=== PATIENT | female | born 1955 | race Caucasian/White ===

== ENCOUNTER 2020-02-09 09:20 | Outpatient (CLI) | payer OTHER, SELFPAY ==
--- NOTE | 2020-02-09 09:26 | MM_ITS ---
WS: [id number] DIAGNOSTIC BILATERAL DIGITAL MAMMOGRAM WITH CAD HISTORY: HX OF LT BREAST CA COMPARISON: 11/27/2014, 10/15/2014, 03/22/2013 and 03/18/2011 TECHNIQUE: Bilateral craniocaudad, mediolateral oblique, and mediolateral views are submitted. Comput er aided detection utilized. Breast composition: There are scattered areas of fibroglandular density. Ovoid nodule measuring 13 mm maximum diameter along the 3:00 axis of the LEFT breast, posterior. This nodule has been present on prior studies but has slightly increased in size by 3 to 4 mm in diameter. No associated distortion. There are a few additional benign calcifications within each breast. LEFT breast: Spot compression views (CC and MLO). True ML. Ultrasound to follow if abnormality sky erickson. MM/[place] [id number] IMPRESSION: BI-RADS: 0-Incomplete: Need additional imaging evaluation FOLLOW UP: Need Additional Imaging
== END 2020-02-09 09:21 | disposition home or self-care (01) ==
LOC: RADSHAW 09:20
PROVIDERS: PCP Family Medicine; Visit Provider Family Medicine
DX: Z85.3 Personal history of malignant neoplasm of breast (principal); N63.25 Unspecified lump in the left breast, overlapping quadrants
CPT/HCPCS: 77066; 77067

== ENCOUNTER 2020-03-15 08:21 | Outpatient (CLI) | payer OTHER, SELFPAY ==
--- NOTE | 2020-03-15 08:30 | US_ITS ---
WS: [id number] ADDITIONAL VIEWS LEFT MAMMOGRAM LEFT BREAST ULTRASOUND HISTORY: ABNORMAL MAMMOGRAM COMPARISON: 02/09/2020, 11/27/2014, 10/15/2014 and 03/22/2013 LEFT MAMMOGRAM: Spot compression views and true ML. Mass persists in the LEFT breast at 3:00 at a mid to posterior depth measuring 10.7 mm. Hyperdense fo cus along the periphery is probably a calcification. This mass has slowly increased in size from 2015 . Prior mammograms to 2015 are reviewed and this nodule is not present. LEFT BREAST ULTRASOUND 2-D and color Doppler imaging submitted. Ultrasound directed to the lateral LEFT breast from 2-4 o'clock. There is a hypoechoic nodule with a peripheral calcification or hyperechoic focus measuring 1.1 x 0.9 x 0.9 cm. Corresponds in size and l ocation and configuration to the mammographic abnormality. This mass is 3 cm from the nipple at 3:00. US/US breast LT limited* [id number] IMPRESSION: BI-RADS: 4-Suspicious Finding-Biopsy Should Be Considered FOLLOW UP: Biopsy Recommended Ultrasound-guided biopsy recommended of the LEFT breast mass at 3:00. Nodule is new since 2014 and slowly increased in size.
== END 2020-03-15 08:22 | disposition home or self-care (01) ==
LOC: RADSHAW 08:23
PROVIDERS: PCP Family Medicine; Visit Provider Family Medicine
DX: R92.8 Other abnormal and inconclusive findings on diagnostic imaging of breast (principal); N63.25 Unspecified lump in the left breast, overlapping quadrants
CPT/HCPCS: 76642; 77065

== ENCOUNTER → 2020-04-25 15:50 | Outpatient (BNVA) | payer OTHER, SELFPAY | PROVIDERS: PCP Family Medicine; Visit Provider Internal Medicine Cardiovascular Disease | DX: I47.1 Supraventricular tachycardia (principal); R00.2 Palpitations; R06.02 Shortness of breath | CPT/HCPCS: 80048; 83735 ==

== ENCOUNTER → 2020-05-15 09:12 | Outpatient (BNVA) | payer OTHER, SELFPAY | PROVIDERS: PCP Family Medicine; Referring Provider Family Medicine; Visit Provider Specialist | DX: M25.512 Pain in left shoulder (principal) | CPT/HCPCS: 73030 ==

== ENCOUNTER 2020-05-22 15:16 | Outpatient (CLI) | payer OTHER, SELFPAY ==
--- NOTE | 2020-05-22 15:15 | MR_ITS ---
WS: [id number] MRI LEFT SHOULDER NONCONTRAST TECHNIQUE: Sagittal T2, coronal T1, T2 and proton density imaging. Axial gradient PDE imaging. CLINICAL INFORMATION: M25.519 Pain in unspecified shoulder COMPARISON: None. FINDINGS: Mild degenerative arthritis at the AC joint with synovial thickening and mild edema. Mild downsloping of the acromion with subacromial spurring. Moderate narrowing subacromial space with impingement on the distal supraspinatus tendon. Tendinopathy in the distal supraspinatus. Tiny undersurface tear at the distal insertion. Normal infraspinatus. Normal teres minor and subscapularis. Normal biceps tendon in the bicipital avril ove. Normal biceps labral anchor. Glenoid labrum appears grossly normal. Normal intraarticular biceps tendon. MR/MR shoulder LT wo con* [id number] IMPRESSION: 1. Mild degenerative arthritis at the AC joint with moderate narrowing of the subacromial space. 2. Tendinopathy in the distal supraspinatus with a tiny undersurface tear at t he insertion. 3. Rotator cuff is otherwise intact. 4. Normal biceps tendon in the bicipital groove. Normal biceps labral anchor. 5. Glenoid labrum appears grossly normal.
== END 2020-05-22 15:17 | disposition home or self-care (01) ==
LOC: RADSHAW 15:21
PROVIDERS: PCP Family Medicine; Visit Provider Specialist
DX: M19.012 Primary osteoarthritis, left shoulder (principal)
CPT/HCPCS: 73221

== ENCOUNTER → 2020-06-27 15:46 | Outpatient (BNVA) | payer OTHER, SELFPAY | PROVIDERS: PCP Family Medicine; Visit Provider Internal Medicine Cardiovascular Disease | DX: Z20.828 Contact with and (suspected) exposure to other viral communicable diseases (principal); I47.1 Supraventricular tachycardia; R00.2 Palpitations; R55 Syncope and collapse; Z79.01 Long term (current) use of anticoagulants; R06.02 Shortness of breath | CPT/HCPCS: 85025; 87635 ==

== ENCOUNTER 2020-07-01 11:04 | Day surgery (SDC) | payer OTHER, SELFPAY ==
[2020-07-01 11:52] VITALS: BP 121/72; PULSE 66; RESP 16; TEMP 36.4; O2SAT 97; BMI 47.0
[2020-07-01] MEDS: cephALEXin 500 mg Capsule 2000 MG PO (12:30)
--- NOTE | 2020-07-01 12:47 | W.PM.OPSUD ---
Surgery/Procedure H&P Update DATE OF PROCEDURE: July 01, 2020 DATE H&P PERFORMED: 06/26/20 H&P UPDATE INFORMATION: I have reviewed H&P completed within last 30 days, I have examined patient prior to procedure and No changes to prior documentation PREOP DIAGNOSIS: Near syncope PLANNED PROCEDURE: Operation Date: 07/01/20 12:00 Proposed Procedures p Loop Recorder Insertion [id number] R55(Not Applicable) - Kisha Thompson MD PATIENT REASSESSED PRIOR TO SEDATION, WITH NO CHANGE NOTED: Yes PHYSICAL EXAM: alert, clear to auscultation bilaterally, regular rate & rhythm and operative site marked AIRWAY EVAL/ANESTHESIA PLAN: normal airway, ASA II, Local Anesthesia, Risks, benefits & alternatives of sedation and/or procedure discussed and Patient agrees to continue as planned
--- NOTE | 2020-07-01 13:02 | W.PM.OPSUD ---
Surgery/Procedure H&P Update DATE OF PROCEDURE: July 01, 2020 DATE H&P PERFORMED: 06/27/20 H&P UPDATE INFORMATION: I have reviewed H&P completed within last 30 days, I have examined patient prior to procedure and No changes to prior documentation PREOP DIAGNOSIS: Near syncope PLANNED PROCEDURE: Operation Date: 07/01/20 12:00 Proposed Procedures p Loop Recorder Insertion [id number] R55(Not Applicable) - Kisha Thompson MD PATIENT REASSESSED PRIOR TO SEDATION, WITH NO CHANGE NOTED: Yes PHYSICAL EXAM: alert, oriented x 3, clear to auscultation bilaterally, regular rate & rhythm and operative site marked AIRWAY EVAL/ANESTHESIA PLAN: normal airway, ASA II and Local Anesthesia
--- NOTE | 2020-07-01 13:03 | PM.OP ---
Operative Report Date of procedure: July 01, 2020 Pre-op Diagnosis: Near syncope Procedure: LOCATION: Cardiac Catheterization Laboratory REFERRING PROVIDER: Dr. LUBA Thompson PREOPERATIVE DIAGNOSIS: Recurrent near syncope POSTOPERATIVE DIAGNOSIS: Same ESTIMATED BLOOD LOSS: None COMPLICATIONS: None. [] BRIEF HISTORY: 65-year-old white female presented with complaints of recurrent episodes of palpitations/near syncope. She had an event monitor which was unremarkable with no arrhythmias. Her symptoms are very infrequent. For further evaluation of her symptoms, an implantable monitoring analyst was recommended. PROCEDURE: The procedure was explained to the patient in detail with the risks and benefits. The patient understood this well and consented to proceed. The patient was brought to the CPR you. The left side of the neck and the precordial region were cleaned and draped in a sterile fashion. 1% Xylocaine was used as local anesthetic agent. The patient was given a total of [] milligrams of Versed and [] milligrams of Fentanyl for IV sedation and analgesia. A [] inch long incision was made at the premarked area. By sharp and blunt dissection, the implantable monitoring analyst (ICM) pocket was made. Complete hemostasis was achieved. The pocket was copiously irrigated with Vancomycin solution. The implantable monitoring analyst was inserted in the pocket adn was attached to the pectoralis fascia by suturing with 0-Surgilon. Sponge counts were confirmed. The pocket was closed in layers. The skin was approximated using 4-0 Vicryl. IMPLANTED DEVICE: [] Model number: [] Serial number: [] Make: [] Parameters: Fast VT rate: 200 beats per minute (300 ms) for 30/40 beats. Ventricular tachycardia rate: 150 beats per minute for 16 beats. Asystole: 3 seconds. Bradycardic rate: 40 beats per minute for 4 beats. Symptom recording for three 7.5 minute episodes. Atrial fibrillation detection was turned on. Pressure dressing was applied over the insertion site. The patient was transferred to the medical floor in stable condition.
--- NOTE | 2020-07-01 13:10 | P.OP_ITS ---
Operative Report Date of procedure: July 01, 2020 Pre-op Diagnosis: Near syncope Procedure: Date of Procedure: 07/01/2020 Name of the procedure: IMPLANTABLE WEIGHT YARDAGE CHECKER INSERTION LOCATION: [facility] REFERRING PROVIDER: LUBA Thompson MD PREOPERATIVE DIAGNOSIS: Recurrent palpitations/near syncope POSTOPERATIVE DIAGNOSIS: Same. ESTIMATED BLOOD LOSS: None COMPLICATIONS: None. BRIEF HISTORY: Patient presented with recurrent episodes of palpitations/near syncope. He had an event monitor which didn't reveal any significant arrhythmias to explain the symptoms. For further evaluation, an implantable wax engraver was recommended PROCEDURE: The procedure was explained to the patient in detail with the risks and benefits. The risk of bleeding, hematoma, vascular injury, infection and other concomitant complications were explained in detail. The patient understood this well and consented to proceed. The patient was brought to the CPR you. The left side of the chest was cleaned and draped in a sterile fashion. 1% Xylocaine was used as local anesthetic agent. An incision was made in the left fourth intercostal space. Making use of the application device, the implantable wax engraver was inserted, subcutaneously. 5 minutes of manual pressure was applied, at the puncture site. The patient tolerated the procedure very well and there were no complications. No bleeding or hematoma. Steri-Strips were applied over the insertion site followed by a sterile dressing. Patient was sent back to the medical floor in stable condition IMPLANTED DEVICE Reveal LINQ Model number: [id number] Serial number: [id number] Make: [employer] Parameters: Standard settings were applied( (tachycardia rate of 152 beats per minute , bradycardia rate of 40 beats per minute and a pause of 3 seconds ; symptom recording -4 episodes of 7.5 minutes. Atrial fibrillation detection was turned on- recording threshold of ->6 minutes. Sensitivity was kept at 0.035 mV) The R wave sensing was 0.46 mV
[2020-07-01 13:42] VITALS: BP 135/62; PULSE 58; RESP 16; O2SAT 98
== END 2020-07-01 14:02 | disposition home or self-care (01) ==
PROVIDERS: PCP Family Medicine; Visit Provider Internal Medicine Cardiovascular Disease
PROC: (CPT 33285; principal; 2020-07-01 12:00)
DX: R55 Syncope and collapse (principal); J45.909 Unspecified asthma, uncomplicated; E78.5 Hyperlipidemia, unspecified; I10 Essential (primary) hypertension; E66.9 Obesity, unspecified; Z68.42 Body mass index [BMI] 45.0-49.9, adult; M19.90 Unspecified osteoarthritis, unspecified site; Z85.43 Personal history of malignant neoplasm of ovary
CPT/HCPCS: 12345; 33285; C1764

== ENCOUNTER → 2020-07-22 14:51 | Outpatient (BNVA) | payer OTHER, SELFPAY | PROVIDERS: PCP Family Medicine; Visit Provider Specialist | DX: M79.645 Pain in left finger(s) (principal) | CPT/HCPCS: 73140 ==

== ENCOUNTER 2020-07-22 15:37 | Outpatient (CLI) | payer OTHER, SELFPAY | END 2020-07-22 15:38 | disposition home or self-care (01) | LOC: SPT 07-23 08:41 | PROVIDERS: PCP Family Medicine; Visit Provider Specialist | DX: Z46.89 Encounter for fitting and adjustment of other specified devices (principal); M18.12 Unilateral primary osteoarthritis of first carpometacarpal joint, left hand; M18.11 Unilateral primary osteoarthritis of first carpometacarpal joint, right hand | CPT/HCPCS: 97760; L3924 ==

== ENCOUNTER 2020-07-30 06:00 | Outpatient (RCR) | payer OTHER, SELFPAY | END 2020-08-11 23:59 | disposition home or self-care (01) | LOC: SOT 06:00 | PROVIDERS: PCP Family Medicine; Referring Provider Specialist; Visit Provider Specialist | DX: M18.0 Bilateral primary osteoarthritis of first carpometacarpal joints (principal) | CPT/HCPCS: 97018; 97110; 97167; 97535 ==

== ENCOUNTER 2020-08-12 06:00 | Outpatient (RCR) | payer OTHER, SELFPAY | END 2020-09-08 23:59 | disposition home or self-care (01) | LOC: SOT 06:00 | PROVIDERS: PCP Family Medicine; Referring Provider Specialist; Visit Provider Specialist | DX: M18.0 Bilateral primary osteoarthritis of first carpometacarpal joints (principal) | CPT/HCPCS: 97018; 97035; 97110; 97530; 97535 ==

== ENCOUNTER → 2020-09-02 11:07 | Outpatient (BNVA) | payer OTHER, SELFPAY | PROVIDERS: PCP Family Medicine; Visit Provider Internal Medicine | DX: M19.041 Primary osteoarthritis, right hand (principal); M19.042 Primary osteoarthritis, left hand; M32.9 Systemic lupus erythematosus, unspecified; M25.50 Pain in unspecified joint; Z11.59 Encounter for screening for other viral diseases; R21 Rash and other nonspecific skin eruption; G62.9 Polyneuropathy, unspecified; Z87.891 Personal history of nicotine dependence | CPT/HCPCS: 99204 ==

== ENCOUNTER 2020-09-09 06:00 | Outpatient (RCR) | payer OTHER, SELFPAY | END 2020-10-09 23:00 | disposition home or self-care (01) | LOC: SOT 06:00 | PROVIDERS: PCP Family Medicine; Referring Provider Specialist; Visit Provider Specialist | DX: Z46.4 Encounter for fitting and adjustment of orthodontic device (principal); M18.0 Bilateral primary osteoarthritis of first carpometacarpal joints | CPT/HCPCS: 97110 ==

== ENCOUNTER → 2020-10-29 13:49 | Outpatient (BNVA) | payer OTHER, SELFPAY | PROVIDERS: PCP Family Medicine; Visit Provider Internal Medicine | DX: M25.50 Pain in unspecified joint (principal); R21 Rash and other nonspecific skin eruption; Z87.891 Personal history of nicotine dependence | CPT/HCPCS: 99214 ==

== ENCOUNTER 2020-12-10 11:40 | Outpatient (CLI) | payer OTHER, SELFPAY | END 2020-12-10 11:41 | disposition home or self-care (01) | LOC: LAB 03-05 10:27 | PROVIDERS: PCP Family Medicine; Visit Provider Internal Medicine Pulmonary Disease | DX: J45.909 Unspecified asthma, uncomplicated (principal) | CPT/HCPCS: 82785; 86003 ==

== ENCOUNTER → 2020-12-16 10:53 | Outpatient (BNVA) | payer OTHER, SELFPAY | PROVIDERS: PCP Family Medicine; Referring Provider Family Medicine; Visit Provider Podiatrist Foot & Ankle Surgery | DX: M79.672 Pain in left foot (principal) | CPT/HCPCS: 73630 ==

== ENCOUNTER 2020-12-30 13:32 | Outpatient (CLI) | payer OTHER, SELFPAY ==
--- NOTE | 2020-12-30 13:39 | MR_ITS ---
WS: [id number] MRI LEFT FOOT without CONTRAST. COMPARISON: LEFT foot radiographs 12/16/2020 Multiplanar, multisequence imaging is performed without contrast. Nondisplaced fracture has healed involving the proximal fifth toe. There is no marrow edema although there is decreased signal on the T1 sequences. There is mild displacement of the medial and lateral c ollateral ligaments with some increased T2 signal surrounding the fifth metatarsophalangeal joint. Fa vor there was probably some ligament injury and rupture. There is only minimal increased signal in th e soft tissues now present. The lateral collateral ligament cannot be seen in its entirety. No additional soft tissue or bone abnormalities. MR/MR foot LT wo con* [id number] IMPRESSION: 1. Highly suspicious for torn lateral collateral ligament and sprain of the me dial collateral ligament involving the fifth metatarsophalangeal joint. 2. Healing nondisplaced fracture proximal fifth toe.
== END 2020-12-30 13:33 | disposition home or self-care (01) ==
LOC: RADSHAW 13:35
PROVIDERS: PCP Family Medicine; Visit Provider Podiatrist Foot & Ankle Surgery
DX: M79.672 Pain in left foot (principal); S92.912A Unspecified fracture of left toe(s), initial encounter for closed fracture; X58.XXXA Exposure to other specified factors, initial encounter
CPT/HCPCS: 73718

== ENCOUNTER → 2021-01-15 10:12 | Outpatient (BNVA) | payer OTHER, SELFPAY | PROVIDERS: PCP Family Medicine; Visit Provider Internal Medicine Pulmonary Disease | DX: Z01.812 Encounter for preprocedural laboratory examination (principal); Z20.822 Contact with and (suspected) exposure to COVID-19 | CPT/HCPCS: 87635 ==

== ENCOUNTER 2021-01-21 15:00 | Outpatient (CLI) | payer OTHER, SELFPAY ==
--- NOTE | 2021-01-21 15:47 | PFTS_ITS ---
Date of Study:01/21/21 Date of Dictation: MECHANICS: Forced vital capacity (FVC) is reduced. Forced expiratory volume in one second (FEV1) is reduced. FEV1/FVC is normal. FLOW VOLUME LOOP: Narrow. LUNG VOLUMES: Total lung capacity (TLC) is reduced. Residual volume (RV) is normal. DIFFUSING CAPACITY FOR CARBON MONOXIDE: Normal. INTERPRETATION: The pulmonary function tests are consistent with moderate restriction. There is a significant postbronchodilator response. Lung volumes are consistent with restrictive lung disease. Gas exchange (DLCO) is normal. MTDD
== END 2021-01-21 15:01 | disposition home or self-care (01) ==
LOC: RT 15:04
PROVIDERS: PCP Family Medicine; Visit Provider Internal Medicine Pulmonary Disease
DX: J45.909 Unspecified asthma, uncomplicated (principal)
CPT/HCPCS: 82785; 86003; 94060; 94726; 94729; J7611

== ENCOUNTER → 2021-04-01 09:58 | Outpatient (BNVA) | payer OTHER, SELFPAY | PROVIDERS: PCP Family Medicine; Visit Provider Internal Medicine | DX: E66.9 Obesity, unspecified (principal); J98.4 Other disorders of lung | CPT/HCPCS: 36415; 80053; 85025; 86140; 86160 ==

== ENCOUNTER 2021-05-07 13:25 | Outpatient (CLI) | payer OTHER, SELFPAY ==
--- NOTE | 2021-05-07 13:30 | CT_ITS ---
WS: [id number] CT CHEST CT-HIGH RESOLUTION, NONCONTRAST. HISTORY: Interstitial lung disease. Technique: High-resolution chest CT is performed in inspiration, expiration, supine and prone positio laith. All CT scans at [facility] use at least one of these dose optimization techniques: automated exposure control; mA and/or kV adjustment per patient size (includes targeted exams where dose is mat ched to clinical indication); or iterative reconstruction. DLP: 2443.69 mGy.cm COMPARISON: 12/09/2016. Findings: Initial imaging through the lungs is significantly degraded by motion artifact. Lungs are m ildly hyperexpanded but there is no honeycombing or significant bronchiectasis identified. No persist ent groundglass attenuation or atelectasis. No lobar collapse. No pleural effusions or pneumothorax. No air trapping. No groundglass attenuation. Heart does appear moderately enlarged. No pericardial or pleural effusion. Prior cholecystectomy. No adrenal mass. CT/CT chest wo con [id number] Impression: 1. Quality of examination is limited by significant breathing motion artifact on the initial imaging through the chest. 2. No honeycombing or bronchiectasis or air trapping. No evidence for intersti tial lung disease.
--- NOTE | 2021-05-07 14:15 | USCV_ITS ---
Lea Lau Age: 66 Gender: F : 1955 Exam Date: 05/07/2021 14:08 Ordering Phys: Cole Red MD Technologist: Sandra Ruano [place]am [place] [facility] [place]: exertional sob BP: / HR: 62 Rhythm: Sinus Technical Quality: Adequate MEASUREMENTS (Male / Female) Normal Values 2D ECHO LV Diastolic Diameter PLAX 4.4 cm 4.2 - 5.9 / 3.9 - 5.3 cm LV Systolic Diameter PLAX 2.1 cm IVS Diastolic Thickness 1.3 cm 0.6 - 1.0 / 0.6 - 0.9 cm IVS Systolic Thickness 2.0 cm LVPW Diastolic Thickness 1.1 cm 0.6 - 1.0 / 0.6 - 0.9 cm LVPW Systolic Thickness 2.0 cm LVOT Diameter 2.0 cm LV Ejection Fraction 2D Teich 84.3 % LV Ejection Fraction MOD 2C 79.1 % LV Ejection Fraction 2C AL 80.6 % LA Diameter 3.2 cm LA Width 3.0 cm LA Height 5.9 cm RA Width 1.8 cm RA Height 5.5 cm Aorta at Sinotubular Diameter 2.6 cm DOPPLER AV Peak Velocity 151.0 cm/s LVOT Peak Velocity 158.0 cm/s AV Area Cont Eq vti 3.4 cm squared AV Area Cont Eq pk 3.4 cm squared MV Peak Velocity 104.0 cm/s MV Area PHT 3.1 cm squared Mitral E to A Ratio 0.8 MV E' Velocity 46.0 cm/s Mitral E to MV E' Ratio 12.3 Mitral E to LV E' Lateral Ratio 11.0 Mitral E to LV E' Septal Ratio 13.9 TR Peak Velocity 69.0 cm/s TR Peak Gradient 1.9 mmHg Right Atrial Pressure 3.0 mmHg Pulmonary Artery Systolic Pressu 4.9 mmHg PV Peak Velocity 84.0 cm/s RV Acceleration Time 0.1 s RV Ejection Time 0.3 s RV AcT/ET 0.4 FINDINGS Left Ventricle Normal left ventricular size and systolic function, EF 74 %. Mild left ventricular hypertrophy. No regional wall motion abnormalities. Grade I/IV diastolic dysfunction (abnormal relaxation filling pattern), normal to mildly elevated filling pressures. Right Ventricle The right ventricle is normal in size and function. Right Atrium The right atrium is normal in size. Left Atrium The left atrium is normal in size. Mitral Valve Trace mitral valve regurgitation. Aortic Valve Thickened aortic valve. Tricuspid Valve No gross abnormalities noted. Pulmonic Valve No gross abnormalities noted Pericardium Normal pericardium without effusion. Aorta Normal ascending aorta dimension. CONCLUSIONS Normal left ventricular size and systolic function, EF 74 %. Mild left ventricular hypertrophy. No regional wall motion abnormalities. Grade I/IV diastolic dysfunction (abnormal relaxation filling pattern), normal to mildly elevated filling pressures. Trace mitral valve regurgitation. There is no pericardial effusion. There are no intracardiac masses. Normal pulmonary artery peak systolic pressure No previous study is available for comparison. Dr Kisha Thompson MD FACC (Electronically Signed) Final Date: 07 May 2021 23:39 S
== END 2021-05-07 13:26 | disposition home or self-care (01) ==
LOC: RAD 13:27
PROVIDERS: PCP Family Medicine; Visit Provider Internal Medicine Pulmonary Disease
DX: J98.4 Other disorders of lung (principal); E66.9 Obesity, unspecified; R06.02 Shortness of breath; R06.00 Dyspnea, unspecified; I34.0 Nonrheumatic mitral (valve) insufficiency
CPT/HCPCS: 71250; 93306

== ENCOUNTER 2021-05-13 09:24 | Outpatient (CLI) | payer OTHER, SELFPAY | END 2021-05-13 09:25 | disposition home or self-care (01) | LOC: SPT 09:25 | PROVIDERS: PCP Family Medicine; Visit Provider Podiatrist Foot & Ankle Surgery | DX: Z46.89 Encounter for fitting and adjustment of other specified devices (principal); M77.42 Metatarsalgia, left foot; M79.673 Pain in unspecified foot | CPT/HCPCS: 97760; L4397 ==

== ENCOUNTER 2021-08-07 06:00 | Outpatient (RCR) | payer OTHER, SELFPAY | END 2021-08-11 23:59 | disposition home or self-care (01) | LOC: SOT 06:00 | PROVIDERS: PCP Family Medicine; Referring Provider Family Medicine; Visit Provider Family Medicine | DX: M79.643 Pain in unspecified hand (principal) | CPT/HCPCS: 97165 ==

== ENCOUNTER 2021-08-16 17:30 | Emergency (ER) | payer OTHER, MEDICARE, SELFPAY ==
[2021-08-16] VITALS (8 sets, daily range): BP systolic 133–145; BP diastolic 47–72; PULSE 80–95; RESP 16–18; TEMP 38.4; O2SAT 90–100; BMI 46.1
--- NOTE | 2021-08-16 19:02 | W.ED.COVID ---
HPI - COVID General: Chief Complaint: COVID symptoms Stated Complaint: SOB; Cough Time Seen by Provider: 08/16/21 19:02 Triage information: Has fever, cough or shortness of breath. No known COVID + exposure last 14 days History of Present Illness: Ms. Ha is a 65-year-old lady with complex past medical history including hypertension, hyperlipidemia, obesity, restrictive lung disease with positive bronchodilator results and numerous medication allergies who presents emergency department due to generalized symptoms. She reports being sick for a number of weeks now however symptoms have worsened over the past few days. She has had initially what was described as upper respiratory congestion with nasal congestion and sinus pressure and headache. Subsequently she feels like it was lower in her chest. She has had cough, pain in her back, and generalized malaise. She has had diarrhea and nausea but no vomiting. She has had some abdominal discomfort. Overall the course of symptoms has been worsening. The intensity is moderate to severe. She has tried symptom treatment at home without significant relief. She has not been vaccinated against Covid. Prior covid testing: no COVID 19 common symptoms: positive non-productive cough, dyspnea, nasal congestion, nausea and diarrhea Onset (ago): week(s) Severity: moderate Pertinent comorbid conditions: hypertension and COPD/respiratory disease COVID Results: Nasal/Oral Coronavirus 2019 PCR Not detected 01/15/21 10:12 01/15/21 SARS-CoV-2 (PCR) Detected (NOT DETECT) A 08/16/21 20:25 08/16/21 Coronavirus Type 229E (PCR) Not detected (NOT DETECT) 08/16/21 20:25 08/16/21 Review of Systems General: Reports: 10 or more systems reviewed and unremarkable except in HPI and below ENMT: Reports: nasal congestion Resp: Reports: dyspnea and non-productive cough GI: Reports: nausea and diarrhea PFSH ED PFSH: Medical History (Updated 08/21/21 @ 17:41 by Gómez Edward MD) Asthma Benign essential HTN Bursitis Carpal tunnel syndrome CKD (chronic kidney disease) COVID-19 Dyslipidemia History of breast cancer Hx of ovarian cancer Hyperlipidemia Hypertension Lupus Near syncope Neuropathy Obesity Osteoarthritis Ovarian cancer PTSD (post-traumatic stress disorder) SVT (supraventricular tachycardia) Transient global amnesia Ulnar tunnel syndrome Surgical History (Updated 08/21/21 @ 17:41 by Gómez Edward MD) H/O lumpectomy H/O oophorectomy History of cataract extraction History of hysterectomy History of tonsillectomy and adenoidectomy Hx of section Hx of cholecystectomy Hx of umbilical hernia repair Family History Daughter Anesthesia complication Father CAD (coronary artery disease) Dementia Stroke Grandmother Cancer Grandfather Cancer Brother Lung disease Mother Suicide Sister Suicide Other Hyperlipidemia Hypertension Denies family history of Rheumatoid arthritis Diabetes Lupus Clotting disorder Chronic kidney disease (CKD) Bleeding disorder Social History Quit status (tobacco): has quit using tobacco Year quit tobacco: 2004 Former quit date comment: [id number] Second hand smoke exposure: No Smoking risk assessment/counseling performed?: Yes Alcohol intake: current Alcohol intake frequency: holidays/special occasions only Lives independently: Yes Household members: spouse Marital status: service: Yes Current occupational status: disabled Pets and animals: Yes History of recent travel: No Current gender identity: Female Physical Exam Const: COMMON NORMALS: alert GENERAL APPEARANCE: cooperative and well developed OTHER: Mildly ill appearance. HENMT: COMMON NORMALS: normocephalic and atraumatic HEAD & SCALP: normocephalic and atraumatic OTHER: Dry mucous membranes Eye: COMMON NORMALS: conjunctivae normal CONJUNCTIVA: Yes conjunctivae normal SCLERA: sclerae normal Neck/C-Spine: COMMON NORMALS: supple GENERAL: Yes trachea midline Resp: COMMON NORMALS: normal respiratory effort EFFORT & INSPECTION: Yes able to speak in complete sentences AUSCULTATION: rhonchi lower bilaterally Cardio: COMMON NORMALS: regular rate and regular rhythm RATE: regular rate RHYTHM: regular rhythm GI: COMMON NORMALS: Soft to palpation PALPATION: Yes Soft to palpation and No Tenderness to palpation present (GI) Extremity: GENERAL: Yes normal exam except as noted and No edema Neuro: COMMON NORMALS: moves all extremities SENSORIUM/ORIENTATION: Yes alert and No Orientation impaired Psych: COMMON NORMALS: mental status grossly normal and Normal thought process present THOUGHT PROCESS: Normal thought process present Course ED course: - Patient was seen and evaluated by me at bedside - Patient placed on cardiac monitors, IV access obtained - Initial evaluation notable for exam as above -Symptom treatments ordered - Labs notable for no significant hematologic abnormalities. Metabolic panel consistent with mild dehydration. Delta troponin is negative. Covid positive. - Imaging notable for patchy parenchymal opacities - Upon serial reexamination after treatment the patient was mildly improved - Based on patient history, evaluation, labs, and imaging as interpreted the most likely cause of the patient's condition is COVID-19 - The results of ED evaluation were discussed with the patient including prescriptions and/or symptomatic cares (if applicable) including appropriate and responsible use, followup plan, and return precautions. The patient verbalized understanding and felt safe for discharge. - Patient discharged in satisfactory condition. Note: Click bubbles or prepopulated carl[place] in note writing are used for assistance with data collection and billing and are inherently more limited than narrative and other text portions of this note. Please use narrative for additional clinical history and defer to narrative/free test for any case of contradictory information. If information appears in only free text or click bubble it should be considered present or absent as reported. Please contact note policy writer sales for clarifications of clinical information or contradictory information. MDM is a brief summary, contradictory or erroneous seeming information should be clarified and full note should be reviewed. Vital Signs: Vital signs: Vital Signs Temperature 101.2 F H 08/16/21 18:27 Pulse Rate 82 08/16/21 22:48 Respiratory Rate 17 08/16/21 22:48 Blood Pressure 145/47 08/16/21 22:48 Pulse Oximetry 98 08/16/21 23:09 MDM - COVID Medical Decision Making 66-year-old lady with history of restrictive lung disease with positive bronchodilator results presenting with shortness of breath and generalized symptoms. Patient found to be Covid positive which likely explains her symptoms. She does require 2 L of oxygen with exertion. She will be discharged with home oxygen and strict return precautions. Medical Records I reviewed the patient's medical records. Lab Data I reviewed the patient's lab results. : 08/16/21 19:50 08/16/21 19:50 Radiology Impressions Chest X-Ray 08/16/21 19:26 IMPRESSION: Patchy parenchymal opacities greater on left than right in the lower lungs. This could represent sequela of atypical pneumonia, including COVID-19 infection. Laboratory Results WBC 7.0 10^3/uL (4.0-10.0) 08/16/21 19:50 RBC 4.35 10^6/uL (4.1-5.3) 08/16/21 19:50 Hgb 12.6 g/dL (11.5-15.3) 08/16/21 19:50 Hct 38.6 % (37.0-47.0) 08/16/21 19:50 MCV 88.7 fl (81-99) 08/16/21 19:50 MCH 29.0 pg (28.0-34.0) 08/16/21 19:50 MCHC 32.6 g/dL (30.0-36.0) 08/16/21 19:50 RDW 13.0 % (12.1-15.1) 08/16/21 19:50 Plt Count 251 10^3/cmm (130-400) 08/16/21 19:50 MPV 10.3 fL (7.4-10.4) 08/16/21 19:50 Neut % (Auto) 76.3 % 08/16/21 19:50 Lymph % (Auto) 16.6 % 08/16/21 19:50 [place] % (Auto) 6.7 % 08/16/21 19:50 Eos % (Auto) 0.0 % 08/16/21 19:50 Baso % (Auto) 0.1 % 08/16/21 19:50 Neut # (Auto) 5.31 10^3/uL (1.8-7.7) 08/16/21 19:50 Lymph # (Auto) 1.2 10^3/uL (0.8-4.8) 08/16/21 19:50 [place] # (Auto) 0.5 10^3/uL (0.2-0.9) 08/16/21 19:50 Eos # (Auto) 0.0 10^3/uL (0.0-0.8) 08/16/21 19:50 Baso # (Auto) 0.0 10^3/uL (0.0-0.1) 08/16/21 19:50 Nucleated RBC % (auto) 0 % 08/16/21 19:50 Nucleated RBCs # 0.0 /100WBC 08/16/21 19:50 Sodium 134 mmol/L (136-145) L 08/16/21 19:50 Potassium 4.9 mmol/L (3.5-5.1) 08/16/21 19:50 Chloride 100 mmol/L (98-107) 08/16/21 19:50 Carbon Dioxide 19 mmol/L (22-29) L 08/16/21 19:50 Anion Gap 19.9 (5-19) H 08/16/21 19:50 BUN 27 mg/dL (8-23) H 08/16/21 19:50 Creatinine 2.1 mg/dL (0.5-0.9) H 08/16/21 19:50 GFR Calculation 23.6 mL/min (90-130) L 08/16/21 19:50 Glucose 113 mg/dL (65-115) 08/16/21 19:50 Calculated Osmolality 284 mOsm/kg (285-295) L 08/16/21 19:50 Calcium 9.3 mg/dL (8.5-10.5) 08/16/21 19:50 Total Bilirubin 0.2 mg/dL (0.15-1.2) 08/16/21 19:50 AST 29 U/L (0-32) 08/16/21 19:50 ALT 24 U/L (0-33) 08/16/21 19:50 Alkaline Phosphatase 103 IU/L (35-105) 08/16/21 19:50 Troponin T Baseline 14 ng/L (0-10) H 08/16/21 19:50 Troponin T 120 Minute 12.13 ng/L (0-10) H 08/16/21 22:00 Delta Troponin T -1.87 ABS# (0-10) L 08/16/21 22:00 C-Reactive Protein 42.7 mg/L (0.0-4.9) H 08/16/21 19:50 NT-Pro-B Natriuret Pep 137 pg/mL (0-125) H 08/16/21 19:50 Total Protein 6.8 g/dL (6.6-8.7) 08/16/21 19:50 Albumin 4.2 g/dL (3.5-5.2) 08/16/21 19:50 Globulin 2.6 g/dL (1.3-4.6) 08/16/21 19:50 Procalcitonin 0.16 ng/mL (0-0.5) 02/05/22 19:50 Coronavirus 229E (PCR) Not detected (NOT DETECT) 08/16/21 20:25 SARS-CoV-2 (PCR) Detected (NOT DETECT) A 08/16/21 20:25 Group A Strep Rapid Negative (Negative) 08/16/21 20:25 Nasal/Oral Coronavirus 2019 PCR Not detected 01/15/21 10:12 01/15/21 SARS-CoV-2 (PCR) Detected (NOT DETECT) A 08/16/21 20:25 08/16/21 Coronavirus Type 229E (PCR) Not detected (NOT DETECT) 08/16/21 20:25 08/16/21 EKG Data EKG 1: Interpretation: I personally interpreted this EKG. Interpretation date 08/16/2021 at time 2142 Twelve-lead EKG shows a regular rhythm at a rate of 85. AL interval 143, QRS duration 92, QTc 387. Normal axis. Interpretation: Sinus rhythm. Discharge Plan Discharge Patient Disposition: Home Clinical Impression: COVID-19 Condition: Stable Prescriptions: New dexamethasone [Decadron] 6 mg tablet 6 mg PO DAILY Qty: 10 0RF ondansetron 4 mg tablet,disintegrating 4 mg PO Q8H PRN (Reason: nausea and vomiting) 5 Days Qty: 15 0RF No Action verapamil 180 mg capsule,ext rel. pellets 24 hr 180 mg PO DAILY 90 Days Qty: 90 3RF albuterol sulfate 2.5 mg /3 mL (0.083 %) solution for nebulization 2.5 mg inhalation Q4H PRN (Reason: Shortness Of Breath) 0RF albuterol sulfate [ProAir HFA] 90 mcg/actuation HFA aerosol inhaler 2 puff inhalation Q6H PRN (Reason: Shortness Of Breath) 0RF (DME) Night Splint to the left See Rx Instructions .Route .MEDSUPPLY Qty: 1 0RF Rx Instructions: As directed Zyrtec 10 mg capsule 10 mg PO DAILY 0RF cholecalciferol (vitamin D3) 4,000 unit capsule 4,000 unit PO DAILY 0RF epinephrine 0.3 mg/0.3 mL auto-injector 0.3 mg IM Q10M PRN (Reason: Allergic Reaction) 0RF hydroxyzine HCl 25 mg tablet 25 mg PO TID PRN (Reason: Anxiety) 0RF lidocaine 5 % adhesive patch,medicated 1 patch TOPICAL DAILY 0RF miconazole nitrate 2 % powder 1 applic TOPICAL DAILY 0RF montelukast [Singulair] 10 mg tablet 10 mg PO DAILY 0RF polyvinyl alcohol 1.4 % drops 1 drop ophthalmic (eye) Q4H PRN (Reason: Dry Eyes) 0RF triamterene-hydrochlorothiazid [Maxzide] 75-50 mg tablet 1 tab PO BID 0RF omeprazole 20 mg capsule,delayed release(DR/EC) 20 mg PO DAILY 0RF (DME) [facility] See Rx Instructions .Route .MEDSUPPLY Qty: 2 0RF Rx Instructions: As directed fluoxetine [Prozac] 20 mg capsule 20 mg PO DAILY 0RF aspirin [Adult Aspirin Regimen] 81 mg tablet,delayed release (DR/EC) 81 mg PO DAILY 0RF fluticasone propion-salmeterol [Wixela Inhub] 250-50 mcg/dose blister with device 1 inh inhalation BID Qty: 60 3RF Discharge Orders: Discharge ED (Routine); Ordered 08/16/21 Ordered By: Francisco Camacho Other Ambulatory Orders: DME: Oxygen (Order) Location: None Selected Ordered By: Francisco Camacho Referrals: Radha Agustin MD [Primary Care Provider] - Patient Instructions: COVID-19 (Coronavirus Disease 2019) (ED), Opioid Safety Activity Restrictions/Additional Instructions: Thank you for visiting the emergency department. You were seen and evaluated for generalized illness including headache, cough, diarrhea, and associated symptoms. You are found to have COVID-19 which I believe explains your symptoms. Please follow-up with your primary care provider. Please return to the emergency department for inability to tolerate oral intake, worsening symptoms, oxygen saturation less than 90% despite 2 L of oxygen via nasal cannula, chest pain, or anything else that you are concerned about and feel needs emergency department evaluation. Coding Level of Care Code ED Licensed Loan Officer Assistant for Janet Lea
--- NOTE | 2021-08-16 19:26 | XRR_ITS ---
PROCEDURE INFORMATION: Exam: XR Chest Exam date and time: 08/16/2021 7:26 PM Age: 66 years old Clinical indication: Cough TECHNIQUE: Imaging protocol: XR of the chest. Views: 1 view. COMPARISON: CT chest con [id number] 05/07/2021 2:38 PM FINDINGS: Tubes, catheters and devices: Left chest loop recorder device present. Lungs: Patchy ground-glass changes in the peripheral lungs greater on left than right in the lower lung carlton. Lungs are hypoaerated. Pleural spaces: Unremarkable. No pleural effusion. No pneumothorax. Heart/Mediastinum: Unremarkable. No cardiomegaly. Bones/joints: Unremarkable. XR/XR chest 1V portable [id number] IMPRESSION: Patchy parenchymal opacities greater on left than right in the lower lungs. This could represent sequela of atypical pneumonia, including COVID-19 infection.
--- NOTE | 2021-08-16 19:26 | ECG_ITS ---
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 Measurements Intervals [place] Rate: 80 P: -28 ID: [id number] QRS: 14 QRSD: 86 T: 0 QT: 332 QTc: 383 Interpretive Statements SINUS RHYTHM LOW QRS VOLTAGE [QRS DEFLECTION < 0.5/1.0 mV IN LIMB/CHEST LEADS] No previous ECG available for comparison Electronically Signed On 08-17-2021 17:00:03 TREE PULLER by Yudith Martinez M.D. [id number]
[2021-08-16] MEDS: ipratropium-albuterol 3 mL Neb INHALATION (20:13)
[2021-08-16 20:19] LABS: Basophils % 0.1 %; Hematocrit 38.6 % (37.0-47.0); Hemoglobin 12.6 g/dL (11.5-15.3); Lymphocytes # 1.2 10^3/uL (0.8-4.8); Lymphocytes % 16.6 %; Mean Corpuscular HGB Conc 32.6 g/dL (30.0-36.0); Mean Corpuscular Volume 88.7 fl (81-99); Mean Platelet Volume 10.3 fL (7.4-10.4); Monocytes # 0.5 10^3/uL (0.2-0.9); Monocytes % 6.7 %; Neutrophils # 5.31 10^3/uL (1.8-7.7); Neutrophils % 76.3 %; Nucleated Red Blood Cells % 0 %; Platelet Count 251 10^3/cmm (130-400); Red Blood Count 4.35 10^6/uL (4.1-5.3)
[2021-08-16] MEDS: sodium chloride 0.9% 1,000 ML 999 ML IV (20:30)
[2021-08-16 20:40] LABS: Troponin(5th) Baseline 14 ng/L (0-10)
[2021-08-16 20:48] LABS: NT Pro B Type Natriuretic Pept 137 pg/mL (0-125); Procalcitonin 0.16 ng/mL (0-0.5)
[2021-08-16 20:59] LABS: Alanine Aminotransferase 24 U/L (0-33); Albumin Level 4.2 g/dL (3.5-5.2); Alkaline Phosphatase 103 IU/L (35-105); Anion Gap 19.9 (5-19); Aspartate Amino Transferase 29 U/L (0-32); Blood Urea Nitrogen 27 mg/dL (8-23); C Reactive Protein 42.7 mg/L (0.0-4.9); Calcium 9.3 mg/dL (8.5-10.5); Carbon Dioxide 19 mmol/L (22-29); Chloride 100 mmol/L (98-107); Globulin 2.6 g/dL (1.3-4.6); Glomerular Filtration Rate 23.6 mL/min (90-130); Glucose 113 mg/dL (65-115); Osmolality Calculated 284 mOsm/kg (285-295); Potassium 4.9 mmol/L (3.5-5.1); Sodium 134 mmol/L (136-145); Total Bilirubin 0.2 mg/dL (0.15-1.2); Total Protein 6.8 g/dL (6.6-8.7)
[2021-08-16 21:07] LABS: Rapid Strep A Test Negative (Negative)
[2021-08-16] MEDS: ondansetron 2 mg/ML SDV 2 mL 4 MG IVP (21:18)
[2021-08-16] MEDS: morphine 4 mg/mL SDV 1 mL IVP (21:18)
--- NOTE | 2021-08-16 21:26 | ECG_ITS ---
[facility] Test Date: 2021-08-16 Pat Name: Lea Lau Department: Room: Gender: Female Submarine Operator: : 1955 Requested By: Francisco Camacho Order Number: [id number] Leonid MD: uYdith Martinez M.D. Measurements Intervals [place] Rate: 85 P: 5 DC: 143 QRS: 24 QRSD: 92 T: 29 QT: 345 QTc: 412 Interpretive Statements SINUS RHYTHM LOW QRS VOLTAGE IN PRECORDIAL LEADS [QRS DEFLECTION < 1.0 mV IN CHEST LEADS] Compared to ECG 08/16/2021 20:10:18 No significant changes Electronically Signed On 08-17-2021 17:05:17 ACID CUTTER by Yudith Martinez M.D. [id number]
[2021-08-16 22:37] LABS: Adenovirus Not Detected (NOT DETECT); Chlamydia Pneumoniae Not Detected (NOT DETECT); Coronavirus 229E,HKU1,NL63,OC4 Not Detected (NOT DETECT); Human Metapneumovirus Not Detected (NOT DETECT); Human Rhinovirus/Enterovirus Not Detected (NOT DETECT); Influenza A Not Detected (NOT DETECT); Influenza A H1 Not Detected (NOT DETECT); Influenza A H1-2009 Not Detected (NOT DETECT); Influenza A H3 Not Detected (NOT DETECT); Influenza B Not Detected (NOT DETECT); Mycoplasma Pneumoniae Not Detected (NOT DETECT); Parainfluenza Virus Type 1 Not Detected (NOT DETECT); Parainfluenza Virus Type 2 Not Detected (NOT DETECT); Parainfluenza Virus Type 3 Not Detected (NOT DETECT); Parainfluenza Virus Type 4 Not Detected (NOT DETECT); Respiratory Syncytial Virus A Not Detected (NOT DETECT); Respiratory Syncytial Virus B Not Detected (NOT DETECT); SARS-COV-2 Detected (NOT DETECT)
[2021-08-16] MEDS: diphenhydrAMINE 50 mg/mL SDV 1mL 25 MG IVP (22:40)
[2021-08-16] MEDS: metoclopramide 5 mg/mL SDV 2 mL 10 MG IVP (22:40)
[2021-08-16 22:44] LABS: Troponin 5 2HR 12.13 ng/L (0-10)
[2021-08-16 22:46] LABS: Troponin 5 2HR Delta -1.87 ABS# (0-10)
== END 2021-08-17 00:50 | disposition home or self-care (01) ==
PROVIDERS: Emergency Provider Emergency Medicine; PCP Family Medicine
DX: U07.1 COVID-19 (principal); Z79.82 Long term (current) use of aspirin; E78.5 Hyperlipidemia, unspecified; Z85.3 Personal history of malignant neoplasm of breast; Z85.43 Personal history of malignant neoplasm of ovary; I10 Essential (primary) hypertension; Z87.891 Personal history of nicotine dependence
CPT/HCPCS: 71045; 80053; 83880; 84145; 84484; 85025; 86140; 87081; 87635; 87880; 93005; 94640; 96361; 96374; 96375; 99284; J1200; J2270; J2405; J2765; J7030

== ENCOUNTER 2021-08-20 17:19 | Inpatient (IN) | payer OTHER, MEDICARE, SELFPAY ==
[2021-08-20] VITALS (20 sets, daily range): BP systolic 106–146; BP diastolic 45–66; PULSE 70–88; RESP 19–39; TEMP 36.7; O2SAT 90–98; BMI 46.3
--- NOTE | 2021-08-20 17:28 | XRR_ITS ---
PROCEDURE INFORMATION: Exam: XR Chest Exam date and time: 08/20/2021 5:28 PM Age: 66 years old Clinical indication: Cough; Additional info: Covid TECHNIQUE: Imaging protocol: XR of the chest. Views: 1 view. COMPARISON: CR (CHEST, ) 08/16/2021 8:00 PM FINDINGS: Lungs: Moderate severity bilateral patchy ground-glass opacities. Pleural spaces: There is no pleural effusion or pneumothorax. Heart/Mediastinum: Cardiomediastinal contours are unremarkable. Bones/joints: Bones are unremarkable. XR/XR chest 1V portable [id number] IMPRESSION: Moderate severity bilateral lung disease. Commonly reported imaging features of COVID-19 pneumonia are present. Other processes such as influenza pneumonia and organizing pneumonia (as can be seen with drug toxicity and connective tissue disease), can produce a similar imaging pattern.
--- NOTE | 2021-08-20 17:29 | ECG_ITS ---
[facility] Test Date: 2021-08-20 Pat Name: Lea Lau Department: Room: Gender: Female Mophead Trimmer And Wrapper: : 1955 Requested By: Janet De La Cruz Order Number: [id number] Leonid MD: Yudith Martinez M.D. Measurements Intervals [place] Rate: 81 P: 29 AR: 143 QRS: 39 QRSD: 100 T: 29 QT: 359 QTc: 419 Interpretive Statements SINUS RHYTHM Compared to ECG 08/16/2021 21:36:07 No significant changes Electronically Signed On 08-21-2021 11:02:55 APPLICATION DEVELOPMENT DIRECTOR by Yudith Martinez M.D. [id number]
--- NOTE | 2021-08-20 18:06 | W.ED.COVID ---
HPI - COVID General: Chief Complaint: COVID symptoms Stated Complaint: COVID +/ RESPIRATORY DISTRESS Time Seen by Provider: 08/20/21 17:20 Triage information: Has fever, cough or shortness of breath. Exposure to COVID + person last 14 days History of Present Illness: COVID 19 common symptoms: negative fever(s), chills, non-productive cough, dyspnea, nausea, vomiting or diarrhea COVID 19 other sytmptoms: negative chest pain COVID Results: Nasal/Oral Coronavirus 2019 PCR Not detected 01/15/21 10:12 01/15/21 SARS-CoV-2 (PCR) Detected (NOT DETECT) A 08/16/21 20:25 08/16/21 Coronavirus Type 229E (PCR) Not detected (NOT DETECT) 08/16/21 20:25 08/16/21 Review of Systems Const: Denies: fever(s) or chills Eyes: Denies: change in vision ENMT: Denies: mouth pain Card: Denies: chest pain or palpitations Resp: Denies: dyspnea or non-productive cough GI: Denies: abdominal pain, nausea, vomiting or diarrhea : Denies: dysuria Musc: Denies: extremity pain Skin/Breast: Denies: rash or new lesions Neuro: Denies: weakness in extremities Psych: Reports: other (Normal mood) Ab/Lymph: Denies: easy bruising PFSH ED PFSH: Medical History Asthma Benign essential HTN Bursitis COVID-19 Dyslipidemia History of breast cancer Hx of ovarian cancer Hyperlipidemia Hypertension Lupus Near syncope Obesity Osteoarthritis Ovarian cancer SVT (supraventricular tachycardia) Surgical History H/O lumpectomy H/O oophorectomy History of cataract extraction History of tonsillectomy and adenoidectomy Hx of section Hx of cholecystectomy Hx of umbilical hernia repair Family History Daughter Anesthesia complication Father CAD (coronary artery disease) Dementia Stroke Grandmother Cancer Grandfather Cancer Brother Lung disease Mother Suicide Sister Suicide Other Hyperlipidemia Hypertension Denies family history of Rheumatoid arthritis Diabetes Lupus Clotting disorder Chronic kidney disease (CKD) Bleeding disorder Social History Quit status (tobacco): has quit using tobacco Year quit tobacco: 2004 Former quit date comment: [id number] Second hand smoke exposure: No Smoking risk assessment/counseling performed?: Yes Alcohol intake: current Alcohol intake frequency: holidays/special occasions only Lives independently: Yes Household members: spouse Marital status: service: Yes Current occupational status: disabled Pets and animals: Yes History of recent travel: No Current gender identity: Female Physical Exam Narrative: EXAM NARRATIVE: Head: Atraumatic Eyes: PERRL, conjunctiva without injection ENT: Dry membrane moist NECK: Supple without lymphadenopathy LUNGS: +Coarse lung sounds, +rhonchi and crackles throughout the lung carl[place], +unable to speak full sentences, +increased work of breathing CV: RRR ABDOMEN: Soft, nontender in all quadrants, no guarding or rebound tenderness EXTREMITY: Normal ROM SKIN: No rash or erythema NEURO: Awake and alert. No focal motor deficits. PSYCH: Normal mood and affect. Const: COMMON NORMALS: alert HENMT: COMMON NORMALS: atraumatic HEAD & SCALP: atraumatic MOUTH: moist mucous membranes not abnormal Eye: COMMON NORMALS: EOMs intact bilaterally and conjunctivae normal CONJUNCTIVA: Yes conjunctivae normal Neck/C-Spine: COMMON NORMALS: full ROM and supple Resp: COMMON NORMALS: normal respiratory effort and clear to auscultation bilaterally AUSCULTATION: clear to auscultation bilaterally Cardio: COMMON NORMALS: regular rate RATE: regular rate GI: COMMON NORMALS: Soft to palpation and non-tender PALPATION: Yes Soft to palpation Extremity: COMMON NORMALS: full ROM Neuro: SENSORIUM/ORIENTATION: Yes alert MOTOR EXAM: No Abnormal motor strength present and Other motor observations present (no focal motor deficits) Psych: COMMON NORMALS: speech normal SPEECH: Yes normal speech MOOD & AFFECT: Yes euthymic mood Course Vital Signs: Vital signs: Vital Signs Pulse Rate 87 08/20/21 17:58 Respiratory Rate 26 H 08/20/21 17:58 Blood Pressure 146/53 08/20/21 17:31 Pulse Oximetry 93 08/20/21 17:58 MDM - COVID Lab Data Radiology Impressions Chest X-Ray 08/20/21 17:28 IMPRESSION: Moderate severity bilateral lung disease. Commonly reported imaging features of COVID-19 pneumonia are present. Other processes such as influenza pneumonia and organizing pneumonia (as can be seen with drug toxicity and connective tissue disease), can produce a similar imaging pattern. ADDENDUM: 08/20/21 1809 Findings are increased since the prior chest radiograph on 08/16/2021. Nasal/Oral Coronavirus 2019 PCR Not detected 01/15/21 10:12 01/15/21 SARS-CoV-2 (PCR) Detected (NOT DETECT) A 08/16/21 20:25 08/16/21 Coronavirus Type 229E (PCR) Not detected (NOT DETECT) 08/16/21 20:25 08/16/21 Discharge Plan Discharge Patient Disposition: Admitted As Inpatient Clinical Impression: 2019 novel coronavirus-infected pneumonia (NCIP), Acute hypoxemic respiratory failure, Acute dyspnea Condition: Stable Coding Level of Care Code ED Purchasing Intern for Janet Lea
--- NOTE | 2021-08-20 18:28 | ED_ITS ---
HPI - General Adult General: Chief complaint: COVID symptoms Stated complaint: COVID +/ RESPIRATORY DISTRESS Time Seen by Provider: 08/20/21 17:20 History of Present Illness: CC: Shortness of breath, fever and generalized weakness HPI: This is a [66] yo patient w/ hx of prediabetes, HTN, COPD/assthma, obesity BIBA for moderate respiratory distress at home x 3 weeks. She has been diagnosed covid positiveon 08/16/2020 now progressively worsening symptoms. Patient was sent home on 2L last week and now has gotten significantly worse. Per EMS, patient was satting at 60% on room air earlier today improved to 90% on 2 L of oxygen denies denies chest pain, N/V, diaphoresis, exertional shortness of breath, GI or other complaints. Denies any pleuritic chest pain, recent surgery/immobilization/travel, or hematemesis or hx of VTE in the past. Onset: 3 weeks ago Duration: ongoing for the last 21 days Location: home Severity: moderate/severe Associated symptoms: Reports dyspnea and malaise; Deny chest pain, nausea, rash, palpitations or vomiting Review of Systems Const: Reports: chills, body aches, fatigue, malaise and other (+generalized weakness); Denies: fever(s) Eyes: Denies: change in vision ENMT: Denies: mouth pain Card: Denies: chest pain or palpitations Resp: Reports: dyspnea and non-productive cough GI: Denies: abdominal pain, nausea, vomiting or diarrhea : Denies: dysuria Musc: Denies: extremity pain Skin/Breast: Denies: rash or new lesions Neuro: Denies: weakness in extremities Psych: Reports: other (Normal mood) Ab/Lymph: Denies: easy bruising PFSH ED PFSH: Medical History Asthma Benign essential HTN Bursitis COVID-19 Dyslipidemia History of breast cancer Hx of ovarian cancer Hyperlipidemia Hypertension Lupus Near syncope Obesity Osteoarthritis Ovarian cancer SVT (supraventricular tachycardia) Surgical History H/O lumpectomy H/O oophorectomy History of cataract extraction History of tonsillectomy and adenoidectomy Hx of section Hx of cholecystectomy Hx of umbilical hernia repair Family History Daughter Anesthesia complication Father CAD (coronary artery disease) Dementia Stroke Grandmother Cancer Grandfather Cancer Brother Lung disease Mother Suicide Sister Suicide Other Hyperlipidemia Hypertension Denies family history of Rheumatoid arthritis Diabetes Lupus Clotting disorder Chronic kidney disease (CKD) Bleeding disorder Social History Quit status (tobacco): has quit using tobacco Year quit tobacco: 2004 Former quit date comment: [id number] Second hand smoke exposure: No Smoking risk assessment/counseling performed?: Yes Alcohol intake: current Alcohol intake frequency: holidays/special occasions only Lives independently: Yes Household members: spouse Marital status: service: Yes Current occupational status: disabled Pets and animals: Yes History of recent travel: No Current gender identity: Female Physical Exam Const: COMMON NORMALS: alert HENMT: COMMON NORMALS: atraumatic HEAD & SCALP: atraumatic MOUTH: moist mucous membranes not abnormal Eye: COMMON NORMALS: EOMs intact bilaterally and conjunctivae normal CONJUNCTIVA: Yes conjunctivae normal Neck/C-Spine: COMMON NORMALS: full ROM and supple Resp: OTHER: +tachypnea, + coarse breath sounds bilaterally, + increased work of breathing Cardio: COMMON NORMALS: regular rate RATE: regular rate GI: COMMON NORMALS: Soft to palpation and non-tender PALPATION: Yes Soft to palpation Extremity: COMMON NORMALS: full ROM Neuro: SENSORIUM/ORIENTATION: Yes alert MOTOR EXAM: No Abnormal motor strength present and Other motor observations present (no focal motor deficits) Psych: COMMON NORMALS: speech normal SPEECH: Yes normal speech MOOD & AFFECT: Yes euthymic mood Course Vital Signs: Vital signs: Vital Signs Pulse Rate 87 08/20/21 17:58 Respiratory Rate 28 H 08/20/21 18:51 Blood Pressure 146/53 08/20/21 17:31 Pulse Oximetry 94 08/20/21 18:51 MDM - General Adult Medical Decision Making [66]yo patient w/ hx of covid PNA BIBA for worsening respiratory distress. On arrival patient is satting at 95% on 30L/min with increased work of breathing, coarse breath sounds in lung [place] and inability to complete full sentence. Based on history, exam and findings, presentation most consistent with moderate/severe covid PNA requiring increasing oxygen supprot. Low suspicion for PNA, ACS, tamponade, CHF, aortic dissection. EKG: No signs of STEMI and no evidence of Brugada?s sign, delta wave, epsilon wave, significantly prolonged QTc, or malignant arrhythmia as source of exacerbation. Workup today: ECG, CBC, BMP, Troponin, BNP, CXR, ABG, lactic acid, blood culture Intervention: Tylenol 1gram, PO challenge, serial reassessment, oxygen, remdesivir Patient has an allergy to steriods and declined decadron. He has significant allergies to contrast including throat swelling. Decision was made to defer CTA for evaluation of blood clots to the hospitalist team [6:31pm] On reassessment at [time], the patient continues to be in moderate respiratory distress requiring high flow at 30L/50%. HDS, AAOx3 and mentating without issues. The patient is now more comfortable on high flow compared to prior without any signs of increasing fatigue. At this point, a decision was made to admit patient to the stepdown for close observation. Patient agrees with plan. Patient received pain dose ketamine (0.3mg/kg) and morphine for pain. P atient also receive 2 mg of Ativan for anxiety. Disposition: Admission for serial observation Lab Data : 08/20/21 18:47 08/20/21 18:47 Radiology Impressions Chest X-Ray 08/20/21 17:28 IMPRESSION: Moderate severity bilateral lung disease. Commonly reported imaging features of COVID-19 pneumonia are present. Other processes such as influenza pneumonia and organizing pneumonia (as can be seen with drug toxicity and connective tissue disease), can produce a similar imaging pattern. ADDENDUM: 08/20/21 1809 Findings are increased since the prior chest radiograph on 08/16/2021. Laboratory Results WBC 11.5 10^3/uL (4.0-10.0) H 08/20/21 18:47 RBC 4.01 10^6/uL (4.1-5.3) L 08/20/21 18:47 Hgb 11.5 g/dL (11.5-15.3) 08/20/21 18:47 Hct 36.8 % (37.0-47.0) L 08/20/21 18:47 MCV 91.8 fl (81-99) 08/20/21 18:47 MCH 28.7 pg (28.0-34.0) 08/20/21 18:47 MCHC 31.3 g/dL (30.0-36.0) 08/20/21 18:47 RDW 13.8 % (12.1-15.1) 08/20/21 18:47 Plt Count 397 10^3/cmm (130-400) 08/20/21 18:47 MPV 10.4 fL (7.4-10.4) 08/20/21 18:47 Neut % (Auto) 88.5 % 08/20/21 18:47 Lymph % (Auto) 6.6 % 08/20/21 18:47 Caroline % (Auto) 3.0 % 08/20/21 18:47 Eos % (Auto) 0.0 % 08/20/21 18:47 Baso % (Auto) 0.1 % 08/20/21 18:47 Neut # (Auto) 10.17 10^3/uL (1.8-7.7) H 08/20/21 18:47 Lymph # (Auto) 0.8 10^3/uL (0.8-4.8) 08/20/21 18:47 Caroline # (Auto) 0.3 10^3/uL (0.2-0.9) 08/20/21 18:47 Eos # (Auto) 0.0 10^3/uL (0.0-0.8) 08/20/21 18:47 Baso # (Auto) 0.0 10^3/uL (0.0-0.1) 08/20/21 18:47 Nucleated RBC % (auto) 0.2 % 08/20/21 18:47 Nucleated RBCs # 0.0 /100WBC 08/20/21 18:47 PT 14.40 SECONDS (12.1-14.9) 08/20/21 18:47 INR 1.09 (0.8-1.2) 08/20/21 18:47 Imaging Data Other Imaging: Radiologist's impression: [address] [address] XRay Report Signed with Addenda Patient: Lea Lau Unit #: [id number] : 1955 Age/Sex: 66 / F ADM Date: 08/20/21 Loc: ER Room/Bed: Attending Dr: Ordering Provider/Ordering MD: Janet De La Cruz MD Date of Service: 08/20/21 Procedure(s): XR chest 1V portable [id number] Accession Number(s): [id number] Report Number: [id number] ADDENDUM XR/XR chest 1V portable [id number] Findings are increased since the prior chest radiograph on 08/16/2021. ? Addendum Dictated By: ?Husam Sam MD Addendum Signed By: ?Husam Sam MD Signed Date/Time: 08/20/211808 Addendum Cosigned By: ? PROCEDURE INFORMATION: Exam: XR Chest Exam date and time: 08/20/2021 5:28 PM Age: 66 years old Clinical indication: Cough; Additional info: Covid TECHNIQUE: Imaging protocol: XR of the chest. Views: 1 view. COMPARISON: CR (CHEST, ) 08/16/2021 8:00 PM FINDINGS: Lungs: Moderate severity bilateral patchy ground-glass opacities. Pleural spaces: There is no pleural effusion or pneumothorax. Heart/Mediastinum: Cardiomediastinal contours are unremarkable. Bones/joints: Bones are unremarkable. XR/XR chest 1V portable [id number] IMPRESSION: Moderate severity bilateral lung disease. Commonly reported imaging features of COVID-19 pneumonia are present. Other processes such as influenza pneumonia and organizing pneumonia (as can be seen with drug toxicity and connective tissue disease), can produce a similar imaging pattern. ? Dictated By: Husam Sam MD Signed By: Husam Sam MD Signed Date/Time: 08/20/211808 DD/ 27 Discharge Plan Discharge Patient Disposition: Admitted As Inpatient Clinical Impression: 2019 novel coronavirus-infected pneumonia (NCIP), Acute hypoxemic respiratory failure, Acute dyspnea Condition: Stable Coding Level of Care Code ED Kiln Transfer Operator for Chg Fwd Exam Comprehensive
[2021-08-20] MEDS: acetaminophen 500 mg Tablet 1000 MG PO (18:39)
[2021-08-20] MEDS: sodium chloride 0.9% 1,000 ML 999 ML IV (18:44)
[2021-08-20] MEDS: LORazepam 2 mg/mL INJ 1 mL IVP (18:47)
[2021-08-20] MEDS: morphine 4 mg/mL SDV 1 mL 2 MG IVP ×2 (18:51→22:36)
[2021-08-20] MEDS: diphenhydrAMINE 50 mg/mL SDV 1mL IVP (18:54)
[2021-08-20 18:57] LABS: Basophils % 0.1 %; Hematocrit 36.8 % (37.0-47.0); Hemoglobin 11.5 g/dL (11.5-15.3); Lymphocytes # 0.8 10^3/uL (0.8-4.8); Lymphocytes % 6.6 %; Mean Corpuscular HGB Conc 31.3 g/dL (30.0-36.0); Mean Corpuscular Hemoglobin 28.7 pg (28.0-34.0); Mean Corpuscular Volume 91.8 fl (81-99); Mean Platelet Volume 10.4 fL (7.4-10.4); Monocytes # 0.3 10^3/uL (0.2-0.9); Neutrophils # 10.17 10^3/uL (1.8-7.7); Neutrophils % 88.5 %; Nucleated Red Blood Cells % 0.2 %; Platelet Count 397 10^3/cmm (130-400); Red Blood Count 4.01 10^6/uL (4.1-5.3); Red Cell Distribution Width 13.8 % (12.1-15.1); White Blood Count 11.5 10^3/uL (4.0-10.0)
[2021-08-20 19:10] LABS: Fibrinogen 690 mg/dL (174-498); INR 1.09 (0.8-1.2); Partial Thromboplastin Time 26.5 SECONDS (23.9-36.7)
[2021-08-20 19:14] LABS: D Dimer 0.88 ug/mIFEU (0-0.59); Lactic Sepsis W/Reflex 3.1 mmol/L (0.5-2.2)
[2021-08-20 19:29] LABS: Troponin(5th) Baseline 10 ng/L (0-10)
--- NOTE | 2021-08-20 19:29 | ECG_ITS ---
[facility] Test Date: 2021-08-20 Pat Name: Lea Lau Department: Room: Gender: Female [place] Machine Operator: : 1955 Requested By: Janet De La Cruz Order Number: [id number] Leonid MD: Yudith Martinez M.D. Measurements Intervals [place] Rate: 89 P: 29 WI: 147 QRS: 28 QRSD: 93 T: 15 QT: 355 QTc: 433 Interpretive Statements SINUS RHYTHM Compared to ECG 08/20/2021 18:05:28 No significant changes Electronically Signed On 08-20-2021 19:30:07 ETL ANALYST by Yudith Martinez M.D. [id number]
[2021-08-20 19:42] LABS: Alanine Aminotransferase 29 U/L (0-33); Albumin Level 3.8 g/dL (3.5-5.2); Alkaline Phosphatase 100 IU/L (35-105); Anion Gap 23.4 (5-19); Aspartate Amino Transferase 29 U/L (0-32); Blood Urea Nitrogen 56 mg/dL (8-23); C Reactive Protein 140.6 mg/L (0.0-4.9); Calcium 9.7 mg/dL (8.5-10.5); Carbon Dioxide 17 mmol/L (22-29); Chloride 100 mmol/L (98-107); Creatine Phosphokinase 29 U/L (26-192); Globulin 2.6 g/dL (1.3-4.6); Glomerular Filtration Rate 22.4 mL/min (90-130); Glucose 259 mg/dL (65-115); Lactate Dehydrogenase 390 U/L (135-214); Magnesium 2.3 mg/dL (1.7-2.3); Osmolality Calculated 304 mOsm/kg (285-295); Potassium 5.4 mmol/L (3.5-5.1); Sodium 135 mmol/L (136-145); Total Bilirubin 0.4 mg/dL (0.15-1.2); Total Protein 6.4 g/dL (6.6-8.7)
--- NOTE | 2021-08-20 19:51 | PM.HP ---
Providers/Chief Complaint Admitting Physician: Vahe Cordero MD Primary Care Provider: Radha Agustin MD Chief Complaint: COVID +/ RESPIRATORY DISTRESS History of Present Illness Lea Lau is a 66 year old female with a past medical history of breast cancer and ovarian cancer, lupus, morbid obesity, FREDERICK, history of asthma, hypertension, dyslipidemia, history of SVT who presents [facility] for shortness of breath, diarrhea, nausea, cough, fevers. Currently patient is alert to person, to place, not to time, she does not know who the president is, nor does she know the month, or the date, she does have episodes of confusion, she keeps reaching for something in front of her which is not there, easily redirectable, she is breathing 20-30 times a minute, no intercostal subcostal retractions, currently on heated high flow, no ABG was obtained due to anxiety, she was also given ketamine in the ER for anxiety. She tested positive for COVID she tells me on Wednesday, she has not been vaccinated for COVID, has not received flu vaccine, since then she is experienced increased shortness of breath with exertion and at rest, cough, diarrhea, mouth sores, nausea, poor appetite. Denies any cardiovascular history. No history of strokes. Does have prior history of smoking but has not smoked in many years, has a history of asthma. She is not sure when her last fever was. In the emergency room she was found to have acute hypoxic respiratory failure, placed on heated high flow, acute renal failure with creatinine of 2.2, lactic acid elevated at 3.1, D-dimer 0.88. Review of Systems Const: Reports: fever(s), chills, body aches and fatigue; Denies: malaise Eyes: Denies: change in vision or blurry vision ENMT: Denies: nasal congestion Card: Denies: chest pain, palpitations, irregular heart rhythm or edema Resp: Reports: dyspnea and non-productive cough; Denies: productive cough or wheezing GI: Reports: abdominal pain, nausea and diarrhea; Denies: vomiting, hematemesis, constipation, hematochezia or melena : Denies: flank pain, dysuria or urinary frequency Musc: Denies: neck pain or back pain Skin/Breast: Denies: rash Neuro: Denies: headache(s), dizziness or vertigo Psych: Reports: anxiety Endo: Denies: polyuria or polydipsia Medications/Allergies Home Medications Medication Instructions Recorded Confirmed Last Taken Type cetirizine 10 mg capsule (Zyrtec) 10 mg PO DAILY 09/01/19 08/20/21 08/19/21 History cholecalciferol (vitamin D3) 100 4,000 unit PO DAILY 09/01/19 08/20/21 08/19/21 History mcg (4,000 unit) capsule epinephrine 0.3 mg/0.3 mL 0.3 mg IM Q10M PRN 09/01/19 08/20/21 Unknown History injection, auto-injector hydroxyzine HCl 25 mg tablet 25 mg PO TID PRN 09/01/19 08/20/21 07/01/20 09:30 History lidocaine 5 % topical patch 1 patch TOPICAL DAILY 09/01/19 08/20/21 Unknown History miconazole nitrate 2 % topical 1 applic TOPICAL DAILY 09/01/19 08/20/21 Unknown History powder montelukast 10 mg tablet 10 mg PO DAILY 09/01/19 08/20/21 08/18/21 History (Singulair) polyvinyl alcohol 1.4 % eye drops 1 drop OPHTHALMIC (EYE) Q4H PRN 09/01/19 08/20/21 Unknown History triamterene 75 1 tab PO BID tab 04/25/20 08/20/21 08/19/21 History mg-hydrochlorothiazide 50 mg tablet (Maxzide) [facility] BRACE #2 ea NS 07/22/20 08/20/21 Unknown Rx omeprazole 20 mg capsule,delayed 20 mg PO DAILY 07/22/20 08/20/21 08/20/21 History release verapamil 180 mg 24 hr 180 mg PO DAILY 90 Days #90 cap 08/05/20 08/20/21 08/18/21 Rx capsule,extended release albuterol sulfate 2.5 mg INHALATION Q4H PRN 12/10/20 08/20/21 08/20/21 History albuterol sulfate 90 mcg/actuation 2 puff INHALATION Q6H PRN 12/10/20 08/20/21 08/20/21 History aerosol inhaler (ProAir HFA) aspirin 81 mg tablet,delayed 81 mg PO DAILY 01/14/21 08/20/21 08/19/21 History release (Adult Aspirin Regimen) fluoxetine 20 mg capsule (Prozac) 20 mg PO DAILY 01/27/21 08/20/21 08/19/21 History Night Splint to the left #1 ea 05/13/21 08/20/21 Unknown Rx fluticasone 250 mcg-salmeterol 50 1 inh INHALATION BID #60 ea 07/02/21 08/20/21 08/19/21 Rx mcg/dose blistr powdr for inhalation (Wixela Inhub) dexamethasone 6 mg tablet 6 mg PO DAILY #10 tab 08/16/21 08/20/21 08/20/21 Rx (Decadron) ondansetron 4 mg disintegrating 4 mg PO Q8H PRN 5 Days #15 tab 08/16/21 08/20/21 Unknown Rx tablet Allergies Allergy/AdvReac Type Severity Reaction Status Date / Time amoxicillin Allergy rash Verified 07/07/21 14:35 azithromycin Allergy rash Verified 07/07/21 14:35 cephalexin [From Keflex] Allergy Unknown Verified 07/07/21 14:35 Cephalosporins Allergy rash Verified 07/07/21 14:35 clindamycin Allergy rash Verified 07/07/21 14:35 doxycycline Allergy rash Verified 07/07/21 14:35 Iodinated Contrast Media Allergy rash Verified 07/07/21 14:35 levofloxacin [From Levaquin] Allergy rash Verified 07/07/21 14:35 methylprednisolone Allergy rash Verified 07/07/21 14:35 [From Solu-Medrol] Penicillins Allergy rash Verified 07/07/21 14:35 Sulfa (Sulfonamide Allergy rash Verified 07/07/21 14:35 Antibiotics) sulfamethoxazole Allergy rash Verified 07/07/21 14:35 [From Bactrim] trimethoprim [From Bactrim] Allergy rash Verified 07/07/21 14:35 PFSH Acute PFSH: Medical History Asthma Benign essential HTN Bursitis COVID-19 Dyslipidemia History of breast cancer Hx of ovarian cancer Hyperlipidemia Hypertension Lupus Near syncope Obesity Osteoarthritis Ovarian cancer SVT (supraventricular tachycardia) Surgical History H/O lumpectomy H/O oophorectomy History of cataract extraction History of tonsillectomy and adenoidectomy Hx of section Hx of cholecystectomy Hx of umbilical hernia repair Family History Daughter Anesthesia complication Father CAD (coronary artery disease) Dementia Stroke Grandmother Cancer Grandfather Cancer Brother Lung disease Mother Suicide Sister Suicide Other Hyperlipidemia Hypertension Denies family history of Rheumatoid arthritis Diabetes Lupus Clotting disorder Chronic kidney disease (CKD) Bleeding disorder Social History Quit status (tobacco): has quit using tobacco Year quit tobacco: 2004 Former quit date comment: [id number] Second hand smoke exposure: No Smoking risk assessment/counseling performed?: Yes Alcohol intake: current Alcohol intake frequency: holidays/special occasions only Lives independently: Yes Household members: spouse Marital status: service: Yes Current occupational status: disabled Pets and animals: Yes History of recent travel: No Current gender identity: Female Vitals/I&O/Wt Last Vital Signs Pulse 87 08/20/21 17:58 Resp 28 H 08/20/21 18:51 BP 146/53 08/20/21 17:31 Pulse Ox 94 08/20/21 18:51 08/20/21 08/20/21 08/20/21 06:59 14:59 22:59 Intake Total 1000 / 1000 Balance 1000 / 1000 Weight last 48 hrs Weight 122.47 kg Physical Exam Const: COMMON NORMALS: no acute distress EXAM LIMITATIONS: altered mental status GENERAL APPEARANCE: cooperative, well kempt and well developed ORIENTATION/CONSCIOUSNESS: Yes awake, Yes oriented to person, Yes oriented to place and Yes confused; not oriented to time HENMT: COMMON NORMALS: normocephalic and Normal external nose present HEAD & SCALP: normocephalic FACE & SINUS: normal facial exam NOSE: Normal external nose present THROAT: posterior oropharynx normal Eye: COMMON NORMALS: Equal, round and reactive pupils present and EOMs intact bilaterally CONJUNCTIVA: Yes conjunctivae normal PUPIL: Yes Equal, round and reactive pupils present Neck/C-Spine: COMMON NORMALS: full ROM, no lymphadenopathy, Thyroid normal and No carotid bruits THYROID: Thyroid normal Lymph: LYMPHATIC: no lymphadenopathy noted Chest: COMMONS NORMALS: normal inspection of the chest Resp: COMMON NORMALS: No retractions and No use of accessory muscles EFFORT & INSPECTION: Yes tachypneic AUSCULTATION: diminished lung sounds diffuse Cardio: COMMON NORMALS: regular rate, regular rhythm, S1 normal heart sound present, S2 normal heart sound present, No murmurs present (Cardio) and Peripheral pulses 2+ throughout RATE: regular rate RHYTHM: regular rhythm HEART SOUNDS: S1 normal heart sound present and S2 normal heart sound present PERIPHERAL PULSES: Peripheral pulses 2+ throughout GI: COMMON NORMALS: Normal to inspection, nondistended, normoactive bowel sounds present, Soft to palpation, non-tender and No hepatosplenomegaly present PALPATION: Yes Soft to palpation and Yes No hepatosplenomegaly present : COMMON NORMALS: Yes no CVA tenderness BLADDER/KIDNEY EXAM: Yes no CVA tenderness Back/Pelvis: COMMON NORMALS: no CVA tenderness Extremity: COMMON NORMALS: normal to inspection, full ROM, capillary refill normal, no calf tenderness and no pedal edema Neuro: COMMON NORMALS: moves all extremities, no focal motor deficits and no sensory deficits noted MENINGEAL SIGNS: Yes no meningeal signs Psych: COMMON NORMALS: cooperative and speech normal Skin: COMMON NORMALS: turgor normal and no jaundice GENERAL SKIN EXAM: turgor normal Data : 08/20/21 18:47 08/20/21 18:47 A&P Assessment and plan (1) Acute hypoxemic respiratory failure: Status: Acute (2) 2019 novel coronavirus-infected pneumonia (NCIP): Status: Acute (3) Acute renal failure: Status: Acute (4) Acute encephalopathy: Status: Acute Plan Acute hypoxic respiratory failure secondary to COVID-19 -Underlying asthma, history of smoking, no history of COVID vaccination, morbid obesity Plan -Currently evidence of tachypnea, encephalopathy, high flow oxygen requirements, concerning for rapid clinical deterioration related to COVID-19, admit to ICU -Managed in ICU, -Monitor respiratory status closely, monitor mentation -ABG ordered -BiPAP if needed -Does not qualify for remdesivir given GFR -We will give Actemra 1 dose -Decadron day 1 of 10, of note has been taking p.o. Decadron at home -Vancomycin for antibiotic coverage, Primaxin for antibiotic coverage, possible secondary bacterial pneumonia -Sputum cultures, blood cultures, urine bacterial antigens, MRSA PCR, flu pending -Elevated D-dimer 0.88, monitor D-dimers, can do CT angiogram and given creatinine, cannot do VQ scan, if D-dimer continues to elevate will switch over to therapeutic Lovenox, nonetheless will order venous ultrasound of bilateral lower extremities -Elevated blood sugars, order A1c, low-dose sliding scale -Elevated anion gap, elevated blood sugars, pH unknown, ketones pending, monitor for possible DKA or HHS, no history of diabetes -Vitamin C, vitamin D, zinc -Incentive spirometer flutter valve -Ipratropium, budesonide -High risk of intubation in the next 24 to 48 hours -Full code -Lovenox for DVT prophylaxis Acute encephalopathy secondary to COVID-19 pneumonia, UA pending, blood cultures pending, sputum cultures pending Acute renal failure, likely sec to COVID-19, gentle IV hydration, urine studies, hold nephrotoxic agents, patient is a high risk progression to acute tubular necrosis related to COVID-19 Elevated lactic acid 3.1, likely second to COVID-19, no hemodynamic compromise, monitor for now, IV hydration Attestations Medical Necessity Statement*: Patient requires hospitalization for acute hypoxic respiratory failure secondary COVID-19, acute encephalopathy, acute renal failure, requiring ICU admission, greater than 2 midnights Critical Care Time: 55 min Coding Level of Care Code Acute Phytochemistry Professor for Chg Fwd History Comprehensive Medical Decision Making High Complexity Diagnoses Acute hypoxemic respiratory failure J96.01 2019 novel coronavirus-infected pneumonia (NCIP) U07.1; J12.82 Acute renal failure N17.9 Acute encephalopathy G93.40 Time Spent (min) 55
[2021-08-20 19:55] LABS: Ferritin 1417 ng/mL (15-150)
[2021-08-20 20:05] LABS: ABG PCO2 29.6 mmHg (35-45); ABG PH Result 7.41 (7.35-7.45); Arterial Blood Gas Hematocrit 34.2 % (37-47); Blood Gas Allen Test Pos; Blood Gas Sample Site Radial, right; Blood Gas Sample Type Arterial; HCO3 ABG 18.7 mmol/L (22-26); PO2 ABG 67.5 mmHg (80.0-100.0)
[2021-08-20 20:40] LABS: Reflex Lactate Order REFLEX LACTIC ORDERD
[2021-08-20 21:12] LABS: Glucose Point of Care 286 mg/dL (70-110)
[2021-08-20 21:27] LABS: Chol HDL Ratio 5.97 mg/dL (0.0-4.40); Cholesterol 227 mg/dL (0-200); HDL Cholesterol 38 mg/dL (60-100); Thyroid Stimulating Hormone 0.17 uIU/mL (0.27-4.20); Triglycerides 438 mg/dL (0-150)
--- NOTE | 2021-08-20 21:29 | PC.PHAR ---
Pharmacokinetic dosing service Date: 08/20/21 Time: 2129 Objective: Patient: Lea Lau Floor: ICU-6 Age: 66 yo Serum creatinine: 2.2 mg/dL Height: 64.0 Inches Weight (kg): 122.47 Diagnosis: Relevant medical/social history: Cultures and sensitivities: Other labs: Assessment: IBW (kg): 54.70 Dosing wt(kg): 122.47 Estimated Creatinine clearance (ml/min): 22.0 CRCL method: Cockcroft and Gault using ibw(default). Drug selected: Vancomycin Loading dose (mg): 0 Vd (liters): 110.2 (factor used: 0.9 L/kg) Ron (hr-1): 0.023 Half life (hrs): 30.14 Recommended dose: 1500 mg Interval: 24 hrs Infusion time (hrs): 1.5 Predicted peak (mcg/mL): 31.5 Predicted trough (mcg/mL): 18.77 Total body weight is being used for vancomycin dosing. Renal function is stable [ ] /unstable [ ] Recommendations: Give Vancomycin 1500 mg q 24 hrs with an expected Cpeak of 31.5 mcg/ml and an expected Ctrough of 18.77 mcg/ml Renal dosing of other antibiotics (review renal dosing of other medications and list guidelines here): Thank you for the consult, will continue to follow. Signature: Luciana Mcnulty [facility]
--- NOTE | 2021-08-20 21:30 | PC.NURSE ---
Physician Communication Patient's blood sugar 286 when checked upon arrival. Patient's first dose of insulin to be gave in the morning; Dr. Cordero called and relayed blood sugar. Order received to give first dose of insulin per low sliding scale now. Order carried out per SEP. Additionally, patient had two diet orders and two maintenance fluid orders active at the same time. Dr. Cordero informed and orders received to D/C NS running at 100 mls/hr and to make patient diet a cardiac diet. Orders carried out per SEP.
[2021-08-20] MEDS: insulin lispro 100 unit/1 mL SUBCUT (21:35)
[2021-08-20 21:39] LABS: LDL Cholesterol Direct 97 mg/dL (0-100)
[2021-08-20] MEDS: dexamethasone 10 mg/mL INJ 6 MG IVP (21:42)
[2021-08-20] MEDS: enoxaparin 40 mg/0.4 mL Syringe SUBCUT (21:43)
[2021-08-20] MEDS: sodium chloride 0.9% 1,000 ML 50 ML IV (21:43)
[2021-08-20] MEDS: pantoprazole 40 mg SDV IVP (21:44)
[2021-08-20 21:47] LABS: Ketone (Acetest) Serum Negative (Negative)
[2021-08-20 21:51] LABS: Troponin 5 2HR 9.85 ng/L (0-10)
[2021-08-20 21:53] LABS: Troponin 5 2HR Delta -0.15 ABS# (0-10)
[2021-08-20 22:06] LABS: NT Pro B Type Natriuretic Pept 345 pg/mL (0-125); Procalcitonin 0.09 ng/mL (0-0.5)
[2021-08-20] MEDS: tocilizumab 800 MG in sodium chloride 0.9% (100 ml) 100 ML 100 MG IV (23:03)
[2021-08-20] MEDS: vancomycin 1,500 MG/300 ML PIGGYBACK 200 MG IV (23:04)
[2021-08-20 23:07] LABS: Estmated Average Glucose 146; Hemoglobin A1C 6.7 % (4.0-6.0)
--- NOTE | 2021-08-20 23:29 | ECG_ITS ---
[facility] Test Date: 2021-08-20 Pat Name: Lea Lau Department: Room: [facility] Gender: Female Director Furniture: : 1955 Requested By: Janet De La Cruz Order Number: [id number] Reading MD: MORA BROWER Measurements Intervals [place] Rate: 79 P: 38 MD: 157 QRS: 43 QRSD: 85 T: 38 QT: 362 QTc: 415 Interpretive Statements SINUS RHYTHM LOW QRS VOLTAGE IN PRECORDIAL LEADS [QRS DEFLECTION < 1.0 mV IN CHEST LEADS] Compared to ECG 08/20/2021 19:16:17 Low QRS voltage now present Electronically Signed On 08-21-2021 21:49:53 ERADICATOR by MORA BROWER [id number]
--- NOTE | 2021-08-20 23:30 | PC.NURSE ---
Family Update , Malachi, called and received update on patient status. Oxygen requirements, room number, medications administered, kidney function, and scans performed were topics discussed. verbalized understanding and stated no further questions.
--- NOTE | 2021-08-20 23:30 | PC.NURSE ---
Family Update , Malachi, called and received update on patient status. Room number, oxygen requirements, scans performed, kidney function, and medications administered were all topics discussed. verbalized understanding and stated no further questions.
[2021-08-20 23:35] LABS: Add Urine Microscopic? NO; Charge for UA Resulting for Rev
[2021-08-20 23:37] LABS: Bilirubin Urine Neg (Negative); Blood Urine Neg (Negative); Glucose Urine UA Norm (Normal); Ketones Urine Negative (Negative); Leukocyte Esterase Urine Negative (Negative); Nitrate Urine Negative (Negative); Protein Urine Neg (Negative); Specific Gravity, Urine 1.015 (1.005-1.030); Urine Appearance Clear (CLEAR); Urine Color Yellow (Yellow); Urobilinogen Urine Norm (Negative); pH Urine 6 (5-7)
[2021-08-20 23:46] LABS: Urine Creatinine 160 mg/dL (28-217); Urine Random Chloride 36 mmol/L
[2021-08-21] VITALS (61 sets, daily range): BP systolic 100–151; BP diastolic 44–80; PULSE 64–88; RESP 16–48; TEMP 36.6–37.1; O2SAT 82–97; BMI 45.9
[2021-08-21 00:08] LABS: Urine Random Sodium 10 mmol/L
[2021-08-21 00:09] LABS: Potassium, Radom Urine > 105 mmol/L
[2021-08-21 00:59] LABS: Basophils % 0.2 %; Hematocrit 34.6 % (37.0-47.0); Hemoglobin 10.2 g/dL (11.5-15.3); Lymphocytes # 0.8 10^3/uL (0.8-4.8); Lymphocytes % 9.1 %; Mean Corpuscular HGB Conc 29.5 g/dL (30.0-36.0); Mean Corpuscular Hemoglobin 28.6 pg (28.0-34.0); Mean Corpuscular Volume 96.9 fl (81-99); Mean Platelet Volume 10.3 fL (7.4-10.4); Monocytes # 0.3 10^3/uL (0.2-0.9); Monocytes % 3.1 %; Neutrophils # 7.81 10^3/uL (1.8-7.7); Neutrophils % 85.5 %; Nucleated Red Blood Cells % 0 %; Platelet Count 347 10^3/cmm (130-400); Red Blood Count 3.57 10^6/uL (4.1-5.3); Red Cell Distribution Width 14.1 % (12.1-15.1); White Blood Count 9.1 10^3/uL (4.0-10.0)
[2021-08-21 01:05] LABS: Eosinophil Urine No Eosinophils Seen; Urine Eosinophil Count 0 (0-0)
[2021-08-21 01:17] LABS: D Dimer 0.83 ug/mIFEU (0-0.59); Magnesium 2.4 mg/dL (1.7-2.3); Phosphorus 3.9 mg/dL (2.5-4.5)
--- NOTE | 2021-08-21 03:32 | PC.PHAR ---
Renal dosing for Primaxin decreased from 500mg q6h to 250mg q 6h due to crcl of 32
[2021-08-21] MEDS: morphine 4 mg/mL SDV 1 mL 2 MG IVP ×2 (03:35→12:27)
[2021-08-21] MEDS: ipratropium-albuterol 3 mL Neb INHALATION ×5 (04:17→20:19)
--- NOTE | 2021-08-21 05:30 | PC.NURSE ---
Cough Medicine Patient's cough causing slight decreases in oxygen saturation to 85% and causing pain. Dr. Cordero contacted and order received for Tessalon pearls 100 mg PO TID. Medication administered per SEP.
[2021-08-21] MEDS: benzonatate 100 mg Capsule PO (06:02)
[2021-08-21] MEDS: ondansetron 2 mg/ML SDV 2 mL 4 MG IVP ×2 (06:15→08:47)
--- NOTE | 2021-08-21 08:00 | PC.NURSE ---
Pt out of bed to chair. She had a panic attack while getting out of bed, hyperventilating. Deep breathing, and relaxatin techniques discussed.
[2021-08-21 08:39] LABS: Glucose Point of Care 243 mg/dL (70-110)
[2021-08-21] MEDS: insulin lispro 100 unit/1 mL SUBCUT ×2 (08:56→17:33)
[2021-08-21] MEDS: budesonide 0.5 mg/2 mL Neb INHALATION ×2 (08:57→20:19)
[2021-08-21] MEDS: fluoxetine 20 mg Capsule PO (08:58)
[2021-08-21] MEDS: zinc gluconate 50 mg Tablet PO (08:58)
[2021-08-21] MEDS: verapamil ER 180 mg Tablet PO (08:58)
[2021-08-21] MEDS: docusate sodium 100 mg Capsule PO ×2 (08:59→17:33)
[2021-08-21] MEDS: aspirin 81 mg EC Tablet PO (08:59)
[2021-08-21] MEDS: hyDROXYzine 25 mg Capsule PO ×2 (08:59→17:55)
[2021-08-21] MEDS: ascorbic acid 500 mg Tablet PO (08:59)
[2021-08-21] MEDS: montelukast sodium 10 mg Tablet PO (08:59)
[2021-08-21] MEDS: cholecalciferol (vitamin D3) 1,000 unit Tablet 4000 UNIT PO (09:05)
[2021-08-21 11:07] LABS: Alanine Aminotransferase 23 U/L (0-33); Albumin Level 3.1 g/dL (3.5-5.2); Alkaline Phosphatase 80 IU/L (35-105); Anion Gap 23.2 (5-19); Aspartate Amino Transferase 24 U/L (0-32); Blood Urea Nitrogen 51 mg/dL (8-23); Calcium 8.9 mg/dL (8.5-10.5); Carbon Dioxide 11 mmol/L (22-29); Chloride 106 mmol/L (98-107); Globulin 3.4 g/dL (1.3-4.6); Glucose 280 mg/dL (65-115); Iron 33 ug/dL (37-145); Osmolality Calculated 304 mOsm/kg (285-295); Percent Saturation 17.9 % (20-50); Potassium 5.2 mmol/L (3.5-5.1); Sodium 135 mmol/L (136-145); Total Bilirubin 0.2 mg/dL (0.15-1.2); Total Iron Binding Capacity 184 mcg/dl; Total Protein 6.5 g/dL (6.6-8.7); Unsaturated Iron Binding 151 ug/dL (112-347)
[2021-08-21 12:07] LABS: Glucose Point of Care 271 mg/dL (70-110)
[2021-08-21] MEDS: lidocaine 5% Patch 1 PATCH TOPICAL (12:29)
[2021-08-21] MEDS: ALPRAZolam 0.5 mg Tablet PO ×2 (12:57→21:14)
--- NOTE | 2021-08-21 13:05 | PC.NURSE ---
Pt insisted on getting back in bed, Staying up in a chair for better oxygenation, IS, flutter valve use encouraged. Pt remians adamant about going back to bed. Pt assist, 1 assist , to bed.
--- NOTE | 2021-08-21 14:46 | PC.NURSE ---
Malachi, called for updated. Discussed pt resting in bed, pain medications, O2 sats, etc.
[2021-08-21] MEDS: benzonatate 100 mg Capsule 200 MG PO ×2 (16:00→21:14)
--- NOTE | 2021-08-21 16:06 | PC.NURSE ---
Addendum entered by Vinita Ang RN 08/21/21 16:08: Informed RT of episode, RT , Anna stated that is the third time this afternoon. Original Note: O2 sats 89%, Pt resting in bed with eyes closed. HHF cannula on her forehead. Reapplied to her nose, sats immediately started increasing, she is at 87% at this moment.
--- NOTE | 2021-08-21 16:19 | PC.NURSE ---
HHF cannul back on her forehead, replaced in nostrils again. O2 sats at 86% at this itme.
--- NOTE | 2021-08-21 17:15 | PC.NURSE ---
Pt up to chair. She started panicking again pulled of her oxygen, said she was tied down , too much stuff. Her O2 sats dropped and she still needed coaxing to get the HHF cannula reapplied. Deep breathing. Slow breathing with pursed lips encouraged. Pt yelled at staff she was doing that. Therapeutic communication continued, pt started to calm and reduce her respirations. Her O2 sats improved.
[2021-08-21 17:30] LABS: Glucose Point of Care 229 mg/dL (70-110)
[2021-08-21] MEDS: ferrous gluconate 324 mg Tablet PO (17:33)
[2021-08-21] MEDS: sodium chloride 0.9% 1,000 ML 50 ML IV (17:33)
--- NOTE | 2021-08-21 17:36 | P.PN_ITS ---
Subjective Subjective: Admitted overnight. Sitting up in chair during examination. Asking to be going back in bed as soon as possible. States she is feeling very weak. With currently on 45 L 55% saturating 92%. Denies any nausea vomiting, headache. States appetite is poor. States feeling weak. States she has been dealing with anxiety for a long time Vitals/I&O/Wt Last Vital Signs Temp 97.8 F 08/21/21 12:00 Pulse 70 08/21/21 15:44 Resp 24 H 08/21/21 15:44 BP 133/77 08/21/21 14:00 Pulse Ox 90 08/21/21 15:44 08/21/21 08/21/21 08/21/21 06:59 14:59 22:59 Intake Total 1500 / 2720.000 1080 / 1080 991.667 / 2071.667 Output Total 700 / 710 Balance 800 / 2010.000 1080 / 1080 991.667 / 1.667 Weight last 48 hrs Weight 121.472 kg Weight 122.47 kg Physical Exam Const: COMMON NORMALS: no acute distress EXAM LIMITATIONS: altered mental status GENERAL APPEARANCE: cooperative, well kempt and well developed ORIENTATION/CONSCIOUSNESS: Yes awake, Yes oriented to person, Yes oriented to place and Yes confused; not oriented to time HENMT: COMMON NORMALS: normocephalic and Normal external nose present HEAD & SCALP: normocephalic FACE & SINUS: normal facial exam NOSE: Normal ex ternal nose present THROAT: posterior oropharynx normal Eye: COMMON NORMALS: Equal, round and reactive pupils present, EOMs intact bilaterally and conjunctivae normal CONJUNCTIVA: Yes conjunctivae normal PUPIL: Yes Equal, round and reactive pupils present Neck/C-Spine: COMMON NORMALS: full ROM, no lymphadenopathy, no meningeal signs, Thyroid normal and No carotid bruits THYROID: Thyroid normal Lymph: LYMPHATIC: no lymphadenopathy noted Chest: COMMONS NORMALS: normal inspection of the chest Resp: COMMON NORMALS: No retractions and No use of accessory muscles EFFORT & INSPECTION: Yes tachypneic AUSCULTATION: diminished lung sounds diffuse Cardio: COMMON NORMALS: regular rate, regular rhythm, S1 normal heart sound present, S2 normal heart sound present, No murmurs present (Cardio) and Peripheral pulses 2+ throughout RATE: regular rate RHYTHM: regular rhythm HEART SOUNDS: S1 normal heart sound present and S2 normal heart sound present PERIPHERAL PULSES: Peripheral pulses 2+ throughout GI: COMMON NORMALS: Normal to inspection, nondistended, normoactive bowel sounds present, Soft to palpation, non-tender and No hepatosplenomegaly present PALPATION: Yes Soft to palpation and Yes No hepatosplenomegaly present : COMMON NORMALS: Yes no CVA tenderness BLADDER/KIDNEY EXAM: Yes no CVA tenderness Back/Pelvis: COMMON NORMALS: no CVA tenderness Extremity: COMMON NORMALS: normal to inspection, full ROM, capillary refill normal, no calf tenderness and no pedal edema Neuro: COMMON NORMALS: moves all extremities, no focal motor deficits and no sensory deficits noted SENSORIUM/ORIENTATION: Yes oriented to person, Yes oriented to place and No oriented to time MENINGEAL SIGNS: Yes no meningeal signs Psych: COMMON NORMALS: cooperative and speech normal APPEARANCE: Yes well kempt SPEECH: Yes normal speech Skin: COMMON NORMALS: turgor normal and no jaundice GENERAL SKIN EXAM: turgor normal Urinary Catheter Management: Alva: Cath Placed During This Visit: yes Reason for Continuing Indwelling Catheter: Accurate Measurement of Urinary Output in Critically Ill Patients Urinary Catheter Date of Insertion: 08/20/21 Urinary Catheter Time of Insertion: 22:30 Data : 08/21/21 00:49 08/21/21 00:59 Micro: Microbiology 08/20/21 22:30 Bacterial Antigens - Final Urine Kidney 08/20/21 22:30 Legionella Urinary Antigen - Final Urine,Clean Catch 08/20/21 22:30 Bacterial Antigens - Final Urine,Clean Catch 08/20/21 20:21 Blood Culture - Preliminary Blood SPECIMEN COLLECTED 08/20/21 20:20 Blood Culture - Preliminary Blood SPECIMEN COLLECTED A&P Assessment and plan (1) Acute hypoxemic respiratory failure: Status: Acute (2) 2019 novel coronavirus-infected pneumonia (NCIP): Status: Acute (3) Acute encephalopathy: Status: Acute (4) Restrictive lung disease secondary to obesity: Status: Acute (5) FREDERICK (obstructive sleep apnea): Status: Acute (6) Acute kidney injury superimposed on CKD: Status: Acute Plan Hypoxia secondary to COVID-19 pneumonia: Moderate to severe disease. Oxygen supplementation keeping saturation over 88%. Received Actemra in the ER on 08/20. Dexamethasone 6 mg daily. As patient is on high oxygen supplementation even with acute kidney injury on CKD it was discussed that it might be more beneficial for her to be on remdesi vir while we continue to monitor renal functions. Patient verbalizes understanding and is agreeable. Continue remdesivir to finish a 5-day course. Vitamin C, zinc. DuoNeb every 4 hour, budesonide twice daily Pulmonary toilet with incentive spirometry flutter valve. Nystatin squish and swallow. We will monitor inflammatory markers including D-dimer, CRP every 48 hourly. D-dimer mildly elevated. Unfortunately cannot do CTA given DEIRDRE on CKD. Cannot do VQ scan. Lower limb Dopplers negative for DVT. For now continue with Lovenox at prophylactic dose. If D-dimer getting elevated will switch to full dose Lovenox. Sputum culture pending, procalcitonin, urine Legionella, bacterial antigen n egative. Blood cultures so far negative. Patient has been started on vancomycin and imipenem. Continue for now. Check MRSA swab. If negative will stop vancomycin. Given hypoxia will try to keep patient as negative as possible. Patient clinically dehydrated for now. For now continue with gentle hydration. Strict input output charting, daily weights. DEIRDRE on CKD: Creatinine 1.5-1.8. Currently 2. Most likely secondary to dehydration and COVID-19. Medical reconciliation done for nephrotoxic drugs. We will continue to monitor BMP daily. Hyperkalemia: Most likely in setting of CKD. D50 along with 10 units of insulin. Hypertension: Goal blood pressure less than 140/90 mmHg. Blood pressure at target. Continue with home dose of verapamil. Type II diabetes mellitus: Insulin sliding scale at mild dose protocol. A1c 6.7. Does not seem to be on any hypoglycemics at home. Acute encephalopathy Anxiety/PTSD: Continue with home dose of Celexa and hydroxyzine. Xanax 0.5 every 8 hours as needed. If needed can add Precedex drip. High anion gap metabolic acidosis: Most likely in setting of acute kidney injury on CKD. Gentle hydration as above. We will continue to monitor. CODE STATUS: Full code. Lovenox for DVT prophylaxis. Protonix for PUD prophylaxis. Guarded prognosis Attestations Medical Necessity Statement*: Requires further hospitalization for management of hypoxic respiratory failure secondary to COVID-19 pneumonia, restrictive lung disease, DEIRDRE on CKD Critical Care Time: The high probability of a clinically significant, sudden or life threatening deterioration of the patient's [pulm, renal] system(s) required my full and direct attention, intervention and personal management. The critical care time is as shown. 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
--- NOTE | 2021-08-21 19:17 | PC.NURSE ---
Unable to give Remdesivir, D50, and regular insulin because it is not loaded in [facility].
--- NOTE | 2021-08-21 19:31 | PC.NURSE ---
Shift Note Frequent safety and comfort rounds continue. Orders and/or nursing care completed as indicated. Patient monitored for response to intervention and treatment(s). Education provided includes Hydroxyzine, xanax, morphine, lidocaine patch, vitamins, deep breathing and IS/flutter valve use. Patient and/or patient service representative verbalized understanding of ongoing plan of care, condition and medications. Pt requires reinforcement on breathing and calming techniques. Her oxygen requirements increased this shift, She is now at 45 liters 60% on Heated high flow. She stated she used the IS and flutter valve, only time pt observed participating in this art of her care is when prodded to do so. She has been up to the chair twice, panic attacks ensued during the transfers, her O2 sats actually much improved after in chair. Urine out put adequate. Will continue to monitor.
[2021-08-21] MEDS: insulin regular-human 10 UNIT in SYRINGE 1 EACH IVP (19:39)
[2021-08-21] MEDS: remdesivir 200 MG in sodium chloride 0.9% (100 ml) 60 ML 100 MG IV (19:39)
[2021-08-21 19:57] LABS: Glucose Point of Care 229 mg/dL (70-110)
--- NOTE | 2021-08-21 19:59 | USCV_ITS ---
Lea Lau Age: 66 Gender: F : 1955 Exam Date: 08/21/2021 06:38 Ordering Phys: Vahe Cordero MD Technologist: Exam Location: [facility] [place]: DVT PROCEDURES: Venous duplex imaging was performed in bilateral lower extremities. The following venous structures were evaluated: common femoral vein, profunda vein, proximal portion of the greater saphenous vein, superficial femoral vein, and the popliteal vein. In addition, the posterior tibial and peroneal trunk were evaluated. Serial compression, augmentation maneuvers, and spectral Doppler flow evaluation were performed. FINDINGS: Normal 2-D Doppler and augmentation and compressibility throughout the lower extremity venous structures. Additional imaging through the proximal calf veins also reveals no thrombus. Limited evaluation of the greater saphenous vein is patent with no thrombus.. CONCLUSIONS No evidence of right lower extremity DVT. No evidence of left lower extremity DVT. Ashish Carranza MD (Electronically Signed) Final Date: 21 August 2021 09:46 S
[2021-08-21 20:28] LABS: Glucose Point of Care 264 mg/dL (70-110)
[2021-08-21] MEDS: dexamethasone 10 mg/mL INJ 6 MG IVP (21:14)
[2021-08-21] MEDS: nystatin 100,000 unit/mL UDC 5 mL 100000 UNIT PO (21:14)
[2021-08-21] MEDS: pantoprazole 40 mg SDV IVP (21:15)
[2021-08-21] MEDS: enoxaparin 40 mg/0.4 mL Syringe SUBCUT (21:15)
[2021-08-21] MEDS: vancomycin 1,500 MG/300 ML PIGGYBACK 200 MG IV (22:43)
--- NOTE | 2021-08-21 23:09 | PC.NURSE ---
Pt very anxious, breathing rapidly and moaning with every exhale. Pt assisted back to bed with HOB elevated at 30 degrees. Pt educated regarding IS use, deep breathing, coughing, proning, and relaxation techniques. Pt's updated on pt's condition via phone.
[2021-08-21 23:28] LABS: Influenza A by IFA Negative (Negative); Influenza B by IFA Negative (Negative)
[2021-08-22] VITALS (47 sets, daily range): BP systolic 108–133; BP diastolic 42–72; PULSE 50–83; RESP 19–46; TEMP 36.2–37.3; O2SAT 81–98
[2021-08-22] MEDS: ipratropium-albuterol 3 mL Neb INHALATION ×6 (00:34→20:34)
[2021-08-22] MEDS: LORazepam 2 mg/mL INJ 1 mL 1 MG IVP (00:42)
--- NOTE | 2021-08-22 01:07 | PC.NURSE ---
Pt refuses to rest on either side. Bed tilted to the right 8 degrees. Pt refuses to take deep breaths. Pt continues to take oxygen out of her nose frequently, and raises her voice at nursing staff when we remind her not to remove it.
--- NOTE | 2021-08-22 01:14 | PC.NURSE ---
1 out of 4 blood cultures positive for gram positive cocci in clusters. Pt currently on vancomycin.
[2021-08-22 02:38] LABS: Bacillus cereus group Not Detected (NOT DETECT); Bacillus subtillis group Not Detected (NOT DETECT); Corynebacterium Not Detected (NOT DETECT); Cutibacterium acnes (P.acnes) Not Detected (NOT DETECT); Enterococcus Not Detected (NOT DETECT); Enterococcus faecalis Not Detected (NOT DETECT); Enterococcus faecium Not Detected (NOT DETECT); Lactobacillus species Not Detected (NOT DETECT); Listeria Not Detected (NOT DETECT); Listeria monocytogenes Not Detected (NOT DETECT); Micrococcus Not Detected (NOT DETECT); Pan Candida Not Detected (NOT DETECT); Pan Gram-Negative Not Detected (NOT DETECT); Staphylococcus epidermidis Detected (NOT DETECT); Staphylococcus lugdunensis Not Detected (NOT DETECT); Staphylococcus species Detected (NOT DETECT); Streptococcus agalactiae Not Detected (NOT DETECT); Streptococcus anginosus group Not Detected (NOT DETECT); Streptococcus pneumoniae Not Detected (NOT DETECT); Streptococcus pyogenes Not Detected (NOT DETECT); Streptococcus species Not Detected (NOT DETECT); mecA Not Detected (NOT DETECT); mecC Not Detected (NOT DETECT)
--- NOTE | 2021-08-22 02:38 | PC.NURSE ---
Pt continues to refuse to use flutter valve while nursing is in the room, but tells me that she has been using the flutter valve hourly. Bed tilted to the left.
[2021-08-22 04:18] LABS: Basophils % 0.2 %; Hematocrit 32.3 % (37.0-47.0); Hemoglobin 10.1 g/dL (11.5-15.3); Lymphocytes # 1.3 10^3/uL (0.8-4.8); Lymphocytes % 11.1 %; Mean Corpuscular HGB Conc 31.3 g/dL (30.0-36.0); Mean Corpuscular Hemoglobin 29.3 pg (28.0-34.0); Mean Corpuscular Volume 93.6 fl (81-99); Monocytes # 0.5 10^3/uL (0.2-0.9); Neutrophils # 9.21 10^3/uL (1.8-7.7); Neutrophils % 80.7 %; Nucleated Red Blood Cells % 0 %; Platelet Count 461 10^3/cmm (130-400); Red Blood Count 3.45 10^6/uL (4.1-5.3); Red Cell Distribution Width 14.2 % (12.1-15.1); White Blood Count 11.4 10^3/uL (4.0-10.0)
[2021-08-22 04:25] LABS: D Dimer 0.91 ug/mIFEU (0-0.59)
--- NOTE | 2021-08-22 04:29 | PC.NURSE ---
Pt's neurological status changed after administration of Ativan. Pt does wake up to touch and name. After approximately 2 minutes, pt became coherent, and speech became appropriate. Pt A/O x4. Pt quickly fell back asleep. Despite being calm and sedated, pt's respiratory rate remains elevated.
[2021-08-22 04:30] LABS: Alanine Aminotransferase 24 U/L (0-33); Albumin Level 3.2 g/dL (3.5-5.2); Alkaline Phosphatase 98 IU/L (35-105); Anion Gap 18.7 (5-19); Aspartate Amino Transferase 31 U/L (0-32); Blood Urea Nitrogen 43 mg/dL (8-23); Calcium 8.2 mg/dL (8.5-10.5); Carbon Dioxide 19 mmol/L (22-29); Chloride 107 mmol/L (98-107); Glomerular Filtration Rate 26.5 mL/min (90-130); Glucose 209 mg/dL (65-115); Osmolality Calculated 307 mOsm/kg (285-295); Potassium 4.7 mmol/L (3.5-5.1); Sodium 140 mmol/L (136-145); Total Bilirubin 0.2 mg/dL (0.15-1.2); Total Protein 6.2 g/dL (6.6-8.7)
[2021-08-22 04:34] LABS: Procalcitonin 0.06 ng/mL (0-0.5)
[2021-08-22 04:48] LABS: C Reactive Protein 57.9 mg/L (0.0-4.9)
[2021-08-22 05:58] LABS: Base Excess ABG -4.8 mmol/L (-2.0-2.0); Blood Gas Allen Test Pos; Blood Gas Operator Identificat JB; Blood Gas Sample Site Radial, right; Blood Gas Sample Type Arterial; Oxygen Device HAG; Potassium Level - ABG 4.3 mmol/L (3.5-5.0)
[2021-08-22] MEDS: ferrous gluconate 324 mg Tablet PO (07:30)
[2021-08-22] MEDS: ALPRAZolam 0.5 mg Tablet PO (07:30)
[2021-08-22] MEDS: verapamil ER 180 mg Tablet PO (08:04)
[2021-08-22] MEDS: zinc gluconate 50 mg Tablet PO (08:04)
[2021-08-22] MEDS: aspirin 81 mg EC Tablet PO (08:05)
[2021-08-22] MEDS: montelukast sodium 10 mg Tablet PO (08:05)
[2021-08-22] MEDS: ascorbic acid 500 mg Tablet PO (08:05)
[2021-08-22] MEDS: fluoxetine 20 mg Capsule PO (08:05)
[2021-08-22] MEDS: nystatin 100,000 unit/mL UDC 5 mL 100000 UNIT PO ×2 (08:05→14:00)
[2021-08-22] MEDS: docusate sodium 100 mg Capsule PO (08:05)
[2021-08-22] MEDS: benzonatate 100 mg Capsule 200 MG PO (08:05)
[2021-08-22] MEDS: cholecalciferol (vitamin D3) 1,000 unit Tablet 4000 UNIT PO (08:05)
[2021-08-22] MEDS: lidocaine 5% Patch 1 PATCH TOPICAL (08:06)
[2021-08-22 08:22] LABS: Glucose Point of Care 162 mg/dL (70-110)
[2021-08-22] MEDS: insulin lispro 100 unit/1 mL SUBCUT ×4 (08:40→21:49)
[2021-08-22] MEDS: budesonide 0.5 mg/2 mL Neb INHALATION ×2 (08:58→20:34)
--- NOTE | 2021-08-22 09:23 | PC.NURSE ---
upon bedside sift report, patient was found to have removed nasal cannula and was saturating in the mid to low 70's. After reapplying NC, the patient quickly climbed to the high 80's. Nurse explained importance of leaving the cannula in, but the patient is resistant to do so. SHe is also very fidgety and anxious. Nurse administered PRN xanax and the patient became much less anxious and would be more compliant with lines/oxygen, but still slightly agitated. WHile more relaxed and compliant, her oxygen saturation is in the mid 90's.
[2021-08-22] MEDS: morphine 4 mg/mL SDV 1 mL 1 MG IVP (10:02)
[2021-08-22] MEDS: FUROsemide 10 mg/mL SDV 4mL 40 MG IVP ×2 (11:23→19:25)
[2021-08-22] MEDS: dexmedeTOMIDine 0.9 % NaCL 400 MCG/100 ML PREMIX 9.23 MCG IV ×2 (11:24→16:54)
[2021-08-22] MEDS: lidocaine 2% viscous 1.667 ML, diphenhydrAMINE oral liq 4.165 MG, aluminum-mag hydrox-s... MUCOUS MEM (12:14)
[2021-08-22] MEDS: morphine 4 mg/mL SDV 1 mL 2 MG IVP (12:19)
[2021-08-22 12:40] LABS: Glucose Point of Care 158 mg/dL (70-110)
[2021-08-22] MEDS: magnesium citrate Btl 296 mL 150 ML PO (12:51)
--- NOTE | 2021-08-22 14:00 | PC.NURSE ---
Despite starting precedex, and morphine PRN, patient's work of breathing continues to increase. Oxygen saturation is staying in the mid 80's while on 50L and 80% hi flow. NUrse alerted Dr keller and RT. Patient was placed on BIpap and Dr keller called the to discuss the possibility of intubation. BOth and patient are agreeable to intubation if necessary.
--- NOTE | 2021-08-22 16:44 | PC.NURSE ---
Patient has pulled off her bipap mask 3 times in the past 2 hours. When she does so, oxygen saturation drops to the mid 60's. WHen nurse asks patient why she removes it, she tells the nurse that she doesn't want to wear it, but is agreeable to putting it back on when nurse informs her of hypoxia and potential of intubation or without it. Nurse alerted Dr keller of situation and recieved 1:! sitter orders. No sitter is available at this time so nurse is stationing themselves outside of patient room. Plan to move patient closer to nurses station when a room is avialable, and will continue to try and get a sitter.
[2021-08-22] MEDS: remdesivir 100 MG in sodium chloride 0.9% (100 ml) 80 ML IV (17:47)
[2021-08-22 18:01] LABS: Glucose Point of Care 172 mg/dL (70-110)
--- NOTE | 2021-08-22 18:10 | PM.PN ---
Subjective Subjective: Seen multiple times during the day. Overnight patient's oxygen requirement has gone up. During the day patient had high work of breathing. Was having occasional confusion. Discussed in detail with patient and . Patient was agreeable for trial of BiPAP. Patient has remained on BiPAP with Precedex drip. Work of breathing has been stable. Patient is requiring up to 80 to 90% of FiO2 to maintain saturation in high 80s to mid 90s. Documented urine output of 1300 cc in last 24 hours. Vitals/I&O/Wt Last Vital Signs Temp 97.8 F 08/22/21 13:00 Pulse 61 08/22/21 16:07 Resp 34 H 08/22/21 16:01 BP 118/53 08/22/21 14:00 Pulse Ox 89 L 08/22/21 16:05 08/22/21 08/22/21 08/22/21 06:59 14:59 22:59 Intake Total 550 / 3341.667 340 / 340 50.765 / 390.765 Output Total 700 / 1350 835 / 835 1100 / 1935 Balance -150 / 1991.667 -495 / -495 -1049.235 / -1544.235 Weight last 48 hrs Weight 123.014 kg Weight 121.472 kg Physical Exam Const: COMMON NORMALS: apparent distress EXAM LIMITATIONS: altered mental status GENERAL APPEARANCE: cooperative, well kempt and well developed ORIENTATION/CONSCIOUSNESS: Yes awake, Yes oriented to person, Yes oriented to place and Yes confused (tired appearing); not oriented to time HENMT: COMMON NORMALS: normocephalic and Normal external nose present HEAD & SCALP: normocephalic FACE & SINUS: normal facial exam NOSE: Normal external nose present THROAT: posterior oropharynx normal Eye: COMMON NORMALS: Equal, round and reactive pupils present, EOMs intact bilaterally and conjunctivae normal CONJUNCTIVA: Yes conjunctivae normal PUPIL: Yes Equal, round and reactive pupils present Neck/C-Spine: COMMON NORMALS: full ROM, no lymphadenopathy, no meningeal signs, Thyroid normal and No carotid bruits THYROID: Thyroid normal Lymph: LYMPHATIC: no lymphadenopathy noted Chest: COMMONS NORMALS: normal inspection of the chest Resp: COMMON NORMALS: No retractions and No use of accessory muscles EFFORT & INSPECTION: Yes tachypneic AUSCULTATION: diminished lung sounds diffuse Cardio: COMMON NORMALS: regular rate, regular rhythm, S1 normal heart sound present, S2 normal heart sound present, No murmurs present (Cardio) and Peripheral pulses 2+ throughout RATE: regular rate RHYTHM: regular rhythm HEART SOUNDS: S1 normal heart sound present and S2 normal heart sound present PERIPHERAL PULSES: Peripheral pulses 2+ throughout GI: COMMON NORMALS: Normal to inspection, nondistended, normoactive bowel sounds present, Soft to palpation, non-tender and No hepatosplenomegaly present PALPATION: Yes Soft to palpation and Yes No hepatosplenomegaly present : COMMON NORMALS: Yes no CVA tenderness BLADDER/KIDNEY EXAM: Yes no CVA tenderness Back/Pelvis: COMMON NORMALS: no CVA tenderness Extremity: COMMON NORMALS: normal to inspection, full ROM, capillary refill normal, no calf tenderness and no pedal edema Neuro: COMMON NORMALS: moves all extremities, no focal motor deficits and no sensory deficits noted SENSORIUM/ORIENTATION: Yes oriented to person, Yes oriented to place and No oriented to time MENINGEAL SIGNS: Yes no meningeal signs Psych: COMMON NORMALS: cooperative and speech normal APPEARANCE: Yes well kempt SPEECH: Yes normal speech Skin: COMMON NORMALS: turgor normal and no jaundice GENERAL SKIN EXAM: turgor normal Urinary Catheter Management: Alva: Cath Placed During This Visit: yes Reason for Continuing Indwelling Catheter: Accurate Measurement of Urinary Output in Critically Ill Patients Urinary Catheter Date of Insertion: 08/20/21 Urinary Catheter Time of Insertion: 22:30 Data : 08/22/21 03:51 08/22/21 03:51 Micro: Microbiology 08/20/21 20:21 Blood Culture - Preliminary Blood Staphylococcus epidermidis 08/20/21 20:21 Blood Culture - Preliminary Blood Staphylococcus epidermidis 08/21/21 22:26 MRSA Culture - Final Nose 08/22/21 10:50 Blood Culture - Preliminary Blood SPECIMEN COLLECTED 08/22/21 11:11 Blood Culture - Preliminary Blood SPECIMEN COLLECTED 08/20/21 22:30 Bacterial Antigens - Final Urine Kidney A&P Assessment and plan (1) Bacteremia due to Staphylococcus epidermidis: Status: Acute (2) Acute respiratory distress syndrome (ARDS) due to 2019 novel coronavirus: Status: Acute (3) 2019 novel coronavirus-infected pneumonia (NCIP): Status: Acute (4) Acute encephalopathy: Status: Acute (5) Restrictive lung disease secondary to obesity: Status: Acute (6) FRDEERICK (obstructive sleep apnea): Status: Acute (7) Acute kidney injury superimposed on CKD: Status: Acute Plan Staphylococcal bacteremia: 4 out of 4 blood cultures from admission positive. Repeat blood cultures. Continue with vancomycin and imipenem. Will de-escalate antibiotics as per culture results. MRSA swab negative. ARDS secondary to COVID-19 pneumonia: Moderate to severe disease. Oxygen supplementation keeping saturation over 88%. BiPAP ventilation for now. Received Actemra in the ER on 08/20. Dexamethasone 6 mg daily. As patient is on high oxygen supplementation even with acute kidney injury on CKD it was discussed that it might be more beneficial for her to be on remdesivir while we continue to monitor renal functions. Patient verbalizes understanding and is agreeable. Continue remdesivir to finish a 5-day course. Vitamin C, zinc. DuoNeb every 4 hour, budesonide twice daily Pulmonary toilet with incentive spirometry flutter valve. Nystatin squish and swallow. Magic mouthwash. We will monitor inflammatory markers including D-dimer, CRP every 48 hourly. For now trending down. D-dimer mildly elevated. Unfortunately cannot do CTA given DEIRDRE on CKD. Cannot do VQ scan. Lower limb Dopplers negative for DVT. As patient's oxygen supplementation continues to go up we will switch to heparin drip. Will not do full dose Lovenox given high body weight. Given hypoxia will try to keep patient as negative as possible. IV Lasix 40 mg once. Alva catheter. Strict input output charting, daily weights. DEIRDRE on CKD: Creatinine 1.5-1.8. Down to baseline. Getting Lasix today because of ARDS Medical reconciliation done for nephrotoxic drugs. We will continue to monitor BMP daily. Hyperkalemia: Resolved. Hypertension: Goal blood pressure less than 140/90 mmHg. Blood pressure at target. Patient is on Precedex now. For now hold off any further verapamil. We will restart as per blood pressure and heart rate. Type II diabetes mellitus: Insulin sliding scale at mild dose protocol. A1c 6.7. Does not seem to be on any hypoglycemics at home. Acute encephalopathy most likely secondary to severe illness from possible sepsis, COVID-19, baseline anxiety and PTSD Anxiety/PTSD: Continue with home dose of Celexa and hydroxyzine. Xanax 0.5 every 8 hours as needed. Precedex drip. High anion gap metabolic acidosis: Most likely in setting of acute kidney injury on CKD. Gentle hydration as above. We will continue to monitor. CODE STATUS: Full code. Lovenox for DVT prophylaxis. Protonix for PUD prophylaxis. Guarded prognosis. Low threshold for intubation Goals of care discussion: Discussed in detail with patient's over the phone and with patient at bedside. We discussed that patient work her breathing is very high and there is high risk of patient tiring out. Discussed that patient is requiring high oxygen supplementation. Discussed that patient oxygen supplementation gets any worse she would need to be intubated. Patient verbalized understanding and is agreeable for intubation if needed. Attestations Medical Necessity Statement*: Requires further hospitalization for management of ARDS secondary COVID-19 pneumonia, Sotradecol bacteremia, DEIRDRE on CKD Critical Care Time: The high probability of a clinically significant, sudden or life threatening deterioration of the patient's [pulmonary, ID, renal system(s) required my full and direct attention, intervention and personal management. The critical care time is as shown. 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
--- NOTE | 2021-08-22 18:46 | PC.NURSE ---
Patient was moved form room 6 to room 7 so she can be more closely observed by staff. Patient is frequently taking Bipap mask off and desaturating. No sitter is available at this time.
--- NOTE | 2021-08-22 19:03 | PC.NURSE ---
Shift Summary: Patient was noncompiant with oxygen devices throughout the shift. Respositioning for comfort, attempting to adress pain, and providing anxiety medication was unable to calm patient. SHe had to be moved to a room closer to the nurses station for observation due to frequent removal of Bipap. TOtal urine output for shift is 2335mL and another 40Mg of lasix will be given shortly.
[2021-08-22] MEDS: heparin 5,000 unit/mL INJ 1 mL IV (19:30)
[2021-08-22] MEDS: heparin drip 25,000 UNIT/500 ML PREMIX 34.44 UNIT IV (19:30)
--- NOTE | 2021-08-22 20:39 | PC.NURSE ---
Precedex increased to 0.7 at 2019. Precedex was already at 0.6, but MAR reflected it to be at 0.3.
[2021-08-22] MEDS: dexamethasone 10 mg/mL INJ 6 MG IVP (21:35)
[2021-08-22] MEDS: pantoprazole 40 mg SDV IVP (21:35)
[2021-08-22 23:44] LABS: Glucose Point of Care 179 mg/dL (70-110)
[2021-08-23] VITALS (44 sets, daily range): BP systolic 112–158; BP diastolic 45–86; PULSE 45–82; RESP 12–39; TEMP 35.6–36.8; O2SAT 85–100
[2021-08-23] MEDS: ipratropium-albuterol 3 mL Neb INHALATION ×7 (00:11→23:12)
[2021-08-23 01:16] LABS: Vancomycin Trough 18.6 ug/mL (10-15)
[2021-08-23] MEDS: vancomycin 1,500 MG/300 ML PIGGYBACK 200 MG IV (01:25)
[2021-08-23 02:06] LABS: Basophils % 0.3 %; Eosinophils % 0.1 %; Hematocrit 36.5 % (37.0-47.0); Hemoglobin 11.6 g/dL (11.5-15.3); Lymphocytes # 1.4 10^3/uL (0.8-4.8); Lymphocytes % 12.8 %; Mean Corpuscular HGB Conc 31.8 g/dL (30.0-36.0); Mean Corpuscular Hemoglobin 28.6 pg (28.0-34.0); Mean Corpuscular Volume 89.9 fl (81-99); Mean Platelet Volume 9.8 fL (7.4-10.4); Monocytes # 0.3 10^3/uL (0.2-0.9); Monocytes % 2.7 %; Neutrophils # 8.64 10^3/uL (1.8-7.7); Neutrophils % 78.1 %; Nucleated Red Blood Cells # 0.1 /100WBC; Nucleated Red Blood Cells % 0.5 %; Platelet Count 481 10^3/cmm (130-400); Red Blood Count 4.06 10^6/uL (4.1-5.3); Red Cell Distribution Width 13.8 % (12.1-15.1); White Blood Count 11.1 10^3/uL (4.0-10.0)
[2021-08-23 02:30] LABS: Alanine Aminotransferase 26 U/L (0-33); Albumin Level 3.4 g/dL (3.5-5.2); Alkaline Phosphatase 99 IU/L (35-105); Anion Gap 16.7 (5-19); Aspartate Amino Transferase 34 U/L (0-32); Blood Urea Nitrogen 59 mg/dL (8-23); Calcium 9.5 mg/dL (8.5-10.5); Carbon Dioxide 22 mmol/L (22-29); Chloride 104 mmol/L (98-107); Globulin 3.7 g/dL (1.3-4.6); Glucose 136 mg/dL (65-115); Osmolality Calculated 307 mOsm/kg (285-295); Potassium 3.7 mmol/L (3.5-5.1); Sodium 139 mmol/L (136-145); Total Bilirubin 0.2 mg/dL (0.15-1.2); Total Protein 7.1 g/dL (6.6-8.7)
[2021-08-23 02:34] LABS: Slide Review Slide Review Perform
[2021-08-23 03:19] LABS: Partial Thromboplastin Time 176.7 SECONDS (23.9-36.7)
[2021-08-23 05:31] LABS: ABG PCO2 50.5 mmHg (35-45); ABG PH Result 7.31 (7.35-7.45); Alveolar-Arterial Oxygen Gradi 43.4 mmHg (5-10); Arterial Blood Gas Hematocrit 51.5 % (37-47); Blood Gas Allen Test Pos; Blood Gas Operator Identificat JB; Blood Gas Sample Site Radial, right; Blood Gas Sample Type Arterial; Carboxyhemoglobin 0.5 %THgb (0.4-20.1); HCO3 ABG 25.1 mmol/L (22-26); HGB O2 Sat 92.4 % (95-100); Ionized Calcium Level - ABG 1.3 mmol/L (1.1-1.4); Methemoglobin 0.6 % (0.4-1.5); Oxygen Device BIPAP; Oxygen Saturation ABG 93.3; PO2 ABG 72.5 mmHg (80.0-100.0); Potassium Level - ABG 3.9 mmol/L (3.5-5.0); Total Hemoglobin 16.8 g/dL (12-16)
[2021-08-23] MEDS: budesonide 0.5 mg/2 mL Neb INHALATION ×2 (08:44→20:16)
[2021-08-23] MEDS: fluoxetine 20 mg Capsule PO (09:13)
[2021-08-23] MEDS: zinc gluconate 50 mg Tablet PO (09:13)
[2021-08-23] MEDS: docusate sodium 100 mg Capsule PO (09:13)
[2021-08-23] MEDS: aspirin 81 mg EC Tablet PO (09:13)
[2021-08-23] MEDS: montelukast sodium 10 mg Tablet PO (09:13)
[2021-08-23] MEDS: benzonatate 100 mg Capsule 200 MG PO ×2 (09:13→17:03)
[2021-08-23] MEDS: nystatin 100,000 unit/mL UDC 5 mL 100000 UNIT PO ×3 (09:13→17:04)
[2021-08-23] MEDS: cholecalciferol (vitamin D3) 1,000 unit Tablet 4000 UNIT PO (09:14)
[2021-08-23] MEDS: ascorbic acid 500 mg Tablet PO (09:14)
[2021-08-23] MEDS: ferrous gluconate 324 mg Tablet PO ×2 (09:14→17:03)
[2021-08-23] MEDS: lidocaine 5% Patch 1 PATCH TOPICAL (09:14)
[2021-08-23 10:11] LABS: Glucose Point of Care 180 mg/dL (70-110)
[2021-08-23] MEDS: insulin lispro 100 unit/1 mL SUBCUT ×3 (10:14→17:27)
[2021-08-23 11:14] LABS: Partial Thromboplastin Time 26.7 SECONDS (23.9-36.7)
--- NOTE | 2021-08-23 12:41 | PC.SOCIAL ---
IMM Update pg 2 of IMM updated and reviewed w/ patient. Copy provided and copy placed in chart.
[2021-08-23] MEDS: FUROsemide 10 mg/mL SDV 4mL 40 MG IVP (12:46)
[2021-08-23 13:00] LABS: Glucose Point of Care 172 mg/dL (70-110)
--- NOTE | 2021-08-23 13:03 | PM.PN ---
Subjective Subjective: No acute events overnight. Patient has tolerated BiPAP well. Precedex drip was stopped because of bradycardia. Today morning on examination patient was on BiPAP 65% saturating 90 to 93%. She was transitioned over to heated high flow. Getting tachypneic on heated high flow. Turned up to 90% FiO2 saturating 91 to 92%. Documented urine output in last 24 hours 4.7 L. Overall stable 900 cc positive at admission. Vitals/I&O/Wt Last Vital Signs Temp 98.2 F 08/23/21 06:00 Pulse 56 L 08/23/21 11:51 Resp 36 H 08/23/21 11:51 BP 141/86 08/23/21 10:00 Pulse Ox 90 08/23/21 11:51 08/22/21 08/23/21 08/23/21 22:59 06:59 14:59 Intake Total 430.765 / 770.765 827.587 / 1598.352 100 / 100 Output Total 2575 / 3410 1350 / 4760 Balance -2144.235 / -2639.235 -522.413 / -3161.648 100 / 100 Weight last 48 hrs Weight 122.47 kg Weight 123.014 kg Physical Exam Const: COMMON NORMALS: apparent distress EXAM LIMITATIONS: altered mental status GENERAL APPEARANCE: cooperative, well kempt and well developed ORIENTATION/CONSCIOUSNESS: Yes awake, Yes oriented to person, Yes oriented to place and Yes confused (tired appearing); not oriented to time HENMT: COMMON NORMALS: normocephalic and Normal external nose present HEAD & SCALP: normocephalic FACE & SINUS: normal facial exam NOSE: Normal external nose present THROAT: posterior oropharynx normal Eye: COMMON NORMALS: Equal, round and reactive pupils present, EOMs intact bilaterally and conjunctivae normal CONJUNCTIVA: Yes conjunctivae normal PUPIL: Yes Equal, round and reactive pupils present Neck/C-Spine: COMMON NORMALS: full ROM, no lymphadenopathy, no meningeal signs, Thyroid normal and No carotid bruits THYROID: Thyroid normal Lymph: LYMPHATIC: no lymphadenopathy noted Chest: COMMONS NORMALS: normal inspection of the chest Resp: COMMON NORMALS: No retractions and No use of accessory muscles EFFORT & INSPECTION: Yes tachypneic AUSCULTATION: diminished lung sounds diffuse Cardio: COMMON NORMALS: regular rate, regular rhythm, S1 normal heart sound present, S2 normal heart sound present, No murmurs present (Cardio) and Peripheral pulses 2+ throughout RATE: regular rate RHYTHM: regular rhythm HEART SOUNDS: S1 normal heart sound present and S2 normal heart sound present PERIPHERAL PULSES: Peripheral pulses 2+ throughout GI: COMMON NORMALS: Normal to inspection, nondistended, normoactive bowel sounds present, Soft to palpation, non-tender and No hepatosplenomegaly present PALPATION: Yes Soft to palpation and Yes No hepatosplenomegaly present : COMMON NORMALS: Yes no CVA tenderness BLADDER/KIDNEY EXAM: Yes no CVA tenderness Back/Pelvis: COMMON NORMALS: no CVA tenderness Extremity: COMMON NORMALS: normal to inspection, full ROM, capillary refill normal, no calf tenderness and no pedal edema Neuro: COMMON NORMALS: moves all extremities, no focal motor deficits and no sensory deficits noted SENSORIUM/ORIENTATION: Yes oriented to person, Yes oriented to place and No oriented to time MENINGEAL SIGNS: Yes no meningeal signs Psych: COMMON NORMALS: cooperative and speech normal APPEARANCE: Yes well kempt SPEECH: Yes normal speech Skin: COMMON NORMALS: turgor normal and no jaundice GENERAL SKIN EXAM: turgor normal Urinary Catheter Management: Alva: Cath Placed During This Visit: yes Reason for Continuing Indwelling Catheter: Accurate Measurement of Urinary Output in Critically Ill Patients Urinary Catheter Date of Insertion: 08/20/21 Urinary Catheter Time of Insertion: 22:30 Data : 08/23/21 01:53 08/23/21 01:53 Micro: Microbiology 08/22/21 10:50 Blood Culture - Preliminary Blood NEGATIVE TO DATE 08/22/21 11:11 Blood Culture - Preliminary Blood NEGATIVE TO DATE 08/20/21 20:21 Blood Culture - Preliminary Blood Staphylococcus epidermidis 08/20/21 20:21 Blood Culture - Preliminary Blood Staphylococcus epidermidis 08/21/21 22:26 MRSA Culture - Final Nose A&P Assessment and plan (1) Bacteremia due to Staphylococcus epidermidis: Status: Acute (2) Acute respiratory distress syndrome (ARDS) due to 2019 novel coronavirus: Status: Acute (3) 2019 novel coronavirus-infected pneumonia (NCIP): Status: Acute (4) Acute encephalopathy: Status: Acute (5) Restrictive lung disease secondary to obesity: Status: Acute (6) FREDERICK (obstructive sleep apnea): Status: Acute (7) Acute kidney injury superimposed on CKD: Status: Acute Plan Staphylococcal bacteremia: 4 out of 4 blood cultures from admission positive. Repeat blood cultures from 08/22 so far negative. Awaiting sensitivities currently. Continue with vancomycin and imipenem. Will de-escalate antibiotics as per culture results. MRSA swab negative. ARDS secondary to COVID-19 pneumonia: Moderate to severe disease. Oxygen supplementation keeping saturation over 88%. Continue with heated high flow. If patient's rate of breathing increasing again can start on BiPAP. BiPAP nightly otherwise. Received Actemra in the ER on 08/20. Dexamethasone 6 mg daily. As patient is on high oxygen supplementation even with acute kidney injury on CKD it was discussed that it might be more beneficial for her to be on remdesivir while we continue to monitor renal functions. Patient verbalizes understanding and is agreeable. Continue remdesivir to finish a 5-day course. Renal function stable Vitamin C, zinc. DuoNeb every 4 hour, budesonide twice daily Pulmonary toilet with incentive spirometry flutter valve. Nystatin squish and swallow. Magic mouthwash. We will monitor inflammatory markers including D-dimer, CRP every 48 hourly. For now trending down. D-dimer mildly elevated. Unfortunately cannot do CTA given DEIRDRE on CKD. Cannot do VQ scan. Lower limb Dopplers negative for DVT. As patient's oxygen supplementation as high as 90% FiO2 with heated high flow for now we will continue with heparin drip. If D-dimer trending down and switch back to prophylactic dose Lovenox. Given hypoxia will try to keep patient as negative as possible. IV Lasix 40 mg once. Patient still overall 1 L positive. catheter. Strict input output charting, daily weights. DEIRDRE on CKD: Creatinine 1.5-1.8. Creatinine stable. Getting Lasix today because of ARDS Medical reconciliation done for nephrotoxic drugs. We will continue to monitor BMP daily. Hyperkalemia: Resolved. Hypertension: Goal blood pressure less than 140/90 mmHg. Blood pressure at target. Patient is on Precedex now. For now hold off any further verapamil. We will restart as per blood pressure and heart rate. Type II diabetes mellitus: Insulin sliding scale at mild dose protocol. A1c 6.7. Does not seem to be on any hypoglycemics at home. Acute encephalopathy most likely secondary to severe illness from possible sepsis, COVID-19, baseline anxiety and PTSD Anxiety/PTSD: Continue with home dose of Celexa and hydroxyzine. Xanax 0.5 every 8 hours as needed. Precedex drip. High anion gap metabolic acidosis: Most likely in setting of acute kidney injury on CKD. Gentle hydration as above. We will continue to monitor. CODE STATUS: Full code. Lovenox for DVT prophylaxis. Protonix for PUD prophylaxis. Guarded prognosis. Low threshold for intubation Switch to full liquid diet Plan for day: Switch back to heated high flow from BiPAP. Try BiPAP again if patient becomes tachypneic otherwise nightly. IV Lasix 40 mg. Follow-up blood cultures. For now continue with vancomycin and imipenem. Goals of care discussion: Discussed in detail with patient's over the phone and with patient at bedside. We discussed that patient work her breathing is very high and there is high risk of patient tiring out. Discussed that patient is requiring high oxygen supplementation. Discussed that patient oxygen supplementation gets any worse she would need to be intubated. Patient verbalized understanding and is agreeable for intubation if needed. Attestations Medical Necessity Statement*: Requires further hospitalization for management of ARDS secondary to COVID-19 pneumonia, staph bacteremia as patient is heated high flow to BiPAP dependent currently Critical Care Time: The high probability of a clinically significant, sudden or life threatening deterioration of the patient's [pulmonary, ID, cardiac system(s) required my full and direct attention, intervention and personal management. The critical care time is as shown. This time is in addition to time spent performing any reported procedures but includes the following: [x] Data and vital sign review and interpretation [x] Patient assessment, examination and intervention [x] Documentation [x] Medication orders and management Critical Care Time (min): 60 Coding Level of Care Code Acute Multimedia Programmer for [facility] Fwd Diagnoses Bacteremia due to Staphylococcus epidermidis R78.81; B95.7 Acute respiratory distress syndrome (ARDS) due to 2019 novel coronavirus U07.1; J80 2019 novel coronavirus-infected pneumonia (NCIP) U07.1; J12.82 Acute encephalopathy G93.40 Restrictive lung disease secondary to obesity J98.4; E66.9 FREDERICK (obstructive sleep apnea) G47.33 Acute kidney injury superimposed on CKD N17.9; N18.9
--- NOTE | 2021-08-23 13:27 | PC.NURSE ---
Heparin gtt, per Dr. Edward restarted at 34 ml/hr without bolus. Redraw in 6 hours per protocol.
[2021-08-23] MEDS: morphine 4 mg/mL SDV 1 mL 2 MG IVP ×2 (15:10→20:34)
[2021-08-23 17:16] LABS: Glucose Point of Care 181 mg/dL (70-110)
[2021-08-23] MEDS: remdesivir 100 MG in sodium chloride 0.9% (100 ml) 80 ML IV (17:27)
--- NOTE | 2021-08-23 18:41 | PC.NURSE ---
Self Proning Patient has been self proning most of afternoon and tolerating well, sats mid to high 90s on HHF 50L/80%, RR 20s.
[2021-08-23 19:37] LABS: Glucose Point of Care 108 mg/dL (70-110)
[2021-08-23 19:55] LABS: Partial Thromboplastin Time 119.1 SECONDS (23.9-36.7)
[2021-08-23] MEDS: pantoprazole 40 mg SDV IVP (20:33)
[2021-08-23] MEDS: heparin drip 25,000 UNIT/500 ML PREMIX 31 UNIT IV (20:33)
[2021-08-23] MEDS: dexamethasone 10 mg/mL INJ 6 MG IVP (20:34)
--- NOTE | 2021-08-23 21:28 | PC.NURSE ---
Malachi called for an update. He was informed pt was still proned on the heated high flow requiring 80% FiO2. informed pt attempted to turn on side and was not able to tolerate position change. stated he understood and all questions were answered
[2021-08-24] VITALS (40 sets, daily range): BP systolic 108–165; BP diastolic 53–81; PULSE 49–88; RESP 11–51; TEMP 36.2–37.1; O2SAT 75–97
[2021-08-24] MEDS: vancomycin 1,500 MG/300 ML PIGGYBACK 200 MG IV (01:30)
[2021-08-24 02:30] LABS: Basophils % 0.2 %; Eosinophils % 0.3 %; Hematocrit 33.1 % (37.0-47.0); Hemoglobin 10.6 g/dL (11.5-15.3); Lymphocytes # 1.3 10^3/uL (0.8-4.8); Lymphocytes % 11.5 %; Mean Corpuscular Hemoglobin 28.3 pg (28.0-34.0); Mean Corpuscular Volume 88.5 fl (81-99); Mean Platelet Volume 9.9 fL (7.4-10.4); Monocytes # 0.3 10^3/uL (0.2-0.9); Monocytes % 2.8 %; Neutrophils # 8.44 10^3/uL (1.8-7.7); Neutrophils % 77.5 %; Nucleated Red Blood Cells # 0.1 /100WBC; Nucleated Red Blood Cells % 0.6 %; Platelet Count 502 10^3/cmm (130-400); Red Blood Count 3.74 10^6/uL (4.1-5.3); Red Cell Distribution Width 13.6 % (12.1-15.1); White Blood Count 10.9 10^3/uL (4.0-10.0)
[2021-08-24 02:51] LABS: D Dimer 3.37 ug/mIFEU (0-0.59)
[2021-08-24 02:56] LABS: Alanine Aminotransferase 21 U/L (0-33); Albumin Level 3.2 g/dL (3.5-5.2); Alkaline Phosphatase 102 IU/L (35-105); Anion Gap 18.6 (5-19); Aspartate Amino Transferase 33 U/L (0-32); Blood Urea Nitrogen 57 mg/dL (8-23); C Reactive Protein 19.4 mg/L (0.0-4.9); Calcium 8.1 mg/dL (8.5-10.5); Carbon Dioxide 24 mmol/L (22-29); Chloride 99 mmol/L (98-107); Globulin 2.7 g/dL (1.3-4.6); Glomerular Filtration Rate 26.5 mL/min (90-130); Glucose 265 mg/dL (65-115); Osmolality Calculated 311 mOsm/kg (285-295); Potassium 3.6 mmol/L (3.5-5.1); Sodium 138 mmol/L (136-145); Total Bilirubin 0.3 mg/dL (0.15-1.2); Total Protein 5.9 g/dL (6.6-8.7)
[2021-08-24 03:01] LABS: Slide Review Slide Review Perform
[2021-08-24 03:02] LABS: Partial Thromboplastin Time 170.9 SECONDS (23.9-36.7)
[2021-08-24] MEDS: ipratropium-albuterol 3 mL Neb INHALATION ×6 (03:28→23:02)
[2021-08-24 07:29] LABS: Glucose Point of Care 187 mg/dL (70-110)
[2021-08-24] MEDS: cholecalciferol (vitamin D3) 1,000 unit Tablet 4000 UNIT PO (08:11)
[2021-08-24] MEDS: ferrous gluconate 324 mg Tablet PO ×2 (08:11→17:33)
[2021-08-24] MEDS: zinc gluconate 50 mg Tablet PO (08:11)
[2021-08-24 08:12] LABS: Partial Thromboplastin Time 39.3 SECONDS (23.9-36.7)
[2021-08-24] MEDS: montelukast sodium 10 mg Tablet PO (08:12)
[2021-08-24] MEDS: fluoxetine 20 mg Capsule PO (08:12)
[2021-08-24] MEDS: ascorbic acid 500 mg Tablet PO (08:12)
[2021-08-24] MEDS: nystatin 100,000 unit/mL UDC 5 mL 100000 UNIT PO ×4 (08:12→20:45)
[2021-08-24] MEDS: aspirin 81 mg EC Tablet PO (08:12)
[2021-08-24] MEDS: docusate sodium 100 mg Capsule PO ×2 (08:12→17:33)
[2021-08-24] MEDS: benzonatate 100 mg Capsule 200 MG PO ×3 (08:12→20:45)
[2021-08-24] MEDS: insulin lispro 100 unit/1 mL SUBCUT ×2 (08:13→11:46)
[2021-08-24] MEDS: lidocaine 5% Patch 1 PATCH TOPICAL (08:13)
[2021-08-24] MEDS: budesonide 0.5 mg/2 mL Neb INHALATION ×2 (08:28→19:58)
[2021-08-24] MEDS: ALPRAZolam 0.5 mg Tablet PO ×2 (11:13→19:45)
[2021-08-24 11:24] LABS: Glucose Point of Care 161 mg/dL (70-110)
[2021-08-24] MEDS: acetaminophen 325 mg Tablet 650 MG PO (11:46)
[2021-08-24] MEDS: FUROsemide 10 mg/mL SDV 4mL 40 MG IVP (11:56)
[2021-08-24] MEDS: morphine 4 mg/mL SDV 1 mL 2 MG IVP (14:31)
[2021-08-24] MEDS: HYDROcodone-acetaminophen 5-325 mg Tablet 1 TAB PO ×2 (14:59→20:56)
[2021-08-24] MEDS: cetylpyridinium Lozenge 1 EACH MUCOUS MEM (14:59)
--- NOTE | 2021-08-24 17:06 | PM.PN ---
Subjective Subjective: No acute events overnight. Today morning on examination patient sitting in chair. She remains on 50 L 80%. Continues to remain nonmotivated for I-S and Acapella. Wants to rest as much as possible. Did prone yesterday for around 2 hours when her saturations were up in high 90s. Currently saturating 90 to 91%. Has been on Precedex on and off. Work of breathing have decreased than before. Urine output of 2.5 L in last 24 hours. Has remained hemodynamically stable and afebrile. Vitals/I&O/Wt Last Vital Signs Temp 98.8 F 08/24/21 15:00 Pulse 68 08/24/21 16:00 Resp 27 H 08/24/21 16:00 BP 124/58 08/24/21 16:00 Pulse Ox 92 08/24/21 16:00 08/24/21 08/24/21 08/24/21 06:59 14:59 22:59 Intake Total 702.328 / 2155.463 100 / 100 100 / 200 Output Total 725 / 2575 900 / 900 Balance -22.672 / -419.537 100 / 100 -800 / -700 Weight last 48 hrs Weight 89.358 kg Weight 122.47 kg Physical Exam Const: COMMON NORMALS: apparent distress EXAM LIMITATIONS: altered mental status GENERAL APPEARANCE: cooperative, well kempt and well developed ORIENTATION/CONSCIOUSNESS: Yes awake, Yes oriented to person, Yes oriented to place and Yes confused (tired appearing); not oriented to time HENMT: COMMON NORMALS: normocephalic and Normal external nose present HEAD & SCALP: normocephalic FACE & SINUS: normal facial exam NOSE: Normal external nose present THROAT: posterior oropharynx normal Eye: COMMON NORMALS: Equal, round and reactive pupils present, EOMs intact bilaterally and conjunctivae normal CONJUNCTIVA: Yes conjunctivae normal PUPIL: Yes Equal, round and reactive pupils present Neck/C-Spine: COMMON NORMALS: full ROM, no lymphadenopathy, no meningeal signs, Thyroid normal and No carotid bruits THYROID: Thyroid normal Lymph: LYMPHATIC: no lymphadenopathy noted Chest: COMMONS NORMALS: normal inspection of the chest Resp: COMMON NORMALS: No retractions and No use of accessory muscles EFFORT & INSPECTION: Yes tachypneic AUSCULTATION: diminished lung sounds diffuse Cardio: COMMON NORMALS: regular rate, regular rhythm, S1 normal heart sound present, S2 normal heart sound present, No murmurs present (Cardio) and Peripheral pulses 2+ throughout RATE: regular rate RHYTHM: regular rhythm HEART SOUNDS: S1 normal heart sound present and S2 normal heart sound present PERIPHERAL PULSES: Peripheral pulses 2+ throughout GI: COMMON NORMALS: Normal to inspection, nondistended, normoactive bowel sounds present, Soft to palpation, non-tender and No hepatosplenomegaly present PALPATION: Yes Soft to palpation and Yes No hepatosplenomegaly present : COMMON NORMALS: Yes no CVA tenderness BLADDER/KIDNEY EXAM: Yes no CVA tenderness Back/Pelvis: COMMON NORMALS: no CVA tenderness Extremity: COMMON NORMALS: normal to inspection, full ROM, capillary refill normal, no calf tenderness and no pedal edema Neuro: COMMON NORMALS: moves all extremities, no focal motor deficits and no sensory deficits noted SENSORIUM/ORIENTATION: Yes oriented to person, Yes oriented to place and No oriented to time MENINGEAL SIGNS: Yes no meningeal signs Psych: COMMON NORMALS: cooperative and speech normal APPEARANCE: Yes well kempt SPEECH: Yes normal speech Skin: COMMON NORMALS: turgor normal and no jaundice GENERAL SKIN EXAM: turgor normal Urinary Catheter Management: Alva: Cath Placed During This Visit: yes Reason for Continuing Indwelling Catheter: Accurate Measurement of Urinary Output in Critically Ill Patients Urinary Catheter Date of Insertion: 08/20/21 Urinary Catheter Time of Insertion: 22:30 Data : 08/24/21 02:19 08/24/21 02:19 Micro: Microbiology 08/20/21 20:21 Blood Culture - Preliminary Blood Staphylococcus epidermidis Corynebacterium species 08/20/21 20:21 Blood Culture - Preliminary Blood Staphylococcus epidermidis Corynebacterium species 08/22/21 10:50 Blood Culture - Preliminary Blood NEGATIVE TO DATE 08/22/21 11:11 Blood Culture - Preliminary Blood NEGATIVE TO DATE A&P Assessment and plan (1) Bacteremia due to Staphylococcus epidermidis: Status: Acute (2) Acute respiratory distress syndrome (ARDS) due to 2019 novel coronavirus: Status: Acute (3) 2019 novel coronavirus-infected pneumonia (NCIP): Status: Acute (4) Acute encephalopathy: Status: Acute (5) Restrictive lung disease secondary to obesity: Status: Acute (6) FREDERICK (obstructive sleep apnea): Status: Acute (7) Acute kidney injury superimposed on CKD: Status: Acute Plan Staphylococcal bacteremia: 4 out of 4 blood cultures from admission positive. Repeat blood cultures from 08/22 so far negative. Awaiting sensitivities currently. Continue with vancomycin and imipenem. Will de-escalate antibiotics as per culture results. MRSA swab negative. ARDS secondary to COVID-19 pneumonia: Moderate to severe disease. Oxygen supplementation keeping saturation over 88%. Continue with heated high flow. If patient's rate of breathing increasing again can start on BiPAP. BiPAP nightly otherwise. Received Actemra in the ER on 08/20. Dexamethasone 6 mg daily. As patient is on high oxygen supplementation even with acute kidney injury on CKD it was discussed that it might be more beneficial for her to be on remdesivir while we continue to monitor renal functions. Patient verbalizes understanding and is agreeable. Continue remdesivir to finish a 5-day course. Renal function stable Vitamin C, zinc. DuoNeb every 4 hour, budesonide twice daily Pulmonary toilet with incentive spirometry flutter valve. Nystatin squish and swallow. Magic mouthwash. We will monitor inflammatory markers including D-dimer, CRP every 48 hourly. For now trending down. CRP down to 19.4. D-dimer elevated. Unfortunately cannot do CTA given DEIRDRE on CKD. Cannot do VQ scan. Lower limb Dopplers negative for DVT. As patient's oxygen supplementation as high as 90% FiO2 with heated high flow for now we will continue with heparin drip. If D-dimer trending down and switch back to prophylactic dose Lovenox. Given hypoxia will try to keep patient as negative as possible. IV Lasix 40 mg once. Patient overall euvolemic. Alva catheter Strict input output charting, daily weights. DEIRDRE on CKD: Creatinine 1.5-1.8. Creatinine stable. Getting Lasix today because of ARDS Medical reconciliation done for nephrotoxic drugs. We will continue to monitor BMP daily. Hyperkalemia: Resolved. Hypertension: Goal blood pressure less than 140/90 mmHg. Blood pressure at target. Patient is on Precedex now. For now hold off any further verapamil. We will restart as per blood pressure and heart rate. Type II diabetes mellitus: Insulin sliding scale at mild dose protocol. A1c 6.7. Does not seem to be on any hypoglycemics at home. Acute encephalopathy most likely secondary to severe illness from possible sepsis, COVID-19, baseline anxiety and PTSD Anxiety/PTSD: Continue with home dose of Celexa and hydroxyzine. Xanax 0.5 every 8 hours as needed. Precedex drip. [place] 5mg Q8h PRN. High anion gap metabolic acidosis: Most likely in setting of acute kidney injury on CKD. Gentle hydration as above. We will continue to monitor. CODE STATUS: Full code. Lovenox for DVT prophylaxis. Protonix for PUD prophylaxis. Guarded prognosis. Low threshold for intubation Switch to full liquid diet Plan for day: Continue with heated high flow during the day. Maintain saturation over 88%. IV Lasix 40 mg. Follow-up blood cultures. BiPAP nightly. Continue with home dose of Celexa and hydroxyzine along with Xanax as needed for anxiety. Out of bed to chair for as long as possible. [place] every 8 hours for pain. Lidocaine patch. Proning when possible. Goals of care discussion: Discussed in detail with patient's over the phone and with patient at bedside. We discussed that patient work her breathing is very high and there is high risk of patient tiring out. Discussed that patient is requiring high oxygen supplementation. Discussed that patient oxygen supplementation gets any worse she would need to be intubated. Patient verbalized understanding and is agreeable for intubation if needed. Attestations Medical Necessity Statement*: Requires further hospitalisation for ARDS for COVID 19 Time Spent in Patient Care: Greater than 35 minutes Coding Level of Care Code Acute Community Coordinator [employer] for [facility] Fwd Diagnoses Bacteremia due to Staphylococcus epidermidis R78.81; B95.7 Acute respiratory distress syndrome (ARDS) due to 2019 novel coronavirus U07.1; J80 2019 novel coronavirus-infected pneumonia (NCIP) U07.1; J12.82 Acute encephalopathy G93.40 Restrictive lung disease secondary to obesity J98.4; E66.9 FREDERICK (obstructive sleep apnea) G47.33 Acute kidney injury superimposed on CKD N17.9; N18.9
[2021-08-24 17:30] LABS: Glucose Point of Care 84 mg/dL (70-110)
[2021-08-24] MEDS: remdesivir 100 MG in sodium chloride 0.9% (100 ml) 80 ML IV (17:33)
[2021-08-24] MEDS: dexamethasone 10 mg/mL INJ 6 MG IVP (20:44)
[2021-08-24] MEDS: pantoprazole 40 mg SDV IVP (20:45)
[2021-08-24] MEDS: hyDROXYzine 25 mg Capsule PO (21:11)
--- NOTE | 2021-08-24 21:34 | PC.NURSE ---
Called Dr. Cordero at 2121 in regards to the patient breathing 40-50 times per minute and being extremely anxious. Already tried giving her prn xanax, hydroxyzine, and norco. Per day shift report, they turned off precedex due to low patient heart rate. Dr. Cordero aware of this at this time, and wants to try the precedex drip again and to call him if we have heart rate issues with it this time.
[2021-08-24 22:07] LABS: Glucose Point of Care 130 mg/dL (70-110)
[2021-08-24 23:45] LABS: Partial Thromboplastin Time 34.8 SECONDS (23.9-36.7)
[2021-08-25] VITALS (66 sets, daily range): BP systolic 123–170; BP diastolic 57–80; PULSE 51–80; RESP 4–68; TEMP 36.6; O2SAT 87–93
[2021-08-25] MEDS: vancomycin 1,500 MG/300 ML PIGGYBACK 200 MG IV (02:11)
[2021-08-25] MEDS: ipratropium-albuterol 3 mL Neb INHALATION ×6 (03:23→23:35)
[2021-08-25 03:49] LABS: ABG PCO2 45.3 mmHg (35-45); Alveolar-Arterial Oxygen Gradi 58.6 mmHg (5-10); Arterial Blood Gas Hematocrit 35.5 % (37-47); Base Excess ABG 2.5 mmol/L (-2.0-2.0); Blood Gas Allen Test Pos; Blood Gas Sample Site Radial, right; Blood Gas Sample Type Arterial; Carboxyhemoglobin 0.8 %THgb (0.4-20.1); HCO3 ABG 27.9 mmol/L (22-26); HGB O2 Sat 91.4 % (95-100); Ionized Calcium Level - ABG 1.2 mmol/L (1.1-1.4); Methemoglobin 0.5 % (0.4-1.5); Oxygen Device BIPAP; Oxygen Saturation ABG 92.6; PO2 ABG 67.5 mmHg (80.0-100.0); Potassium Level - ABG 3.8 mmol/L (3.5-5.0); Total Hemoglobin 11.6 g/dL (12-16)
--- NOTE | 2021-08-25 06:14 | PC.NURSE ---
Paged Dr. Cordero at [phone] in regards to the heparin drip. Heparin drip last stopped at 0300 on due to critically high PTT level. No new orders as to when to restart the heparin drip; clarifying with Dr. Cordero of this. Orders to recheck a PTT now and then to restart per protocol. Patient remained anxious when awake despite the prn orders given for xanax, hydroxyzine, and norco. She would breath 40-50 times a minute when awake on 80% on the bipap. With the precedex drip going at 0.9mcg, she was relaxed and was still tachypneic but at a rate of 25-30 respirations per minute. Heart rate maintained with precedex drip; the lowest I saw it was at around 56 bpm, but mostly in the 60's. Urine output was 950ml for my shift. No bowel movement. Patient does not seem to be very motivated. No appetite. Remained alert and oriented throughout the shift. No further concerns at this time.
[2021-08-25 07:13] LABS: Basophils # 0.1 10^3/uL (0.0-0.1); Basophils % 0.4 %; Eosinophils # 0.2 10^3/uL (0.0-0.8); Eosinophils % 1.3 %; Hematocrit 37.6 % (37.0-47.0); Hemoglobin 11.8 g/dL (11.5-15.3); Lymphocytes # 1.1 10^3/uL (0.8-4.8); Lymphocytes % 7.9 %; Mean Corpuscular HGB Conc 31.4 g/dL (30.0-36.0); Mean Corpuscular Hemoglobin 28.9 pg (28.0-34.0); Mean Corpuscular Volume 92.2 fl (81-99); Mean Platelet Volume 9.4 fL (7.4-10.4); Monocytes # 0.4 10^3/uL (0.2-0.9); Monocytes % 2.6 %; Neutrophils # 10.97 10^3/uL (1.8-7.7); Nucleated Red Blood Cells % 0.2 %; Platelet Count 322 10^3/cmm (130-400); Red Blood Count 4.08 10^6/uL (4.1-5.3); Red Cell Distribution Width 13.7 % (12.1-15.1); White Blood Count 13.6 10^3/uL (4.0-10.0)
[2021-08-25 07:27] LABS: Alanine Aminotransferase 35 U/L (0-33); Albumin Level 3.4 g/dL (3.5-5.2); Alkaline Phosphatase 132 IU/L (35-105); Anion Gap 17.7 (5-19); Aspartate Amino Transferase 60 U/L (0-32); Blood Urea Nitrogen 55 mg/dL (8-23); C Reactive Protein 20.9 mg/L (0.0-4.9); Calcium 9.1 mg/dL (8.5-10.5); Carbon Dioxide 23 mmol/L (22-29); Chloride 100 mmol/L (98-107); Glomerular Filtration Rate 37.7 mL/min (90-130); Glucose 207 mg/dL (65-115); Osmolality Calculated 305 mOsm/kg (285-295); Potassium 3.7 mmol/L (3.5-5.1); Sodium 137 mmol/L (136-145); Total Bilirubin 0.3 mg/dL (0.15-1.2); Total Protein 6.4 g/dL (6.6-8.7)
[2021-08-25 07:37] LABS: D Dimer >= 20.00 ug/mIFEU (0-0.59)
[2021-08-25 07:41] LABS: Partial Thromboplastin Time 154.1 SECONDS (23.9-36.7)
[2021-08-25 07:44] LABS: Neutrophils % 87.8 %; Slide Review Slide Review Perform
[2021-08-25] MEDS: budesonide 0.5 mg/2 mL Neb INHALATION ×2 (07:50→20:07)
[2021-08-25] MEDS: insulin lispro 100 unit/1 mL SUBCUT (09:44)
--- NOTE | 2021-08-25 10:15 | PC.CHAP ---
Pastoral Care Encounter/Spiritual Assessment Type of Contact [] Declined electrical contractor visit [] Patient/Family/Request visit [] Outpatient visit [] Follow-up visit [] Physician referral [] Code/Alert [x] Routine visit [] Staff referral [] Actively dying [] Patient sleeping [] Family support [] [] Out of room [] Palliative care [] [] Receiving care in room [] Pre-surgical visit [] Trauma [] Long length of stay [x] ICU visit [x] Other: vent Relational/Emotional Strength [] Patient feels connected with others/family/visitors/staff [] Distress [] Loneliness/isolation [] Abandonment Spirituality of Patient [] Person of Herlinda [] Attends Voodoo of their Herlinda [] Believes in Prayer [] Reads Bible or Orthodoxy materials [] There are Spiritual issues to be addressed Fire Pilot Interventions [x] Prayer [] Active listening [] Non-anxious presence [] Spiritual/emotional support [] Crisis/trauma care [] Spiritual counseling [] Bereavement support [] Provided bereavement packet [] Provided Bible/devotional materials [] Provided toy/stuffed animal, coloring book to patient or family member [] Provided Communion [] Anointing/[place] [] Salvation [x] Completed spiritual assessment [] Other: Impact on Illness or Injury [] Angry [] Fearful [] Anxious [] Often cries [] Exhaustion [] Unable to work [] Unable to attend yarsanism [] Unable to walk/stand [] Unable to read [] Unable to drive [] Unable to eat/drink [] Unable to sleep [] Unable to be with family [] Patient intubated [] Other: Summary Time spent with patient
[2021-08-25 11:23] LABS: Glucose Point of Care 134 mg/dL (70-110)
--- NOTE | 2021-08-25 11:29 | P.PN_ITS ---
Subjective Subjective: Lethargic. Denies pain. States she is tired. Follows basic commands. Weak. Vitals/I&O/Wt Last Vital Signs Temp 97.8 F 08/24/21 17:01 Pulse 65 08/25/21 10:00 Resp 26 H 08/25/21 10:00 BP 158/65 08/25/21 10:00 Pulse Ox 90 08/25/21 10:00 08/24/21 08/25/21 08/25/21 22:59 06:59 14:59 Intake Total 283.68 / 383.68 896.527 / 1280.207 612.571 / 612.571 Output Total 1550 / 1550 950 / 2500 Balance -1266.32 / -1166.32 -53.473 / -1219.793 612.571 / 612.571 Weight last 48 hrs Weight 120.3 kg Weight 89.358 kg Physical Exam Const: COMMON NORMALS: no acute distress GENERAL APPEARANCE: lethargic NUTRITIONAL APPEARANCE: obese ORIENTATION/CONSCIOUSNESS: Yes lethargic HENMT: COMMON NORMALS: oropharynx normal Neck/C-Spine: COMMON NORMALS: no JVD Resp: COMMON NORMALS: normal respiratory effort and clear to auscultation bilaterally AUSCULTATION: clear to auscultation bilaterally Cardio: COMMON NORMALS: no JVD, regular rhythm, S1 normal heart sound present, S2 normal heart sound present and No murmurs present (Cardio) RHYTHM: regular rhythm HEART SOUNDS: S1 normal heart sound present and S2 normal heart sound present GI: COMMON NORMALS: Normal to inspection, nondistended, normoactive bowel sounds present, Soft to palpation and non-tender PALPATION: Yes Soft to palpation Extremity: COMMON NORMALS: no joint enlargement and no pedal edema Neuro: COMMON NORMALS: moves all extremities SENSORIUM/ORIENTATION: Yes lethargic Skin: COMMON NORMALS: no rashes or lesions noted GENERAL SKIN EXAM: no rashes or lesions noted Urinary Catheter Management: Alva: Cath Placed During This Visit: yes Reason for Continuing Indwelling Catheter: Accurate Measurement of Urinary Output in Critically Ill Patients Urinary Catheter Date of Insertion: 08/20/21 Urinary Catheter Time of Insertion: 22:30 Data : 08/25/21 06:39 08/25/21 06:39 Micro: Microbiology 08/20/21 20:21 Blood Culture - Preliminary Blood Staphylococcus epidermidis Corynebacterium species 08/20/21 20:21 Blood Culture - Preliminary Blood Staphylococcus epidermidis Corynebacterium species A&P Assessment and plan (1) Bacteremia due to Staphylococcus epidermidis: Staphylococcus epidermidis and current bacterium, 4/4 bottles from culture 08/20. No growth so far on repeat cultures. Continue vancomycin. Rise in leukocytosis noted. She has been lethargic, at risk of aspiration, for now continue Primaxin unchanged. Status: Acute (2) Acute respiratory distress syndrome (ARDS) due to 2019 novel coronavirus: Hypoxic respiratory failure with severe COVID-19. Continue oxygen support, currently with BiPAP support. Continue Decadron. Continue empiric antibiotics for now. Status post Actemra 08/20. Completing remdesivir course today Continue prophylactic Lovenox. Status: Acute (3) 2019 novel coronavirus-infected pneumonia (NCIP): Status: Acute (4) Acute encephalopathy: Lethargic this morning. Received hydroxyzine last night, as well as Xanax, hydrocodone, history afternoon also morphine. Wean down Precedex drip. Hold off additional medications for now which could make her lethargic. baseline anxiety and PTSD Status: Acute (5) Restrictive lung disease secondary to obesity: Status: Acute (6) FREDERICK (obstructive sleep apnea): BiPAP nightly. Status: Acute (7) Acute kidney injury superimposed on CKD: Improving gradually. Status: Acute Plan D-dimer elevated. Unfortunately cannot do CTA given DEIRDRE on CKD. Cannot do VQ scan. Lower limb Dopplers negative for DVT. As patient's oxygen supplementatio n as high as 90% FiO2 with heated high flow for now we will continue with heparin drip. If D-dimer trending down and switch back to prophylactic dose Lovenox. Hyperkalemia: Resolved. Hypertension: Goal blood pressure less than 140/90 mmHg. Blood pressure at target. Patient is on Precedex now. For now hold off any further verapamil. We will restart as per blood pressure and heart rate. Type II diabetes mellitus: Insulin sliding scale at mild dose protocol. A1c 6.7. Does not seem to be on any hypoglycemics at home. Anxiety/PTSD: At home on Celexa and hydroxyzine. Has been on Xanax 0.5 every 8 hours as needed. Precedex drip. [place] 5mg Q8h PRN. Weaning down currently. High anion gap metabolic acidosis: Improving. Most likely in setting of acute kidney injury on CKD. Attestations Medical Necessity Statement*: Continue admission for assessment management of hypoxic respite failure with severe COVID-19. Critical Care Time: The high probability of a clinically significant, sudden or life threatening deterioration of the patient's encephalopathy and respiratory system(s) required my full and direct attention, intervention and personal management. The critical care time is as shown. This time is in additi on to time spent performing any reported procedures but includes the following: x Data and vital sign review and interpretation x Patient assessment, examination and intervention x Documentation x Medication orders and management Critical Care Time (min): 40 Coding Level of Care Code Acute Ship Manager for [facility] Fwd Exam Comprehensive Diagnoses Bacteremia due to Staphylococcus epidermidis R78.81; B95.7 Acute respiratory distress syndrome (ARDS) due to 2019 novel coronavirus U07.1; J80 2019 novel coronavirus-infected pneumonia (NCIP) U07.1; J12.82 Acute encephalopathy G93.40 Restrictive lung disease secondary to obesity J98.4; E66.9 FREDERICK (obstructive sleep apnea) G47.33 Acute kidney injury superimposed on CKD N17.9; N18.9
[2021-08-25] MEDS: heparin drip 25,000 UNIT/500 ML PREMIX 68.89 UNIT IV (11:50)
[2021-08-25] MEDS: lidocaine 5% Patch 1 PATCH TOPICAL (11:50)
--- NOTE | 2021-08-25 11:52 | PC.SOCIAL ---
IMM update IMM updated with patient's . Verbalized an understanding. Initialled, dated, timed, and placed in chart.
[2021-08-25 13:49] LABS: Partial Thromboplastin Time 135.9 SECONDS (23.9-36.7)
[2021-08-25] MEDS: remdesivir 100 MG in sodium chloride 0.9% (100 ml) 80 ML IV (17:54)
[2021-08-25] MEDS: LORazepam 2 mg/mL INJ 1 mL 1 MG IVP ×2 (18:36→21:25)
--- NOTE | 2021-08-25 19:36 | PC.NURSE ---
Precedex found at 0.7mcg upon initial assessment.
--- NOTE | 2021-08-25 19:53 | PC.NURSE ---
Paged Dr. Chapin at 194 in regards to the patient's oxygen requirements. Informed Dr. Chapin that the patient is on 100% on the bipap and is breathing around 37 times a minute with abdominal muscle use with an oxygen saturation 89-91%. Also informed him that they had given her 1mg of ativan around 1830 due to her having a panic attack that resulted in her being bumped from 80% to 100% on the bipap prior to shift change. Orders to max out the precedex and see if that helps, if it does not help or she worsens to give him another call. Will continue to monitor patient's oxygen saturation and work of breathing.
[2021-08-25 20:00] LABS: Glucose Point of Care 120 mg/dL (70-110)
[2021-08-25] MEDS: FUROsemide 10 mg/mL SDV 4mL 40 MG IVP (20:25)
[2021-08-25] MEDS: dexamethasone 10 mg/mL INJ 6 MG IVP (20:25)
[2021-08-25 20:58] LABS: Glucose Point of Care 128 mg/dL (70-110)
[2021-08-25 21:05] LABS: Partial Thromboplastin Time 40.1 SECONDS (23.9-36.7)
[2021-08-25] MEDS: pantoprazole 40 mg SDV IVP (21:13)
[2021-08-26] VITALS (72 sets, daily range): BP systolic 81–156; BP diastolic 54–81; PULSE 60–111; RESP 17–41; TEMP 36.3–36.8; O2SAT 26–94
[2021-08-26] MEDS: heparin 5,000 unit/mL INJ 1 mL IV (00:06)
[2021-08-26 00:12] LABS: ABG PCO2 37.4 mmHg (35-45); ABG PH Result 7.46 (7.35-7.45); Alveolar-Arterial Oxygen Gradi 79.6 mmHg (5-10); Arterial Blood Gas Hematocrit 40.8 % (37-47); Base Excess ABG 2.6 mmol/L (-2.0-2.0); Blood Gas Allen Test Pos; Blood Gas Sample Site Radial, right; Blood Gas Sample Type Arterial; Carboxyhemoglobin 0.8 %THgb (0.4-20.1); HCO3 ABG 26.5 mmol/L (22-26); Ionized Calcium Level - ABG 1.2 mmol/L (1.1-1.4); Methemoglobin 0.8 % (0.4-1.5); Oxygen Device BIPAP; Oxygen Saturation ABG 90.5; PO2 ABG 58.8 mmHg (80.0-100.0); Potassium Level - ABG 3.6 mmol/L (3.5-5.0); Total Hemoglobin 13.3 g/dL (12-16)
--- NOTE | 2021-08-26 00:32 | XRR_ITS ---
PROCEDURE INFORMATION: Exam: XR Chest Exam date and time: 08/26/2021 12:32 AM Age: 66 years old Clinical indication: Dyspnea; Additional info: Resp failure TECHNIQUE: Imaging protocol: XR of the chest. Views: 1 view. COMPARISON: CR (CHEST, ) 08/20/2021 5:36 PM FINDINGS: Lungs: Bilateral pulmonary infiltrates suggestive of pneumonia, no change allowing for differences in inspiratory technique.. Pleural spaces: Unremarkable. No pleural effusion. No pneumothorax. Heart/Mediastinum: No cardiomegaly. Bones/joints: No acute fracture. XR/XR chest 1V portable [id number] IMPRESSION: Bilateral pulmonary infiltrates suggestive of pneumonia, no change.
--- NOTE | 2021-08-26 00:44 | PC.NURSE ---
Dr. Chapin near bedside at 2031 and updated on patient respiratory status. Patient breathing with a respiratory rate in the 60's and still with an oxygen saturation 88-91% on 100% on the bipap. Dr. Chapin at bedside 2055 with patient increasingly more anxious and still breathing 60-70 times a minute. Orders for a one time dose of 1mg ativan IV.
[2021-08-26 01:22] LABS: Vancomycin Trough 23.1 ug/mL (10-15)
[2021-08-26] MEDS: succinylcholine 20 mg/mL SDV 10mL 180 MG IVP (01:30)
--- NOTE | 2021-08-26 01:34 | XRR_ITS ---
PROCEDURE INFORMATION: Exam: XR Chest Exam date and time: 08/26/2021 1:34 AM Age: 66 years old Clinical indication: Device placement; Ett placement (vent status); Patient HX: Intubated, central line placement; Additional info: Intubation TECHNIQUE: Imaging protocol: XR of the chest. Views: 1 view. COMPARISON: CR (CHEST, ) 08/26/2021 1:06 AM FINDINGS: Tubes, catheters and devices: Endotracheal tube projects above the level of the patrick. Right IJ line tip projects in the SVC. Lungs: Bilateral pulmonary infiltrates suggestive of pneumonia. Pleural spaces: Unremarkable. No pleural effusion. No pneumothorax. Heart/Mediastinum: No cardiomegaly. Bones/joints: No acute fracture. XR/XR chest 1V portable [id number] IMPRESSION: 1. Satisfactory positioning of lines and tubes. 2. Bilateral pulmonary infiltrates suggestive of pneumonia.
--- NOTE | 2021-08-26 01:51 | P.EN_ITS ---
Event Note Event Note: Called by nursing with patient multiple times secondary to increased respiratory rate, borderline saturations of 88 to 89% on 100% BiPAP. ABG was done demonstrating PO2 less than 60, PCO2 still acceptable. Secondary to the patient's respiratory distress despite 100% BiPAP I discussed with the sanket cortes's family() risks and benefits of endotracheal intubation and central line placement. They agreed after risks and benefits were discussed to proceed. I called Dr. Frost, emergency department physician for assistance. He was able to put in an 8-0 endotracheal tube without difficulty, using a glide scope. This was pulled back 3 cm after initial x-ray demonstrated this was at or slightly beyond the patrick. He then used ultrasound and placed a triple- lumen catheter in the right IJ without difficulty. Chest x-ray pending currently. No obvious complications were noted with the procedure and minimal blood loss. At this point plan on sedating, paralyzing, and proning the patient. ABG will be drawn in approximately 30 minutes to 1 hour after stabilized on sedative and paralytic medication.
[2021-08-26] MEDS: propofol 1,000 MG/100 ML INJ 36.09 MG IV ×4 (02:00→09:14)
--- NOTE | 2021-08-26 02:07 | W.ED.COVID ---
HPI - COVID General: Chief Complaint: COVID symptoms Stated Complaint: COVID +/ RESPIRATORY DISTRESS Time Seen by Provider: 08/20/21 17:20 Triage information: Has fever, cough or shortness of breath. Exposure to COVID + person last 14 days History of Present Illness: k COVID Results: Nasal/Oral Coronavirus 2019 PCR Not detected 01/15/21 10:12 01/15/21 SARS-CoV-2 (PCR) Detected (NOT DETECT) A 08/16/21 20:25 08/16/21 Coronavirus Type 229E (PCR) Not detected (NOT DETECT) 08/16/21 20:25 08/16/21 [facility] ED PFS: Medical History (Updated 08/22/21 @ 18:21 by Gómez Edward MD) Asthma Benign essential HTN Bursitis Carpal tunnel syndrome CKD (chronic kidney disease) COVID-19 Dyslipidemia History of breast cancer Hx of ovarian cancer Hyperlipidemia Hypertension Lupus Near syncope Neuropathy Obesity Osteoarthritis Ovarian cancer PTSD (post-traumatic stress disorder) SVT (supraventricular tachycardia) Transient global amnesia Ulnar tunnel syndrome Surgical History (Updated 08/21/21 @ 17:41 by Gómez Edward MD) H/O lumpectomy H/O oophorectomy History of cataract extraction History of hysterectomy History of tonsillectomy and adenoidectomy Hx of section Hx of cholecystectomy Hx of umbilical hernia repair Family History Daughter Anesthesia complication Father CAD (coronary artery disease) Dementia Stroke Grandmother Cancer Grandfather Cancer Brother Lung disease Mother Suicide Sister Suicide Other Hyperlipidemia Hypertension Denies family history of Rheumatoid arthritis Diabetes Lupus Clotting disorder Chronic kidney disease (CKD) Bleeding disorder Social History Quit status (tobacco): has quit using tobacco Year quit tobacco: 2004 Former quit date comment: [id number] Second hand smoke exposure: No Smoking risk assessment/counseling performed?: Yes Alcohol intake: current Alcohol intake frequency: holidays/special occasions only Lives independently: Yes Household members: spouse Marital status: service: Yes Current occupational status: disabled Pets and animals: Yes History of recent travel: No Current gender identity: Female Procedures Central Line Placement Right IJ: Time Out Performed: Yes Patient Placed on Monitor/Pulse Ox: Yes MD Prep: mask, gown and gloves Central Line Prep: Povidone-Iodine 1% Local Anesthetic: lidocaine 1% Amount of anesthesia used (mL): 3 Ultrasound Used for Placement: Yes Central Line Lumen Inserted: triple Post Procedure: sutured in place, good blood return, all ports aspirated, flushed, capped and sterile dressing applied Post Procedure X-Ray: tip of catheter in good position and no pneumothorax seen Patient Tolerated Procedure: well Complications: none Intubation Time out performed: Yes sedative: Etomidate Mg Given: 20 paralytic: Succinylcholine Mg Given: 180 Laryngoscope: Tracy ET Tube Size: 8 ET Tube Uncuffed: No Tube Secured Depth (cm): 22 Tube Secured Location: teeth Tube Placement Confirmation: visualized tube passing through cords, equal breath sounds bilaterally, no breath sounds over epigastrium and confirmation by capnometry Patient Tolerated Procedure: well Intubation Complications: none Course Vital Signs: Vital signs: Vital Signs Temperature 97.8 F 08/25/21 16:01 Pulse Rate 65 08/26/21 00:15 Respiratory Rate 36 H 08/26/21 01:39 Blood Pressure 133/81 08/26/21 00:15 Pulse Oximetry 90 08/26/21 00:15 [facility] - COVID Medical Decision Making I was called over ICU to intubate patient and place a central line. Patient does have COVID has been on BiPAP with hypoxia did intubate in place central line with no complications. Lab Data : 08/25/21 06:39 08/25/21 06:39 Laboratory Results WBC 11.5 10^3/uL (4.0-10.0) H 08/20/21 18:47 RBC 4.01 10^6/uL (4.1-5.3) L 08/20/21 18:47 Hgb 11.5 g/dL (11.5-15.3) 08/20/21 18:47 Hct 36.8 % (37.0-47.0) L 08/20/21 18:47 MCV 91.8 fl (81-99) 08/20/21 18:47 MCH 28.7 pg (28.0-34.0) 08/20/21 18:47 MCHC 31.3 g/dL (30.0-36.0) 08/20/21 18:47 RDW 13.8 % (12.1-15.1) 08/20/21 18:47 Plt Count 397 10^3/cmm (130-400) 08/20/21 18:47 MPV 10.4 fL (7.4-10.4) 08/20/21 18:47 Neut % (Auto) 88.5 % 08/20/21 18:47 Lymph % (Auto) 6.6 % 08/20/21 18:47 [place] % (Auto) 3.0 % 08/20/21 18:47 Eos % (Auto) 0.0 % 08/20/21 18:47 Baso % (Auto) 0.1 % 08/20/21 18:47 Neut # (Auto) 10.17 10^3/uL (1.8-7.7) H 08/20/21 18:47 Lymph # (Auto) 0.8 10^3/uL (0.8-4.8) 08/20/21 18:47 [place] # (Auto) 0.3 10^3/uL (0.2-0.9) 08/20/21 18:47 Eos # (Auto) 0.0 10^3/uL (0.0-0.8) 08/20/21 18:47 Baso # (Auto) 0.0 10^3/uL (0.0-0.1) 08/20/21 18:47 Nucleated RBC % (auto) 0.2 % 08/20/21: Nucleated RBCs # 0.0 /100WBC 08/20/21 18:47 PT 14.40 SECONDS (12.1-14.9) 08/20/21 18:47 INR 1.09 (0.8-1.2) 08/20/21 18:47 APTT 26.5 SECONDS (23.9-36.7) 08/20/21 18:47 Fibrinogen 690 mg/dL (174-498) H 08/20/21 18:47 D-Dimer 0.88 ug/mIFEU (0-0.59) H 08/20/21 18:47 Sodium 135 mmol/L (136-145) L 08/20/21 18:47 Potassium 5.4 mmol/L (3.5-5.1) H 08/20/21 18:47 Chloride 100 mmol/L (98-107) 08/20/21 18:47 Carbon Dioxide 17 mmol/L (22-29) L 08/20/21 18:47 Anion Gap 23.4 (5-19) H 08/20/21 18:47 BUN 56 mg/dL (8-23) H 08/20/21 18:47 Creatinine 2.2 mg/dL (0.5-0.9) H 08/20/21 18:47 GFR Calculation 22.4 mL/min (90-130) L 08/20/21 18:47 Glucose 259 mg/dL (65-115) H 08/20/21 18:47 Estimat Average Glucose 146 08/20/21 18:47 Hemoglobin A1c 6.7 % (4.0-6.0) H 08/20/21 18:47 Calculated Osmolality 304 mOsm/kg (285-295) H 08/20/21 18:47 Lactic Acid 3.1 mmol/L (0.5-2.2) H 08/20/21 18:47 Calcium 9.7 mg/dL (8.5-10.5) 08/20/21 18:47 Magnesium 2.3 mg/dL (1.7-2.3) 08/20/21 18:47 Ferritin 1417 ng/mL (15-150) H 08/20/21 18:47 Total Bilirubin 0.4 mg/dL (0.15-1.2) 08/20/21 18:47 AST 29 U/L (0-32) 08/20/21 18:47 ALT 29 U/L (0-33) 08/20/21 18:47 Alkaline Phosphatase 100 IU/L (35-105) 08/20/21 18:47 Lactate Dehydrogenase 390 U/L (135-214) H 08/20/21 18:47 Creatine Kinase 29 U/L (26-192) 08/20/21 18:47 Troponin T Baseline 10 ng/L (0-10) 08/20/21 18:47 C-Reactive Protein 140.6 mg/L (0.0-4.9) H 08/20/21 18:47 NT-Pro-B Natriuret Pep 345 pg/mL (0-125) H 08/20/21 18:47 Total Protein 6.4 g/dL (6.6-8.7) L 08/20/21 18:47 Albumin 3.8 g/dL (3.5-5.2) 08/20/21 18:47 Globulin 2.6 g/dL (1.3-4.6) 08/20/21 18:47 Triglycerides 438 mg/dL (0-150) H 08/20/21 18:47 Cholesterol 227 mg/dL (0-200) H 08/20/21 18:47 LDL Cholesterol Direct 97 mg/dL (0-100) 08/20/21 18:47 LDL Cholesterol, Calc Not Reportable 08/20/21 18:47 HDL Cholesterol 38 mg/dL (60-100) L 08/20/21 18:47 LDL/HDL Ratio Not Reportable 08/20/21 18:47 Cholesterol/HDL Ratio 5.97 mg/dL (0.0-4.40) H 08/20/21 18:47 Procalcitonin 0.09 ng/mL (0-0.5) 08/20/21 18:47 TSH 0.17 uIU/mL (0.27-4.20) L 08/20/21 18:47 Nasal/Oral Coronavirus 2019 PCR Not detected 01/15/21 10:12 01/15/21 SARS-CoV-2 (PCR) Detected (NOT DETECT) A 08/16/21 20:25 08/16/21 Coronavirus Type 229E (PCR) Not detected (NOT DETECT) 08/16/21 20:25 08/16/21 Discharge Plan Discharge Patient Disposition: Admitted As Inpatient Admit Provider: Vahe Cordero Clinical Impression: 2019 novel coronavirus-infected pneumonia (NCIP), Acute hypoxemic respiratory failure, Acute dyspnea Condition: Stable Coding Level of Care Code ED Fructose Loader for Janet Lea
--- NOTE | 2021-08-26 02:32 | PC.PHAR ---
Vancomycin trough on dosage of 1500mg IVPB every 24 hours is 23.1. Hold Vancomycin for 24 hours and then reduce dosage to 1gm IVPB every 24 hours with another trough to be obtained before the fourth one gram dose.
--- NOTE | 2021-08-26 02:35 | PC.NURSE ---
Called and talked to family Daughter and Son in law and updated them on successful intubation and patients condition. Family appreciative of phone call.
[2021-08-26] MEDS: heparin drip 25,000 UNIT/500 ML PREMIX 25 UNIT IV (02:55)
[2021-08-26] MEDS: cisatracurium 100 MG in sodium chloride 0.9% 50 ML IV (02:57)
--- NOTE | 2021-08-26 03:21 | PC.NURSE ---
Dr. Frost and Dr. Chapin bedside around 0120 for intubation and placement of central line for the patient. Etomidate 20mg given and 180mg of succinylcholine given per verbal orders of Dr. Frost just prior to intubation. Okay to use central line per Dr. Chapin. Sedation initiated. OG placed per verbal orders from Dr. Chapin.
[2021-08-26] MEDS: ipratropium-albuterol 3 mL Neb INHALATION ×5 (03:41→19:35)
--- NOTE | 2021-08-26 03:58 | PC.NURSE ---
Dr. Chapin updated around 0248. Orders to go ahead and restart her heparin and proceed per protocol, since it was paused before intubation and central line placement. Also updated that other nursing staff updated family. Around 0315 Dr. Chapin at bedside. Once we are able to get her adequately sedated and paralyzed to prone the patient 16 hours prone and 8 hours supine. Will continue to titrate her sedation and paralytic so we can prone.
--- NOTE | 2021-08-26 04:00 | XR_ITS ---
WS: [id number] CHEST XRAY TECHNIQUE: Portable chest. CLINICAL INFORMATION: OG placement COMPARISON: August 26, 2021 FINDINGS: Endotracheal tube with tip above the patrick measuring 3.2 cm enteric tube with tip in the s tomach. RIGHT central venous catheter with tip in distal SVC. Heart: Normal cardiac silhouette. Lungs: Diffuse bilateral pulmonary infiltrates unchanged since August 26, 2021 Bones: Normal visualized bony structures. XR/XR chest 1V portable [id number] IMPRESSION: 1. Endotracheal tube with tip 3.2 cm above the patrick. 2. Diffuse bilateral pulmonary infiltrates appear unchanged since August 26, 2021. 3. Enteric tube with tip below the diaphragm with tip in the stomach.
[2021-08-26 06:12] LABS: Hematocrit 40.5 % (37.0-47.0); Mean Corpuscular HGB Conc 32.1 g/dL (30.0-36.0); Mean Corpuscular Hemoglobin 28.8 pg (28.0-34.0); Mean Corpuscular Volume 89.8 fl (81-99); Mean Platelet Volume 9.7 fL (7.4-10.4); Platelet Count 391 10^3/cmm (130-400); Red Blood Count 4.51 10^6/uL (4.1-5.3); Red Cell Distribution Width 13.8 % (12.1-15.1); White Blood Count 17.9 10^3/uL (4.0-10.0)
[2021-08-26 06:26] LABS: Alanine Aminotransferase 26 U/L (0-33); Albumin Level 3.5 g/dL (3.5-5.2); Alkaline Phosphatase 148 IU/L (35-105); Anion Gap 18.1 (5-19); Aspartate Amino Transferase 50 U/L (0-32); Blood Urea Nitrogen 56 mg/dL (8-23); Calcium 8.5 mg/dL (8.5-10.5); Carbon Dioxide 26 mmol/L (22-29); Chloride 100 mmol/L (98-107); Glomerular Filtration Rate 30.2 mL/min (90-130); Glucose 165 mg/dL (65-115); Osmolality Calculated 309 mOsm/kg (285-295); Potassium 4.1 mmol/L (3.5-5.1); Sodium 140 mmol/L (136-145); Total Bilirubin 0.3 mg/dL (0.15-1.2); Total Protein 6.5 g/dL (6.6-8.7)
--- NOTE | 2021-08-26 06:37 | PC.NURSE ---
Patient proned at 0545 this morning with multiple staff assist. Swimming with the right arm up and left arm down with the head turned to the right. Train of 4 now 0/4 to 1/4 and BIS monitor is 35-40. Patient bathed. In touch with respiratory for help with vent management. No further complaints or concerns at this time.
[2021-08-26 06:39] LABS: Base Excess ABG 1.5 mmol/L (-2.0-2.0); Blood Gas Allen Test POS; Oxygen Device VENT
[2021-08-26 06:40] LABS: Arterial Blood Gas Hematocrit 38.8 % (37-47); Blood Gas Sample Site RRAD; Blood Gas Sample Type ART; Blood Gas Vent Mode CMV
[2021-08-26] MEDS: cisatracurium 100 MG in sodium chloride 0.9% 50 ML 28.87 MG IV (06:51)
[2021-08-26 07:45] LABS: Slide Review Slide Review Perform
[2021-08-26 07:46] LABS: Absolute Segmented Neutrophil 12.9 10/cmm (1.6-7.1); Band Neutrophils Absolute 4.1 10^3/cmm (0.0-1.2); Eosinophils 0 %; Lymphocytes 3 %; Lymphocytes Absolute 0.5 10^3/cmm (1.2-3.4); Platelet Estimate Normal (Normal); Segmented Neutrophils 72 %; Total Cells Counted 100 (0-100)
[2021-08-26] MEDS: budesonide 0.5 mg/2 mL Neb INHALATION ×2 (08:02→19:35)
[2021-08-26] MEDS: FUROsemide 10 mg/mL SDV 4mL 40 MG IVP (08:27)
[2021-08-26] MEDS: nystatin 100,000 unit/mL UDC 5 mL 100000 UNIT PO ×4 (08:30→20:15)
[2021-08-26] MEDS: insulin lispro 100 unit/1 mL SUBCUT (08:48)
[2021-08-26] MEDS: lanolin oint 7 gm 1 APPLIC TOPICAL (08:48)
--- NOTE | 2021-08-26 08:50 | P.PN_ITS ---
Subjective Subjective: Intubated, sedated, paralyzed, mechanically ventilated. Vitals/I&O/Wt Last Vital Signs Temp 97.8 F 08/25/21 16:01 Pulse 88 08/26/21 08:20 Resp 22 H 08/26/21 08:09 BP 81/54 08/26/21 06:01 Pulse Ox 92 08/26/21 08:09 08/25/21 08/26/21 08/26/21 22:59 06:59 14:59 Intake Total 330.342 / 9803.111 8654.432 / 2111.863 100 / 100 Output Total 700 / 700 1350 / 2050 Balance -369.658 / 409.431 -347.568 / 61.863 100 / 100 Weight last 48 hrs Weight 122 kg Weight 120.3 kg Physical Exam Const: GENERAL APPEARANCE: patient mechanically ventilated NUTRITIONAL APPEARANCE: obese HENMT: COMMON NORMALS: oropharynx normal Neck/C-Spine: COMMON NORMALS: no JVD Resp: COMMON NORMALS: normal respiratory effort and clear to auscultation bilaterally AUSCULTATION: clear to auscultation bilaterally Cardio: COMMON NORMALS: no JVD, regular rhythm, S1 normal heart sound present, S2 normal heart sound present and No murmurs present (Cardio) RHYTHM: regular rhythm HEART SOUNDS: S1 normal heart sound present and S2 normal heart sound present GI: COMMON NORMALS: Normal to inspection, nondistended, normoactive bowel cheko nds present, Soft to palpation and non-tender PALPATION: Yes Soft to palp ation Extremity: COMMON NORMALS: no joint enlargement and no pedal edema Skin: COMMON NORMALS: no rashes or lesions noted GENERAL SKIN EXAM: no rashes or lesions noted Urinary Catheter Management: Alva: Cath Placed During This Visit: yes Reason for Continuing Indwelling Catheter: Accurate Measurement of Urinary Output in Critically Ill Patients Urinary Catheter Date of Insertion: 08/20/21 Urinary Catheter Time of Insertion: 22:30 Data : 08/26/21 05:50 08/26/21 05:50 Micro: Microbiology 08/20/21 20:21 Blood Culture - Final Blood Staphylococcus epidermidis Corynebacterium species 08/20/21 20:21 Blood Culture - Final Blood Staphylococcus epidermidis Corynebacterium species A&P Assessment and plan (1) Acute respiratory distress syndrome (ARDS) due to 2019 novel coronavirus: Or for respiratory, intubated overnight. We will continue with proning, paralytics. Discussed with RT, ventilator settings adjusted. Additional Lasix 40 mg IV. Monitor LINDSEY. Hypoxic respiratory failure with severe COVID-19. Continue Decadron. Continue empiric antibiotics for now. Status post Actemra 08/20. Completed remdesivir course Continue heparin drip with severe D-dimer elevation Discussed with him on her condition, risks associated with mechanical ventilation, plan. He is in agreement. Status: Acute (2) Bacteremia due to Staphylococcus epidermidis: Staphylococcus epidermidis and current bacterium, 4/4 bottles from culture 08/20. No growth so far on repeat cultures. Continue vancomycin. Rise in leukocytosis noted, possibly secondary to steroid She has been lethargic, at risk of aspiration, for now continue Primaxin unchanged. Status: Acute (3) 2019 novel coronavirus-infected pneumonia (NCIP): Status: Acute (4) Acute encephalopathy: Last night with panic attack, severe anxiety. With improvement with ativan, precedex drip. Subsequently intubated. Received hydroxyzine last night, as well as Xanax, hydrocodone, history afternoon also morphine. Wean down Precedex drip. Hold off additional medications for now which could make her lethargic. baseline anxiety and PTSD Status: Acute (5) Restrictive lung disease secondary to obesity: Status: Acute (6) FREDERICK (obstructive sleep apnea): Was on BiPAP nightly. Status: Acute (7) Acute kidney injury superimposed on CKD: Improving gradually. Status: Acute Plan D-dimer elevated. Unfortunately cannot do CTA given DEIRDRE on CKD. Cannot do VQ scan. Lower limb Dopplers negative for DVT. Cooperative but requiring. Reassess D-dimer. CTA or VQ scan once able to. Hyperkalemia: Resolved. Hypertension Type II diabetes mellitus: Insulin sliding scale at mild dose protocol. A1c 6.7. Does not seem to be on any hypoglycemics at home. Anxiety/PTSD: At home on Celexa and hydroxyzine. Has been on Xanax 0.5 every 8 hours as needed. High anion gap metabolic acidosis: Improving. Most likely in setting of acute kidney injury on CKD. Attestations Medical Necessity Statement*: Continue admission for assessment of hypoxic respite failure with severe COVID-19. Critical Care Time: The high probability of a clinically significant, sudden or life threatening deterioration of the patient's respiratory system(s) required my full and direct attention, intervention and personal management. The critical care time is as shown. This time is in addition to time spent performing any reported procedures but includes the following: x Data and vital sign review and interpretation x Patient assessment, examination and intervention x Documentation x Medication orders and management Critical Care Time (min): 55 Coding Level of Care Code Acute Batch Room Technician for [facility] Fwd Exam Comprehensive Diagnoses Bacteremia due to Staphylococcus epidermidis R78.81; B95.7 Acute respiratory distress syndrome (ARDS) due to 2019 novel coronavirus U07.1; J80 2019 novel coronavirus-infected pneumonia (NCIP) U07.1; J12.82 Acute encephalopathy G93.40 Restrictive lung disease secondary to obesity J98.4; E66.9 FREDERICK (obstructive sleep apnea) G47.33 Acute kidney injury superimposed on CKD N17.9; N18.9
[2021-08-26 08:54] LABS: Glucose Point of Care 145 mg/dL (70-110)
[2021-08-26 09:20] LABS: ABG PCO2 37.8 mmHg (35-45); ABG PH Result 7.34 (7.35-7.45); Alveolar-Arterial Oxygen Gradi 42.1 mmHg (5-10); Arterial Blood Gas Hematocrit 37.2 % (37-47); Carboxyhemoglobin 0.6 %THgb (0.4-20.1); HCO3 ABG 20.5 mmol/L (22-26); HGB O2 Sat 82.8 % (95-100); Methemoglobin 0.6 % (0.4-1.5); Oxygen Saturation ABG 83.8; PO2 ABG 52.7 mmHg (80.0-100.0); Total Hemoglobin 12.1 g/dL (12-16)
[2021-08-26 10:05] LABS: ABG PCO2 53.7 mmHg (35-45); ABG PH Result 7.29 (7.35-7.45); Alveolar-Arterial Oxygen Gradi 55.1 mmHg (5-10); Base Excess ABG -1.6 mmol/L (-2.0-2.0); Blood Gas Allen Test Pos; Blood Gas Operator Identificat CAK; Blood Gas Sample Site Radial, right; Blood Gas Sample Type Arterial; Blood Gas Tidal Volume 0.44; Carboxyhemoglobin 0.5 %THgb (0.4-20.1); HCO3 ABG 25.8 mmol/L (22-26); HGB O2 Sat 93.2 % (95-100); Ionized Calcium Level - ABG 1.2 mmol/L (1.1-1.4); Methemoglobin 1.2 % (0.4-1.5); Oxygen Device VENT; Oxygen Saturation ABG 94.8; PO2 ABG 86.2 mmHg (80.0-100.0); Potassium Level - ABG 3.5 mmol/L (3.5-5.0); Total Hemoglobin 12.7 g/dL (12-16)
[2021-08-26] MEDS: cisatracurium 100 MG in sodium chloride 0.9% 50 ML 21.65 MG IV (10:40)
[2021-08-26 11:35] LABS: Blood Gas Operator Identificat CAK
[2021-08-26 12:48] LABS: Glucose Point of Care 121 mg/dL (70-110)
[2021-08-26 14:34] LABS: Partial Thromboplastin Time 147.8 SECONDS (23.9-36.7)
[2021-08-26 14:47] LABS: Osmolality Urine 418 mOsm/kg (50-1200)
[2021-08-26 17:15] LABS: Glucose Point of Care 126 mg/dL (70-110)
[2021-08-26] MEDS: propofol 1,000 MG/100 ML INJ 28.87 MG IV ×2 (17:49→21:39)
--- NOTE | 2021-08-26 17:59 | PC.NURSE ---
SHift SUmmary: Uneventful day. Patient was lying prone throughout the day. Nurse frequently repositioned. TItrated down on numbed as indicated. Wable able to titrated down and stop versed while maintaining a BIS between 30-60. total urine output during day was 395 mL. Patient's Corey has been updated.
[2021-08-26] MEDS: heparin drip 25,000 UNIT/500 ML PREMIX 11 UNIT IV (19:27)
[2021-08-26] MEDS: cisatracurium 100 MG in sodium chloride 0.9% 50 ML 10.83 MG IV (19:29)
[2021-08-26] MEDS: FUROsemide 10 mg/mL SDV 10mL 60 MG IVP (20:15)
[2021-08-26] MEDS: dexamethasone 10 mg/mL INJ 6 MG IVP (20:15)
[2021-08-26] MEDS: pantoprazole 40 mg SDV IVP (20:16)
[2021-08-26 20:44] LABS: Glucose Point of Care 140 mg/dL (70-110)
[2021-08-26 21:04] LABS: Partial Thromboplastin Time 73.7 SECONDS (23.9-36.7)
[2021-08-27] VITALS (64 sets, daily range): BP systolic 96–228; BP diastolic 49–99; PULSE 72–114; RESP 24; TEMP 36.4–37; O2SAT 88–96
--- NOTE | 2021-08-27 00:01 | PC.NURSE ---
Flipped patient supine with the assistance of nursing staff and RT. Tolerated well. No needs identified at this time.
[2021-08-27] MEDS: ipratropium-albuterol 3 mL Neb INHALATION ×6 (01:05→21:10)
[2021-08-27] MEDS: propofol 1,000 MG/100 ML INJ 28.87 MG IV ×5 (01:44→16:16)
[2021-08-27] MEDS: vancomycin 1,000 MG in sodium chloride 0.9% 250 ML 250 MG IV (02:17)
[2021-08-27] MEDS: cisatracurium 100 MG in sodium chloride 0.9% 50 ML 10.83 MG IV ×3 (02:45→18:53)
[2021-08-27 03:33] LABS: Basophils # 0.1 10^3/uL (0.0-0.1); Basophils % 0.3 %; Eosinophils # 0.3 10^3/uL (0.0-0.8); Eosinophils % 1.5 %; Hematocrit 36.6 % (37.0-47.0); Hemoglobin 11.7 g/dL (11.5-15.3); Lymphocytes % 5.5 %; Mean Corpuscular Hemoglobin 28.6 pg (28.0-34.0); Mean Corpuscular Volume 89.5 fl (81-99); Mean Platelet Volume 10.1 fL (7.4-10.4); Monocytes # 0.3 10^3/uL (0.2-0.9); Monocytes % 1.8 %; Neutrophils # 15.02 10^3/uL (1.8-7.7); Nucleated Red Blood Cells % 0.1 %; Platelet Count 359 10^3/cmm (130-400); Red Blood Count 4.09 10^6/uL (4.1-5.3); White Blood Count 17.9 10^3/uL (4.0-10.0)
[2021-08-27 03:47] LABS: Partial Thromboplastin Time 63.7 SECONDS (23.9-36.7)
[2021-08-27 03:56] LABS: D Dimer 6.82 ug/mIFEU (0-0.59)
[2021-08-27 03:57] LABS: Alanine Aminotransferase 28 U/L (0-33); Albumin Level 3.2 g/dL (3.5-5.2); Alkaline Phosphatase 126 IU/L (35-105); Anion Gap 20.4 (5-19); Aspartate Amino Transferase 50 U/L (0-32); Blood Urea Nitrogen 76 mg/dL (8-23); Calcium 8.7 mg/dL (8.5-10.5); Carbon Dioxide 23 mmol/L (22-29); Chloride 102 mmol/L (98-107); Glomerular Filtration Rate 23.6 mL/min (90-130); Glucose 197 mg/dL (65-115); Osmolality Calculated 322 mOsm/kg (285-295); Potassium 3.4 mmol/L (3.5-5.1); Sodium 142 mmol/L (136-145); Total Bilirubin 0.3 mg/dL (0.15-1.2); Total Protein 6.2 g/dL (6.6-8.7)
[2021-08-27 03:58] LABS: C Reactive Protein 41.8 mg/L (0.0-4.9)
[2021-08-27 04:15] LABS: Slide Review Slide Review Perform
[2021-08-27 04:28] LABS: ABG PCO2 46.7 mmHg (35-45); ABG PH Result 7.35 (7.35-7.45); Arterial Blood Gas Hematocrit 44.2 % (37-47); Base Excess ABG -0.2 mmol/L (-2.0-2.0); Blood Gas Allen Test Pos; Blood Gas Sample Site Radial, right; Blood Gas Sample Type Arterial; Blood Gas Tidal Volume 0.44; HCO3 ABG 25.9 mmol/L (22-26); Oxygen Device VENT; PO2 ABG 66.1 mmHg (80.0-100.0)
[2021-08-27] MEDS: budesonide 0.5 mg/2 mL Neb INHALATION ×2 (07:29→21:11)
--- NOTE | 2021-08-27 08:03 | US_ITS ---
NOTE: Report was unsigned for reason: Order was edited. Original Signature date and time was: 08/27/21 @1037 WS: [id number] RENAL ULTRASOUND URINARY BLADDER ULTRASOUND HISTORY: DEIRDRE COMPARISON: None available. TECHNIQUE: 2-D and color Doppler imaging of the kidney submitted. Right kidney: 9.0 cm x 5.9 cm x 3.9 cm. Normal echogenicity with no hydronephrosis or mass. Left kidney: 8.8 cm x 5.9 cm x 3.7 cm. Normal echogenicity with no hydronephrosis or mass. Aorta: Not visualized. Urinary Bladder: Nondistended urinary bladder. There is a Alva catheter in place. [facility] US/US renal BI with PV bladder IMPRESSION: 1. Normal renal ultrasound. 2. Nondistended urinary bladder.
--- NOTE | 2021-08-27 08:40 | PC.SOCIAL ---
IMM not updated IMM not updated as patient is intubated and not expected to DC in the next 24-48 hours.
[2021-08-27 09:14] LABS: Partial Thromboplastin Time 65.8 SECONDS (23.9-36.7)
--- NOTE | 2021-08-27 09:30 | PC.NURSE ---
Turned patient head to right in the swimming position along with turning patient with assistance with nursing staff and Rt.
[2021-08-27] MEDS: cholecalciferol (vitamin D3) 1,000 unit Tablet 4000 UNIT PO (09:40)
[2021-08-27] MEDS: montelukast sodium 10 mg Tablet PO (09:40)
[2021-08-27] MEDS: ferrous gluconate 324 mg Tablet PO (09:40)
[2021-08-27] MEDS: ascorbic acid 500 mg Tablet PO (09:40)
[2021-08-27] MEDS: linezolid premix 600 MG/300 ML PREMIX 300 MG IV (09:40)
[2021-08-27] MEDS: aspirin 81 mg EC Tablet PO (09:41)
[2021-08-27] MEDS: fluoxetine 20 mg Capsule PO (09:41)
[2021-08-27] MEDS: nystatin 100,000 unit/mL UDC 5 mL 100000 UNIT PO ×4 (09:42→21:07)
[2021-08-27] MEDS: zinc gluconate 50 mg Tablet PO (09:44)
[2021-08-27] MEDS: insulin lispro 100 unit/1 mL SUBCUT ×3 (10:09→21:11)
[2021-08-27 10:20] LABS: Glucose Point of Care 165 mg/dL (70-110)
[2021-08-27 13:22] LABS: Glucose Point of Care 178 mg/dL (70-110)
[2021-08-27 16:59] LABS: Glucose Point of Care 145 mg/dL (70-110)
[2021-08-27 17:37] LABS: Partial Thromboplastin Time 66.8 SECONDS (23.9-36.7)
--- NOTE | 2021-08-27 19:08 | PC.NURSE ---
SHift Summary: Uneventful shift. patient rested in bed throughout the day. Was proned at 1000, needs to be placed supine at 0200. Urine output today was 525 mL. Sedation requirements increased. Versed needed to be turned up to 2, and propofol from 45 to 55. Family has been updated.
[2021-08-27] MEDS: propofol 1,000 MG/100 ML INJ 36.09 MG IV ×2 (19:22→22:50)
[2021-08-27 20:51] LABS: Glucose Point of Care 149 mg/dL (70-110)
[2021-08-27] MEDS: pantoprazole 40 mg SDV IVP (21:06)
[2021-08-27] MEDS: dexamethasone 10 mg/mL INJ 6 MG IVP (21:07)
[2021-08-27] MEDS: linezolid premix 600 MG/300 ML PREMIX 150 MG IV (21:12)
--- NOTE | 2021-08-27 21:21 | PM.PN ---
Subjective Subjective: Intubated, sedated. Vitals/I&O/Wt Last Vital Signs Temp 97.8 F 08/27/21 20:00 Pulse 76 08/27/21 21:11 Resp 24 H 08/27/21 21:20 BP 155/74 08/27/21 20:00 Pulse Ox 95 08/27/21 21:20 08/27/21 08/27/21 08/27/21 06:59 14:59 22:59 Intake Total 378.698 / 1533.847 288.769 / 773.029 8892.557 / 1574.326 Output Total 1900 / 2295 400 / 400 125 / 525 Balance -1521.302 / -761.153 -111.231 / -249.610 4631.557 / 1049.326 Weight last 48 hrs Weight 112.491 kg Weight 122 kg Physical Exam Const: COMMON NORMALS: no acute distress GENERAL APPEARANCE: patient mechanically ventilated NUTRITIONAL APPEARANCE: obese HENMT: COMMON NORMALS: oropharynx normal Neck/C-Spine: COMMON NORMALS: no JVD Resp: COMMON NORMALS: clear to auscultation bilaterally AUSCULTATION: clear to auscultation bilaterally Cardio: COMMON NORMALS: no JVD, regular rhythm, S1 normal heart sound present, S2 normal heart sound present and No murmurs present (Cardio) RHYTHM: regular rhythm HEART SOUNDS: S1 normal heart sound present and S2 normal heart sound present GI: COMMON NORMALS: Normal to inspection, nondistended, normoactive bowel sounds present and Soft to palpation PALPATION: Yes Soft to palpation Extremity: COMMON NORMALS: no joint enlargement and no pedal edema Skin: COMMON NORMALS: no rashes or lesions noted GENERAL SKIN EXAM: no rashes or lesions noted Urinary Catheter Management: Alva: Cath Placed During This Visit: yes Reason for Continuing Indwelling Catheter: Accurate Measurement of Urinary Output in Critically Ill Patients Urinary Catheter Date of Insertion: 08/20/21 Urinary Catheter Time of Insertion: 22:30 Data : 08/27/21 02:50 08/27/21 02:50 Micro: Microbiology 08/22/21 10:50 Blood Culture - Final Blood NO GROWTH AFTER 5 DAYS 08/22/21 11:11 Blood Culture - Final Blood NO GROWTH AFTER 5 DAYS 08/26/21 09:57 Gram Stain - Final Sputum - Endotracheal Tube Aspirate Sputum Culture - Preliminary A&P Assessment and plan (1) Acute respiratory distress syndrome (ARDS) due to 2019 novel coronavirus: Additional proning. FiO2 requirement showing some improvement. Plateau pressure borderline, but has produced large amount of urine, is a negative balance, and with some worsening renal function, no clear signs of fluid overload hold off on additional Lasix for now. Reassess volume status and renal function. Hypoxic respiratory failure with severe COVID-19. Continue Decadron. Continue empiric antibiotics for now. Vancomycin changed to linezolid. Status post Actemra 08/20. Completed remdesivir course Continue heparin drip with severe D-dimer elevation Status: Acute (2) Bacteremia due to Staphylococcus epidermidis: With worsening renal function stop vancomycin. Change to linezolid. Staphylococcus epidermidis and current bacterium, 4/4 bottles from culture 08/20. No growth so far on repeat cultures. Rise in leukocytosis noted, possibly secondary to steroid. Was at risk of aspiration, for now continue Primaxin unchanged. Status: Acute (3) 2019 novel coronavirus-infected pneumonia (NCIP): Status: Acute (4) Acute encephalopathy: Last night with panic attack, severe anxiety. With improvement with ativan, precedex drip. Subsequently intubated. Received hydroxyzine last night, as well as Xanax, hydrocodone, history afternoon also morphine. Wean down Precedex drip. Hold off additional medications for now which could make her lethargic. baseline anxiety and PTSD Status: Acute (5) Restrictive lung disease secondary to obesity: Status: Acute (6) FREDERICK (obstructive sleep apnea): Was on BiPAP nightly. Status: Acute (7) Acute kidney injury superimposed on CKD: Improving gradually. Status: Acute Plan D-dimer elevated. Unfortunately cannot do CTA given DEIRDRE on CKD. Cannot do VQ scan. Lower limb Dopplers negative for DVT. Continue heparin drip. Reassess D-dimer. CTA or VQ scan once able to. Hyperkalemia: Resolved. Hypertension Type II diabetes mellitus: Insulin sliding scale at mild dose protocol. A1c 6.7. Does not seem to be on any hypoglycemics at home. Anxiety/PTSD: At home on Celexa and hydroxyzine. Has been on Xanax 0.5 every 8 hours as needed. High anion gap metabolic acidosis: Worsened again with DEIRDRE. Attestations Medical Necessity Statement*: Continue admission for assessment of management of hypoxic respiratory failure with severe COVID-19. Critical Care Time: The high probability of a clinically significant, sudden or life threatening deterioration of the patient's respiratory, renal system(s) required my full and direct attention, intervention and personal management. The critical care time is as shown. This time is in addition to time spent performing any reported procedures but includes the following: x Data and vital sign review and interpretation x Patient assessment, examination and intervention x Documentation x Medication orders and management Critical Care Time (min): 50 Coding Level of Care Code Acute Vacuum Forming Machine Operator for [facility] Fwd Diagnoses Acute respiratory distress syndrome (ARDS) due to 2019 novel coronavirus U07.1; J80 Bacteremia due to Staphylococcus epidermidis R78.81; B95.7 2019 novel coronavirus-infected pneumonia (NCIP) U07.1; J12.82 Acute encephalopathy G93.40 Restrictive lung disease secondary to obesity J98.4; E66.9 FREDERICK (obstructive sleep apnea) G47.33 Acute kidney injury superimposed on CKD N17.9; N18.9
[2021-08-28] VITALS (71 sets, daily range): BP systolic 90–173; BP diastolic 49–87; PULSE 60–93; RESP 24; TEMP 36.2–36.8; O2SAT 91–97
[2021-08-28] MEDS: ipratropium-albuterol 3 mL Neb INHALATION ×6 (00:28→19:50)
--- NOTE | 2021-08-28 01:18 | PC.NURSE ---
Flipped patient supine with support of nursing staff and RT. Tolerated well. No needs identified at this time
[2021-08-28] MEDS: propofol 1,000 MG/100 ML INJ 36.09 MG IV (02:34)
[2021-08-28 04:03] LABS: ABG PCO2 40.4 mmHg (35-45); ABG PH Result 7.41 (7.35-7.45); Arterial Blood Gas Hematocrit 33.8 % (37-47); Base Excess ABG 0.5 mmol/L (-2.0-2.0); Blood Gas Allen Test Pos; Blood Gas Sample Site Radial, right; Blood Gas Sample Type Arterial; Blood Gas Tidal Volume 0.44; HCO3 ABG 25.3 mmol/L (22-26); Oxygen Device VENT
[2021-08-28] MEDS: cisatracurium 100 MG in sodium chloride 0.9% 50 ML 10.83 MG IV ×2 (04:10→12:32)
[2021-08-28 04:14] LABS: Urine Creatinine 14 mg/dL (28-217)
[2021-08-28 04:21] LABS: Basophils # 0.1 10^3/uL (0.0-0.1); Basophils % 0.3 %; Eosinophils # 0.2 10^3/uL (0.0-0.8); Eosinophils % 1.1 %; Hematocrit 33.4 % (37.0-47.0); Hemoglobin 10.8 g/dL (11.5-15.3); Lymphocytes # 1.1 10^3/uL (0.8-4.8); Lymphocytes % 6.2 %; Mean Corpuscular HGB Conc 32.3 g/dL (30.0-36.0); Mean Corpuscular Hemoglobin 28.8 pg (28.0-34.0); Mean Corpuscular Volume 89.1 fl (81-99); Mean Platelet Volume 10.4 fL (7.4-10.4); Monocytes # 0.4 10^3/uL (0.2-0.9); Monocytes % 2.2 %; Neutrophils # 13.98 10^3/uL (1.8-7.7); Neutrophils % 81.6 %; Nucleated Red Blood Cells % 0.2 %; Platelet Count 340 10^3/cmm (130-400); Red Blood Count 3.75 10^6/uL (4.1-5.3); Red Cell Distribution Width 13.9 % (12.1-15.1); White Blood Count 17.1 10^3/uL (4.0-10.0)
[2021-08-28 04:31] LABS: Partial Thromboplastin Time 52.8 SECONDS (23.9-36.7)
[2021-08-28 04:33] LABS: D Dimer 2.89 ug/mIFEU (0-0.59)
[2021-08-28 04:36] LABS: Alanine Aminotransferase 25 U/L (0-33); Albumin Level 3.1 g/dL (3.5-5.2); Alkaline Phosphatase 95 IU/L (35-105); Aspartate Amino Transferase 44 U/L (0-32); Blood Urea Nitrogen 66 mg/dL (8-23); Calcium 8.6 mg/dL (8.5-10.5); Carbon Dioxide 24 mmol/L (22-29); Chloride 100 mmol/L (98-107); Globulin 2.3 g/dL (1.3-4.6); Glomerular Filtration Rate 30.2 mL/min (90-130); Glucose 207 mg/dL (65-115); Osmolality Calculated 311 mOsm/kg (285-295); Sodium 138 mmol/L (136-145); Total Bilirubin 0.3 mg/dL (0.15-1.2); Total Protein 5.4 g/dL (6.6-8.7)
[2021-08-28 04:48] LABS: Anion Gap 17.5 (5-19); Potassium 3.5 mmol/L (3.5-5.1)
[2021-08-28 05:00] LABS: Urea Nitrogen,Urine Random 182 mg/dL
[2021-08-28 05:33] LABS: Slide Review Slide Review Perform
[2021-08-28] MEDS: propofol 1,000 MG/100 ML INJ 28.87 MG IV ×4 (05:46→18:26)
[2021-08-28] MEDS: budesonide 0.5 mg/2 mL Neb INHALATION ×2 (08:28→19:50)
[2021-08-28 08:51] LABS: Glucose Point of Care 183 mg/dL (70-110)
[2021-08-28] MEDS: fluoxetine 20 mg Capsule PO (08:58)
[2021-08-28] MEDS: aspirin 81 mg EC Tablet PO (08:58)
[2021-08-28] MEDS: montelukast sodium 10 mg Tablet PO (08:58)
[2021-08-28] MEDS: ascorbic acid 500 mg Tablet PO (08:58)
[2021-08-28] MEDS: cholecalciferol (vitamin D3) 1,000 unit Tablet 4000 UNIT PO (08:58)
[2021-08-28] MEDS: zinc gluconate 50 mg Tablet PO (08:58)
[2021-08-28] MEDS: nystatin 100,000 unit/mL UDC 5 mL 100000 UNIT PO ×4 (08:58→21:10)
[2021-08-28] MEDS: ferrous gluconate 324 mg Tablet PO ×2 (08:58→18:26)
[2021-08-28] MEDS: docusate sodium 100 mg Capsule PO ×2 (08:58→18:26)
[2021-08-28] MEDS: lidocaine 5% Patch 1 PATCH TOPICAL (10:07)
[2021-08-28] MEDS: insulin lispro 100 unit/1 mL SUBCUT ×4 (10:07→21:22)
[2021-08-28] MEDS: linezolid premix 600 MG/300 ML PREMIX 150 MG IV ×2 (10:07→20:50)
[2021-08-28 11:14] LABS: Glucose Point of Care 197 mg/dL (70-110)
[2021-08-28 12:42] LABS: Partial Thromboplastin Time 64.8 SECONDS (23.9-36.7)
[2021-08-28 16:24] LABS: Glucose Point of Care 161 mg/dL (70-110)
--- NOTE | 2021-08-28 17:56 | P.PN_ITS ---
Subjective Subjective: Intubated, sedated. Vitals/I&O/Wt Last Vital Signs Temp 98.2 F 08/28/21 14:01 Pulse 68 08/28/21 16:00 Resp 24 H 08/28/21 16:00 BP 118/57 08/28/21 16:00 Pulse Ox 93 08/28/21 16:00 08/28/21 08/28/21 08/28/21 06:59 14:59 22:59 Intake Total 1344.217 / 3031.543 824.961 / 824.961 Output Total 700 / 1225 Balance 644.217 / 1806.543 824.961 / 824.961 Weight last 48 hrs Weight 116.573 kg Weight 112.491 kg Physical Exam Const: COMMON NORMALS: no acute distress GENERAL APPEARANCE: patient mechanically ventilated NUTRITIONAL APPEARANCE: obese HENMT: COMMON NORMALS: oropharynx normal Neck/C-Spine: COMMON NORMALS: no JVD Resp: COMMON NORMALS: clear to auscultation bilaterally AUSCULTATION: clear to auscultation bilaterally Cardio: COMMON NORMALS: no JVD, regular rhythm, S1 normal heart sound present, S2 normal heart sound present and No murmurs present (Cardio) RHYTHM: regular rhythm HEART SOUNDS: S1 normal heart sound present and S2 normal heart sound present GI: COMMON NORMALS: Normal to inspection, nondistended, normoactive bowel sounds present and Soft to palpation PALPATION: Yes Soft to palpation Extremity: COMMON NORMALS: no joint enlargement and no pedal edema Skin: COMMON NORMALS: no rashes or lesions noted GENERAL SKIN EXAM: no rashes or lesions noted Urinary Catheter Management: Alva: Cath Placed During This Visit: yes Reason for Continuing Indwelling Catheter: Accurate Measurement of Urinary Output in Critically Ill Patients Urinary Catheter Date of Insertion: 08/20/21 Urinary Catheter Time of Insertion: 22:30 Data : 08/28/21 04:07 08/28/21 04:07 Micro: Microbiology 08/26/21 09:57 Gram Stain - Final Sputum - Endotracheal Tube Aspirate Sputum Culture - Final A&P Assessment and plan (1) Acute respiratory distress syndrome (ARDS) due to 2019 novel coronavirus: Prone again tonight. FiO2 requirement gradually showing improvement. Noncompliance improving. Hold further Lasix. Hypoxic respiratory failure with severe COVID-19. Continue Decadron. Continue empiric antibiotics for now. Vancomycin changed to linezolid. Status post Actemra 08/20. Completed remdesivir course Continue heparin drip with severe D-dimer elevation Status: Acute (2) Bacteremia due to Staphylococcus epidermidis: With worsening renal function stopped vancomycin. Changed to linezolid. Staphylococcus epidermidis and current bacterium, 4/4 bottles from culture 08/20. No growth so far on repeat cultures. Rise in leukocytosis noted, possibly secondary to steroid. Was at risk of aspiration, for now continue Primaxin unchanged. Status: Acute (3) 2019 novel coronavirus-infected pneumonia (NCIP): Status: Acute (4) Acute encephalopathy: Preintubation severe anxiety. baseline anxiety and PTSD Status: Acute (5) Restrictive lung disease secondary to obesity: Status: Acute (6) FREDERICK (obstructive sleep apnea): Was on BiPAP nightly. Status: Acute (7) Acute kidney injury superimposed on CKD: Improving gradually. Status: Acute Plan D-dimer elevated. Unfortunately cannot do CTA given DEIRDRE on CKD. Cannot do VQ scan. Lower limb Dopplers negative for DVT. Continue heparin drip. Reassess D-dimer. CTA or VQ scan once able to. Hyperkalemia: Resolved. Hypertension Type II diabetes mellitus: Insulin sliding scale at mild dose protocol. A1c 6.7. Does not seem to be on any hypoglycemics at home. Anxiety/PTSD: At home on Celexa and hydroxyzine. Has been on Xanax 0.5 every 8 hours as needed. High anion gap metabolic acidosis: Worsened again with DEIRDRE. Attestations Medical Necessity Statement*: Continue admission for hypoxic respite failure with severe COVID-19. Critical Care Time: The high probability of a clinically significant, sudden or life threatening deterioration of the patient's respiratory system(s) required my full and direct attention, intervention and personal management. The critical care time is as shown. This time is in addition to time spent performing any reported procedures but includes the following: x Data and vital sign review and interpretation x Patient assessment, examination and intervention x Documentation x Medication orders and management 35 minutes critical care time. Coding Level of Care Code Acute Second Language Tutor for [facility] Diagnoses Acute respiratory distress syndrome (ARDS) due to 2019 novel coronavirus U07.1; J80 Bacteremia due to Staphylococcus epidermidis R78.81; B95.7 2019 novel coronavirus-infected pneumonia (NCIP) U07.1; J12.82 Acute encephalopathy G93.40 Restrictive lung disease secondary to obesity J98.4; E66.9 FREDERICK (obstructive sleep apnea) G47.33 Acute kidney injury superimposed on CKD N17.9; N18.9
--- NOTE | 2021-08-28 18:20 | PC.NURSE ---
BIS 0800 42 0900 40 1000 38 TOF 3/4. Pt compliant with vent. 1100 38 1200 40 1300 38 Pt remains compliant with vent. 1400 28 1500 30 Pt continues to be compliant with vent. 1600 44 1700 52 1800 56 Pt compliant with vent.
[2021-08-28] MEDS: heparin drip 25,000 UNIT/500 ML PREMIX 14 UNIT IV (18:28)
--- NOTE | 2021-08-28 19:20 | PC.NURSE ---
Shift Note Pt remains sedated, paralyzed and intubated. Proning started at 1020. She is tolerating well. Fentanyl, Nimbex, Precedex and heparin are infusing, see MAR for rates and changes. came in and looked at her through the window, updats given. Urine ouput of 750ml this shift. Frequent safety and comfort rounds continue. Orders and/or nursing care completed as indicated. Patient monitored for response to intervention and treatment(s). Education provided includes Nimbex, proning, oral care and heparin. Patient's patient care representative verbaized understanding of mediations ongoing care and progress. Will continue to monitor.
[2021-08-28 19:59] LABS: Partial Thromboplastin Time 68.2 SECONDS (23.9-36.7)
--- NOTE | 2021-08-28 20:13 | PC.NURSE ---
TOF 0/4, but pt breathing over the vent. Nimbex increased.
[2021-08-28] MEDS: dexamethasone 10 mg/mL INJ 6 MG IVP (20:49)
[2021-08-28] MEDS: pantoprazole 40 mg SDV IVP (20:49)
[2021-08-28 21:20] LABS: Glucose Point of Care 150 mg/dL (70-110)
[2021-08-28] MEDS: propofol 1,000 MG/100 ML INJ 43.31 MG IV (21:22)
[2021-08-28] MEDS: cisatracurium 100 MG in sodium chloride 0.9% 50 ML 18.05 MG IV (21:25)
--- NOTE | 2021-08-28 21:37 | PC.NURSE ---
TOF 4/4. Nimbex increased.
[2021-08-29] VITALS (66 sets, daily range): BP systolic 98–170; BP diastolic 43–69; PULSE 51–90; RESP 24–25; TEMP 36.2–37; O2SAT 84–97
[2021-08-29] MEDS: propofol 1,000 MG/100 ML INJ 43.31 MG IV ×5 (00:01→09:29)
--- NOTE | 2021-08-29 00:25 | PC.NURSE ---
TOF 2/4
[2021-08-29 02:20] LABS: Basophils # 0.1 10^3/uL (0.0-0.1); Basophils % 0.4 %; Eosinophils # 0.2 10^3/uL (0.0-0.8); Eosinophils % 1.1 %; Hematocrit 31.6 % (37.0-47.0); Hemoglobin 10.4 g/dL (11.5-15.3); Lymphocytes # 1.5 10^3/uL (0.8-4.8); Lymphocytes % 7.8 %; Mean Corpuscular HGB Conc 32.9 g/dL (30.0-36.0); Mean Corpuscular Hemoglobin 29.6 pg (28.0-34.0); Mean Platelet Volume 10.7 fL (7.4-10.4); Monocytes # 0.5 10^3/uL (0.2-0.9); Monocytes % 2.6 %; Neutrophils # 15.29 10^3/uL (1.8-7.7); Neutrophils % 77.9 %; Nucleated Red Blood Cells # 0.1 /100WBC; Nucleated Red Blood Cells % 0.4 %; Platelet Count 326 10^3/cmm (130-400); Red Blood Count 3.51 10^6/uL (4.1-5.3); Red Cell Distribution Width 14.1 % (12.1-15.1); White Blood Count 19.7 10^3/uL (4.0-10.0)
[2021-08-29 02:30] LABS: D Dimer 1.82 ug/mIFEU (0-0.59)
[2021-08-29 02:39] LABS: Alanine Aminotransferase 25 U/L (0-33); Albumin Level 3.3 g/dL (3.5-5.2); Alkaline Phosphatase 84 IU/L (35-105); Anion Gap 19.3 (5-19); Aspartate Amino Transferase 46 U/L (0-32); Blood Urea Nitrogen 78 mg/dL (8-23); Calcium 9.1 mg/dL (8.5-10.5); Carbon Dioxide 23 mmol/L (22-29); Chloride 96 mmol/L (98-107); Globulin 2.3 g/dL (1.3-4.6); Glomerular Filtration Rate 30.2 mL/min (90-130); Glucose 209 mg/dL (65-115); Osmolality Calculated 309 mOsm/kg (285-295); Potassium 3.3 mmol/L (3.5-5.1); Sodium 135 mmol/L (136-145); Total Bilirubin 0.3 mg/dL (0.15-1.2); Total Protein 5.6 g/dL (6.6-8.7)
[2021-08-29 03:02] LABS: Partial Thromboplastin Time 75.9 SECONDS (23.9-36.7)
[2021-08-29 03:08] LABS: Slide Review Slide Review Perform
[2021-08-29] MEDS: ipratropium-albuterol 3 mL Neb INHALATION ×6 (03:08→20:10)
[2021-08-29] MEDS: cisatracurium 100 MG in sodium chloride 0.9% 50 ML 14.44 MG IV (03:49)
--- NOTE | 2021-08-29 03:50 | PC.NURSE ---
Pt supinated with assistance of RT and nursing. 2 gold rings with clear stones and 1 pair of gold earings with clear stones placed in biohazard bag in pt's belongings bag per charge nurse instructions.
[2021-08-29 05:40] LABS: ABG PCO2 39.8 mmHg (35-45); ABG PH Result 7.41 (7.35-7.45); Arterial Blood Gas Hematocrit 38.4 % (37-47); Base Excess ABG 0.6 mmol/L (-2.0-2.0); Blood Gas Allen Test Pos; Blood Gas Operator Identificat JB; Blood Gas Sample Site Radial, right; Blood Gas Sample Type Arterial; Blood Gas Tidal Volume 0.45; HCO3 ABG 25.2 mmol/L (22-26); Oxygen Device VENT; PO2 ABG 81.3 mmHg (80.0-100.0)
[2021-08-29 07:32] LABS: Glucose Point of Care 225 mg/dL (70-110)
[2021-08-29] MEDS: budesonide 0.5 mg/2 mL Neb INHALATION ×2 (07:52→20:10)
[2021-08-29] MEDS: fluoxetine 20 mg Capsule PO (08:31)
[2021-08-29] MEDS: ascorbic acid 500 mg Tablet PO (08:31)
[2021-08-29] MEDS: zinc gluconate 50 mg Tablet PO (08:31)
[2021-08-29] MEDS: aspirin 81 mg EC Tablet PO (08:31)
[2021-08-29] MEDS: ferrous gluconate 324 mg Tablet PO ×2 (08:31→17:56)
[2021-08-29] MEDS: cholecalciferol (vitamin D3) 1,000 unit Tablet 4000 UNIT PO (08:31)
[2021-08-29] MEDS: insulin lispro 100 unit/1 mL SUBCUT ×3 (08:31→20:53)
[2021-08-29] MEDS: montelukast sodium 10 mg Tablet PO (08:31)
[2021-08-29] MEDS: linezolid premix 600 MG/300 ML PREMIX 300 MG IV ×2 (08:32→20:53)
[2021-08-29] MEDS: nystatin 100,000 unit/mL UDC 5 mL 100000 UNIT PO ×2 (08:33→20:54)
[2021-08-29] MEDS: potassium chloride oral liq 20 mEq/15 mL UDC OG-TUBE (08:41)
[2021-08-29] MEDS: enoxaparin 120 mg/0.8 mL Syringe 115 MG SUBCUT ×2 (08:44→20:53)
--- NOTE | 2021-08-29 11:23 | PC.SOCIAL ---
IMM not Updated IMM not updated with pt. Pt is not expected to d/c w/n the next 24-48hrs.
[2021-08-29] MEDS: propofol 1,000 MG/100 ML INJ 28.87 MG IV (12:02)
[2021-08-29] MEDS: propofol 1,000 MG/100 ML INJ 14.44 MG IV ×2 (16:23→22:58)
[2021-08-29 17:48] LABS: Glucose Point of Care 156 mg/dL (70-110)
[2021-08-29] MEDS: lactulose oral liq 20 gm/30 mL UDC 10 GM PO (17:57)
[2021-08-29 18:03] LABS: Glucose Point of Care 140 mg/dL (70-110)
--- NOTE | 2021-08-29 20:17 | P.PN_ITS ---
Subjective Subjective: Intubated, sedated. Vitals/I&O/Wt Last Vital Signs Temp 98.6 F 08/29/21 16:30 Pulse 63 08/29/21 20:06 Resp 24 H 08/29/21 20:08 BP 138/56 08/29/21 18:31 Pulse Ox 91 08/29/21 20:08 08/29/21 08/29/21 08/29/21 06:59 14:59 22:59 Intake Total 1167.560 / 2590.219 895.261 / 895.261 266.488 / 1161.749 Output Total 700 / 1450 650 / 650 Balance 467.560 / 1140.219 895.261 / 895.261 -383.512 / 511.749 Weight last 48 hrs Weight 115.258 kg Weight 116.573 kg Physical Exam Const: COMMON NORMALS: no acute distress GENERAL APPEARANCE: patient mechanically ventilated NUTRITIONAL APPEARANCE: obese HENMT: COMMON NORMALS: oropharynx normal Neck/C-Spine: COMMON NORMALS: no JVD Resp: COMMON NORMALS: clear to auscultation bilaterally AUSCULTATION: clear to auscultation bilaterally Cardio: COMMON NORMALS: no JVD, regular rhythm, S1 normal heart sound present, S2 normal heart sound present and No murmurs present (Cardio) RHYTHM: regular rhythm HEART SOUNDS: S1 normal heart sound present and S2 normal heart sound present GI: COMMON NORMALS: Soft to palpation PALPATION: Yes Soft to palpation Extremity: COMMON NORMALS: no joint enlargement and no pedal edema Skin: COMMON NORMALS: no rashes or lesions noted GENERAL SKIN EXAM: no rashes or lesions noted Urinary Catheter Management: Alva: Cath Placed During This Visit: yes Reason for Continuing Indwelling Catheter: Accurate Measurement of Urinary Output in Critically Ill Patients Urinary Catheter Date of Insertion: 08/20/21 Urinary Catheter Time of Insertion: 22:30 Data : 08/29/21 01:38 08/29/21 01:38 Micro: Microbiology 08/29/21 13:10 Gram Stain - Final Sputum - Endotracheal Tube Aspirate A&P Assessment and plan (1) Acute respiratory distress syndrome (ARDS) due to 2019 novel coronavirus: FiO2 has been improving, down to 45% this morning after supination. Weaned off paralytic, weaning down sedation. Slight worsening of FiO2 to 55%. Waking up somewhat. Continue to wean sedation, assess mental status, any signs of respiratory distress, if doing well consider weaning trial. Otherwise may need further proning. Repeat chest x-ray. Hypoxic respiratory failure with severe COVID-19. Continue Decadron. Continue empiric antibiotics for now. Vancomycin changed to linezolid. Status post Actemra 08/20. Completed remdesivir course Continue heparin drip with severe D-dimer elevation Hold off TPN for now until if needed at closer to 7 days, as is also in positive fluid balance, with risk of fluid overload Dietitian consult appreciated -all our tube feeds contain milk-based or products. Status: Acute (2) Bacteremia due to Staphylococcus epidermidis: With worsening renal function stopped vancomycin. Changed to linezolid. Staphylococcus epidermidis and current bacterium, 4/4 bottles from culture 08/20. No growth so far on repeat cultures. Rise in leukocytosis noted, possibly secondary to steroid. Was at risk of aspiration, for now continue Primaxin unchanged. Status: Acute (3) 2019 novel coronavirus-infected pneumonia (NCIP): Status: Acute (4) Acute encephalopathy: Preintubation severe anxiety. baseline anxiety and PTSD Status: Acute (5) Restrictive lung disease secondary to obesity: Status: Acute (6) FREDERICK (obstructive sleep apnea): Was on BiPAP nightly. Status: Acute (7) Acute kidney injury superimposed on CKD: Showed improvement. Appears to be close to baseline creatinine level with CKD. Status: Acute Plan D-dimer elevated. Switch to Lovenox given stabilization of renal function. Unfortunately cannot do CTA given DEIRDRE on CKD. Cannot do VQ scan. Lower limb Dopplers negative for DVT. Reassess D-dimer. CTA or VQ scan once able to. Hyperkalemia: Resolved. Hypertension Type II diabetes mellitus: Insulin sliding scale at mild dose protocol. A1c 6.7. Does not seem to be on any hypoglycemics at home. Anxiety/PTSD: At home on Celexa and hydroxyzine. Has been on Xanax 0.5 every 8 hours as needed. High anion gap metabolic acidosis: Worsened again with DEIRDRE. Attestations Medical Necessity Statement*: Continue admission for hypoxic respiratory failure with severe COVID-19. Coding Level of Care Code Acute Master Automotive Glass Technician for [facility] Diagnoses Acute respiratory distress syndrome (ARDS) due to 2019 novel coronavirus U07.1; J80 Bacteremia due to Staphylococcus epidermidis R78.81; B95.7 2019 novel coronavirus-infected pneumonia (NCIP) U07.1; J12.82 Acute encephalopathy G93.40 Restrictive lung disease secondary to obesity J98.4; E66.9 FREDERICK (obstructive sleep apnea) G47.33 Acute kidney injury superimposed on CKD N17.9; N18.9
[2021-08-29 20:49] LABS: Glucose Point of Care 145 mg/dL (70-110)
[2021-08-29] MEDS: dexamethasone 10 mg/mL INJ 6 MG IVP (20:52)
[2021-08-29] MEDS: pantoprazole 40 mg SDV IVP (20:54)
[2021-08-30] VITALS (65 sets, daily range): BP systolic 103–144; BP diastolic 37–61; PULSE 59–96; RESP 24–26; TEMP 36.6–37.2; O2SAT 88–96
[2021-08-30] MEDS: ipratropium-albuterol 3 mL Neb INHALATION ×7 (00:22→23:23)
[2021-08-30 03:08] LABS: Vancomycin Trough 8.7 ug/mL (10-15)
[2021-08-30] MEDS: propofol 1,000 MG/100 ML INJ 14.44 MG IV ×2 (04:49→11:05)
[2021-08-30 05:06] LABS: Basophils # 0.1 10^3/uL (0.0-0.1); Basophils % 0.4 %; Eosinophils # 0.1 10^3/uL (0.0-0.8); Eosinophils % 0.8 %; Hematocrit 28.7 % (37.0-47.0); Hemoglobin 9.2 g/dL (11.5-15.3); Lymphocytes # 1.9 10^3/uL (0.8-4.8); Lymphocytes % 10.4 %; Mean Corpuscular HGB Conc 32.1 g/dL (30.0-36.0); Mean Corpuscular Hemoglobin 29.1 pg (28.0-34.0); Mean Corpuscular Volume 90.8 fl (81-99); Mean Platelet Volume 10.7 fL (7.4-10.4); Monocytes # 0.6 10^3/uL (0.2-0.9); Monocytes % 3.3 %; Neutrophils % 76.1 %; Nucleated Red Blood Cells # 0.1 /100WBC; Nucleated Red Blood Cells % 0.3 %; Platelet Count 292 10^3/cmm (130-400); Red Blood Count 3.16 10^6/uL (4.1-5.3); Red Cell Distribution Width 14.2 % (12.1-15.1); White Blood Count 17.9 10^3/uL (4.0-10.0)
[2021-08-30 05:21] LABS: D Dimer 1.77 ug/mIFEU (0-0.59)
[2021-08-30 05:33] LABS: Alanine Aminotransferase 37 U/L (0-33); Albumin Level 3.2 g/dL (3.5-5.2); Alkaline Phosphatase 78 IU/L (35-105); Anion Gap 15.4 (5-19); Aspartate Amino Transferase 65 U/L (0-32); Blood Urea Nitrogen 66 mg/dL (8-23); Calcium 9.1 mg/dL (8.5-10.5); Carbon Dioxide 24 mmol/L (22-29); Chloride 101 mmol/L (98-107); Globulin 2.2 g/dL (1.3-4.6); Glomerular Filtration Rate 41.1 mL/min (90-130); Glucose 195 mg/dL (65-115); Osmolality Calculated 308 mOsm/kg (285-295); Potassium 3.4 mmol/L (3.5-5.1); Sodium 137 mmol/L (136-145); Total Bilirubin 0.3 mg/dL (0.15-1.2); Total Protein 5.4 g/dL (6.6-8.7)
--- NOTE | 2021-08-30 05:50 | PC.NURSE ---
Shift Note Frequent safety and comfort rounds continue. Orders and/or nursing care completed as indicated. Patient monitored for response to intervention and treatment(s). Patient remains intubated and sedated. Patient will open her eyes and moves all extremities, but will not follow commands. Full bath and linen change performed for the patient. Patient tolerated well. All vital signs have remained stable throughout the shift. Will continue to monitor.
--- NOTE | 2021-08-30 06:00 | XRR_ITS ---
PROCEDURE INFORMATION: Exam: XR Chest Exam date and time: 08/30/2021 6:00 AM Age: 66 years old Clinical indication: Shortness of breath; Prior surgery; Surgery type: Chest port; Patient HX: F/u for covid pneumonia. Intubated. ; Additional info: Hypoxia TECHNIQUE: Imaging protocol: XR of the chest. Views: 1 view. COMPARISON: CR XR chest 1V portable [id number] 08/26/2021 5:13 AM FINDINGS: Tubes, catheters and devices: An endotracheal tube is placed with its tip 2.3 cm from the patrick. A nasogastric tube is present with its tip coiled in the proximal stomach. A right internal jugular vein central venous line is placed with its tip at the level of the superior vena cava. EKG leads overlie the chest. Lungs: Diffuse patchy bilateral ground-glass opacities are present similar to those seen on 08/26/2021 compatible with a bilateral interstitial pneumonia. Pleural spaces: Unremarkable. No pleural effusion. No pneumothorax. Heart/Mediastinum: Unremarkable. No cardiomegaly. Bones/joints: Unremarkable. XR/XR chest 1V portable [id number] IMPRESSION: 1. Endotracheal tube tip 2.3 cm from the patrick. 2. Nasogastric tube coiled in proximal stomach 3. Right internal jugular vein central venous line placed with tip at the level of the superior vena cava. 4. Diffuse patchy bilateral ground-glass opacities are again seen similar to those present on 08/26/2021 compatible with a bilateral interstitial pneumonia.
[2021-08-30 06:11] LABS: Slide Review Slide Review Perform
[2021-08-30 07:22] LABS: Glucose Point of Care 180 mg/dL (70-110)
[2021-08-30] MEDS: ferrous gluconate 324 mg Tablet PO ×2 (08:02→17:12)
[2021-08-30] MEDS: insulin lispro 100 unit/1 mL SUBCUT ×2 (08:02→11:09)
[2021-08-30] MEDS: fluoxetine 20 mg Capsule PO (08:02)
[2021-08-30] MEDS: aspirin 81 mg EC Tablet PO (08:03)
[2021-08-30] MEDS: zinc gluconate 50 mg Tablet PO (08:03)
[2021-08-30] MEDS: docusate sodium 100 mg Capsule PO ×2 (08:03→17:12)
[2021-08-30] MEDS: ascorbic acid 500 mg Tablet PO (08:03)
[2021-08-30] MEDS: montelukast sodium 10 mg Tablet PO (08:03)
[2021-08-30] MEDS: nystatin 100,000 unit/mL UDC 5 mL 100000 UNIT PO ×3 (08:03→17:11)
[2021-08-30] MEDS: enoxaparin 120 mg/0.8 mL Syringe 115 MG SUBCUT ×2 (08:04→21:39)
[2021-08-30] MEDS: linezolid premix 600 MG/300 ML PREMIX 300 MG IV ×2 (08:05→21:39)
[2021-08-30] MEDS: budesonide 0.5 mg/2 mL Neb INHALATION ×2 (08:16→19:47)
[2021-08-30] MEDS: potassium chloride oral liq 20 mEq/15 mL UDC 40 MEQ OG-TUBE (08:17)
[2021-08-30] MEDS: lidocaine 5% Patch 1 PATCH TOPICAL (08:18)
[2021-08-30] MEDS: cholecalciferol (vitamin D3) 1,000 unit Tablet 4000 UNIT PO (08:42)
[2021-08-30 11:11] LABS: Glucose Point of Care 168 mg/dL (70-110)
--- NOTE | 2021-08-30 11:43 | PC.RESP ---
RT Shift Note Frequent safety and respiratory rounds continue. Orders completed as indicated. Patient monitored pre and post treatments throughout shift. Patient [Did] tolerate treatments appropriately. Condition [.DidNotChange]. Patient and/or accounts payable representative educated on respiratory treatment and medications. Patient and/or accounts payable representative [unable to comprehend]. Will continue to monitor patient progress.
--- NOTE | 2021-08-30 15:56 | P.PN_ITS ---
Subjective Subjective: Waking up in bed, opens her eyes, appears to look around, confused, not answering questions or following commands. Lethargic, falls back asleep shortly after. Vitals/I&O/Wt Last Vital Signs Temp 98 F 08/30/21 14:01 Pulse 82 08/30/21 15:22 Resp 24 H 08/30/21 15:26 BP 136/45 08/30/21 14:01 Pulse Ox 94 08/30/21 15:26 08/30/21 08/30/21 08/30/21 06:59 14:59 22:59 Intake Total 284.474 / 1861.286 810.491 / 810.491 Output Total 1000 / 1000 Balance 284.474 / 911.286 -189.509 / -189.509 Weight last 48 hrs Weight 116 kg Weight 115.258 kg Physical Exam Const: COMMON NORMALS: no acute distress GENERAL APPEARANCE: patient mechanically ventilated NUTRITIONAL APPEARANCE: obese HENMT: COMMON NORMALS: oropharynx normal Neck/C-Spine: COMMON NORMALS: no JVD Resp: COMMON NORMALS: clear to auscultation bilaterally AUSCULTATION: clear to auscultation bilaterally Cardio: COMMON NORMALS: no JVD, regular rhythm, S1 normal heart sound present, S2 normal heart sound present and No murmurs present (Cardio) RHYTHM: regular rhythm HEART SOUNDS: S1 normal heart sound present and S2 normal heart sound present GI: COMMON NORMALS: Soft to palpation PALPATION: Yes Soft to palpation Extremity: COMMON NORMALS: no joint enlargement and no pedal edema Neuro: COMMON NORMALS: moves all extremities Skin: COMMON NORMALS: no rashes or lesions noted GENERAL SKIN EXAM: no r ashes or lesions noted Urinary Catheter Management: Alva: Cath Placed During This Visit: yes Reason for Continuing Indwelling Catheter: Accurate Measurement of Urinary Output in Critically Ill Patients Urinary Catheter Date of Insertion: 08/20/21 Urinary Catheter Time of Insertion: 22:30 Data : 08/30/21 04:20 08/30/21 04:20 Micro: Microbiology 08/29/21 13:10 Gram Stain - Final Sputum - Endotracheal Tube Aspirate A&P Assessment and plan (1) Acute respiratory distress syndrome (ARDS) due to 2019 novel coronavirus: This morning for me she is waking up, but does not answer questions, follow commands. Falls back asleep. Continue to wean down sedation, assess mental status, any signs of respiratory distress, if doing well consider breathing trial, possible extubation. If oxygenation worsening may need further proning. Discussed with her . Hypoxic respiratory failure with severe COVID-19. Continue Decadron. Continue empiric antibiotics for now. Vancomycin changed to linezolid. Status post Actemra 08/20. Completed remdesivir course Continue heparin drip with severe D-dimer elevation Hold off TPN for now until if needed at closer to 7 days, as is also in positive fluid balance, with risk of fluid overload Dietitian consult appreciated -all our tube feeds contain milk-based or products. Status: Acute (2) Bacteremia due to Staphylococcus epidermidis: With worsening renal function stopped vancomycin. Changed to linezolid. Staphylococcus epidermidis and current bacterium, 4/4 bottles from culture 08/20. No growth so far on repeat cultures. Rise in leukocytosis noted, possibly secondary to steroid. Was at risk of aspiration, for now continue Primaxin unchanged. Status: Acute (3) 2019 novel coronavirus-infected pneumonia (NCIP): Status: Acute (4) Acute encephalopathy: Preintubation severe anxiety. baseline anxiety and PTSD Status: Acute (5) Restrictive lung disease secondary to obesity: Status: Acute (6) FREDERICK (obstructive sleep apnea): Was on BiPAP nightly. Status: Acute (7) Acute kidney injury superimposed on CKD: Showed improvement. Appears to be close to baseline creatinine level with CKD. Status: Acute Plan D-dimer elevated. Switch to Lovenox given stabilization of renal function. Unfortunately cannot do CTA given DEIRDRE on CKD. Cannot do VQ scan. Lower limb Dopplers negative for DVT. Reassess D-dimer. CTA or VQ scan once able to. Hyperkalemia: Resolved. Hypertension Type II diabetes mellitus: Insulin sliding scale at mild dose protocol. A1c 6.7. Does not seem to be on any hypoglycemics at home. Anxiety/PTSD: At home on Celexa and hydroxyzine. Has been on Xanax 0.5 every 8 hours as needed. High anion gap metabolic acidosis: Worsened again with DEIRDRE. Attestations Medical Necessity Statement*: Continue admission for assessment and management of hypoxic respiratory failure with severe COVID-19. Coding Level of Care Code Acute Toe Closing Machine Tender for [facility] Diagnoses Acute respiratory distress syndrome (ARDS) due to 2019 novel coronavirus U07.1; J80 Bacteremia due to Staphylococcus epidermidis R78.81; B95.7 2019 novel coronavirus-infected pneumonia (NCIP) U07.1; J12.82 Acute encephalopathy G93.40 Restrictive lung disease secondary to obesity J98.4; E66.9 FREDERICK (obstructive sleep apnea) G47.33 Acute kidney injury superimposed on CKD N17.9; N18.9
--- NOTE | 2021-08-30 16:55 | NUR.SHIFT ---
Shift Note Frequent safety and comfort rounds continue. Orders and/or nursing care completed as indicated. Patient monitored for response to intervention and weaning . Education provided includes[]. here to visit... did give rundown of overall today Will continue to monitor.
[2021-08-30 17:36] LABS: Glucose Point of Care 115 mg/dL (70-110)
[2021-08-30] MEDS: dexamethasone 10 mg/mL INJ 6 MG IVP (21:39)
[2021-08-30] MEDS: pantoprazole 40 mg SDV IVP (21:40)
[2021-08-30 21:46] LABS: Glucose Point of Care 114 mg/dL (70-110)
[2021-08-31] VITALS (46 sets, daily range): BP systolic 111–202; BP diastolic 41–74; PULSE 69–105; RESP 24–39; TEMP 36.5–38.8; O2SAT 89–95
[2021-08-31] MEDS: propofol 1,000 MG/100 ML INJ 14.44 MG IV ×2 (00:23→04:29)
[2021-08-31] MEDS: ipratropium-albuterol 3 mL Neb INHALATION ×6 (03:20→23:26)
[2021-08-31 03:28] LABS: Basophils # 0.1 10^3/uL (0.0-0.1); Basophils % 0.5 %; Eosinophils # 0.2 10^3/uL (0.0-0.8); Eosinophils % 0.9 %; Hematocrit 29.8 % (37.0-47.0); Hemoglobin 9.4 g/dL (11.5-15.3); Lymphocytes # 1.8 10^3/uL (0.8-4.8); Lymphocytes % 10.2 %; Mean Corpuscular HGB Conc 31.5 g/dL (30.0-36.0); Mean Corpuscular Hemoglobin 29.5 pg (28.0-34.0); Mean Corpuscular Volume 93.4 fl (81-99); Mean Platelet Volume 10.6 fL (7.4-10.4); Monocytes # 0.7 10^3/uL (0.2-0.9); Monocytes % 3.8 %; Neutrophils # 13.78 10^3/uL (1.8-7.7); Neutrophils % 77.5 %; Nucleated Red Blood Cells # 0.1 /100WBC; Nucleated Red Blood Cells % 0.8 %; Platelet Count 266 10^3/cmm (130-400); Red Blood Count 3.19 10^6/uL (4.1-5.3); Red Cell Distribution Width 15.1 % (12.1-15.1); White Blood Count 17.8 10^3/uL (4.0-10.0)
[2021-08-31 03:41] LABS: D Dimer 2.89 ug/mIFEU (0-0.59)
[2021-08-31 03:51] LABS: Alanine Aminotransferase 37 U/L (0-33); Albumin Level 3.3 g/dL (3.5-5.2); Alkaline Phosphatase 77 IU/L (35-105); Anion Gap 15.9 (5-19); Aspartate Amino Transferase 60 U/L (0-32); Blood Urea Nitrogen 52 mg/dL (8-23); Calcium 9.1 mg/dL (8.5-10.5); Carbon Dioxide 23 mmol/L (22-29); Chloride 108 mmol/L (98-107); Globulin 2.3 g/dL (1.3-4.6); Glomerular Filtration Rate 37.7 mL/min (90-130); Glucose 244 mg/dL (65-115); Osmolality Calculated 318 mOsm/kg (285-295); Potassium 3.9 mmol/L (3.5-5.1); Sodium 143 mmol/L (136-145); Total Bilirubin 0.4 mg/dL (0.15-1.2); Total Protein 5.6 g/dL (6.6-8.7)
[2021-08-31 04:18] LABS: Slide Review Slide Review Perform
[2021-08-31] MEDS: acetaminophen 325 mg Tablet 650 MG PO ×2 (04:40→20:26)
[2021-08-31 06:15] LABS: Glucose Point of Care 174 mg/dL (70-110)
[2021-08-31 07:35] LABS: Glucose Point of Care 167 mg/dL (70-110)
[2021-08-31] MEDS: budesonide 0.5 mg/2 mL Neb INHALATION ×2 (08:00→20:12)
--- NOTE | 2021-08-31 08:11 | XRR_ITS ---
PROCEDURE INFORMATION: Exam: XR Chest Exam date and time: 08/31/2021 8:11 AM Age: 66 years old Clinical indication: Fever; Additional info: Hypoxia, fever TECHNIQUE: Imaging protocol: XR of the chest. Views: 1 view. COMPARISON: CR (CHEST, ) 08/30/2021 3:48 AM FINDINGS: Tubes, catheters and devices: Endotracheal tube, feeding tube and central venous catheters are again identified. The feeding tube and central venous catheters are stable. The endotracheal tube is now 5 cm above the patrick. Lungs: There has been a slight improvement in the bilateral infiltrates. Pleural spaces: Unremarkable. No pleural effusion. No pneumothorax. Heart/Mediastinum: Unremarkable. No cardiomegaly. Bones/joints: Unremarkable. XR/XR chest 1V portable [id number] IMPRESSION: Slight improvement in the bilateral infiltrates.
[2021-08-31] MEDS: nystatin 100,000 unit/mL UDC 5 mL 100000 UNIT PO ×4 (08:26→20:01)
[2021-08-31] MEDS: enoxaparin 120 mg/0.8 mL Syringe 115 MG SUBCUT ×2 (08:27→20:02)
[2021-08-31] MEDS: ferrous gluconate 324 mg Tablet PO ×2 (08:28→17:09)
[2021-08-31] MEDS: montelukast sodium 10 mg Tablet PO (08:28)
[2021-08-31] MEDS: zinc gluconate 50 mg Tablet PO (08:28)
[2021-08-31] MEDS: insulin lispro 100 unit/1 mL SUBCUT ×3 (08:28→21:09)
[2021-08-31] MEDS: cholecalciferol (vitamin D3) 1,000 unit Tablet 4000 UNIT PO (08:28)
[2021-08-31] MEDS: fluoxetine 20 mg Capsule PO (08:29)
[2021-08-31] MEDS: docusate sodium 100 mg Capsule PO ×2 (08:29→17:09)
[2021-08-31] MEDS: aspirin 81 mg EC Tablet PO (08:29)
[2021-08-31] MEDS: ascorbic acid 500 mg Tablet PO (08:29)
[2021-08-31] MEDS: lidocaine 5% Patch 1 PATCH TOPICAL (08:30)
[2021-08-31] MEDS: linezolid premix 600 MG/300 ML PREMIX 300 MG IV ×2 (09:16→20:02)
--- NOTE | 2021-08-31 10:36 | PC.NURSE ---
weaning sedation at this time to awaken pt for possible extubation noted increase in blood pressure and heart rate ...
[2021-08-31 11:07] LABS: Glucose Point of Care 162 mg/dL (70-110)
[2021-08-31] MEDS: propofol 1,000 MG/100 ML INJ 7.22 MG IV (11:07)
--- NOTE | 2021-08-31 11:55 | P.PN_ITS ---
Subjective Subjective: Opens eyes to voice, light touch, does not look around. Does not interact or follow commands. Closes eyes/falls asleep shortly after. Vitals/I&O/Wt Last Vital Signs Temp 97.7 F 08/31/21 10:00 Pulse 82 08/31/21 11:16 Resp 24 H 08/31/21 11:16 BP 185/72 08/31/21 10:00 Pulse Ox 90 08/31/21 11:16 08/30/21 08/31/21 08/31/21 22:59 06:59 14:59 Intake Total 455 / 1265.491 159.204 / 1424.695 742.107 / 742.107 Output Total 700 / 1700 700 / 2400 Balance -245 / -434.509 -540.796 / -975.305 742.107 / 742.107 Weight last 48 hrs Weight 107.51 kg Weight 51.483 kg Weight 116 kg Physical Exam Const: COMMON NORMALS: no acute distress GENERAL APPEARANCE: patient mechanically ventilated NUTRITIONAL APPEARANCE: obese HENMT: COMMON NORMALS: oropharynx normal Neck/C-Spine: COMMON NORMALS: no JVD Resp: COMMON NORMALS: clear to auscultation bilaterally AUSCULTATION: clear to auscultation bilaterally Cardio: COMMON NORMALS: no JVD, regular rhythm, S1 normal heart sound present, S2 normal heart sound present and No murmurs present (Cardio) RHYTHM: regular rhythm HEART SOUNDS: S1 normal heart sound present and S2 normal heart sound present GI: COMMON NORMALS: Soft to palpation PALPATION: Yes Soft to palpation Extremity: COMMON NORMALS: no joint enlargement and no pedal edema Neuro: OTHER: Opens eyes to voice/light touch. Does not interact or follow commands. Skin: COMMON NORMALS: no rashes or lesions noted GENERAL SKIN EXAM: no rashes or lesions noted Urinary Catheter Management: Alva: Cath Placed During This Visit: yes Reason for Continuing Indwelling Catheter: Accurate Measurement of Urinary Output in Critically Ill Patients Urinary Catheter Date of Insertion: 08/20/21 Urinary Catheter Time of Insertion: 22:30 Data : 08/31/21 02:28 08/31/21 02:28 Micro: Microbiology 08/31/21 08:46 Blood Culture - Preliminary Blood SPECIMEN COLLECTED 08/31/21 08:39 Blood Culture - Preliminary Blood SPECIMEN COLLECTED 08/29/21 13:10 Gram Stain - Final Sputum - Endotracheal Tube Aspirate Sputum Culture - Preliminary A&P Assessment and plan (1) Acute respiratory distress syndrome (ARDS) due to 2019 novel coronavirus: Opens eyes, still not following commands, interacting. Continue to wean off sedation. Weaning trial. FiO2 requirement steady at 55%. Discussed with her . He is going to come see her later this afternoon. Hypoxic respiratory failure with severe COVID-19. Taper down Decadron. Continue empiric antibiotics for now. Vancomycin changed to linezolid. Status post Actemra 08/20. Completed remdesivir course Continue heparin drip with severe D-dimer elevation Hold off TPN for now until if needed at closer to 7 days, as is also in positive fluid balance, with risk of fluid overload Dietitian consult appreciated -all our tube feeds contain milk-based or products. Check triglycerides. Status: Acute (2) Fever: Not clear etiology. Has been afebrile so far with COVID-19. Could be due to virus, but additionally assessed with chest x-ray, appears to have some improvement in bilateral opacities. No focal infiltrate to suggest superimposed bacterial pneumonia. Requested repeat blood culture, urine culture. Blood cultures previously positive for staph epidermidis, cranial bacterium, both possibly contamination from heavy skin valdez. No recurrence of growth on any of the to repeat blood cultures. Discussed with her . Continue linezolid for now in case these are pathogens, but that seems less likely. Follow-up repeat blood culture. Continue attempts to wean Status: Acute (3) Bacteremia due to Staphylococcus epidermidis: Continue linezolid. Febrile today, repeated blood cultures as above. Staphylococcus epidermidis and current bacterium, 4/4 bottles from culture 08/20. Suspect heavy skin valdez. No growth on repeat cultures. Status: Acute (4) 2019 novel coronavirus-infected pneumonia (NCIP): Status: Acute (5) Acute encephalopathy: Preintubation severe anxiety. baseline anxiety and PTSD Status: Acute (6) Restrictive lung disease secondary to obesity: Status: Acute (7) FREDERICK (obstructive sleep apnea): Was on BiPAP nightly. Status: Acute (8) Acute kidney injury superimposed on CKD: Showed improvement. Appears to be close to baseline creatinine level with CKD. Status: Acute Plan D-dimer elevated. Switch to Lovenox given stabilization of renal function. Unf ortunately cannot do CTA given DEIRDRE on CKD. Cannot do VQ scan. Lower limb Dopplers negative for DVT. Reassess D-dimer. CTA or VQ scan once able to. Hyperkalemia: Resolved. Hypertension Type II diabetes mellitus: Insulin sliding scale at mild dose protocol. A1c 6.7. Does not seem to be on any hypoglycemics at home. Anxiety/PTSD: At home on Celexa and hydroxyzine. Has been on Xanax 0.5 every 8 hours as needed. High anion gap metabolic acidosis: Worsened again with DEIRDRE. Attestations Medical Necessity Statement*: Continue admission for assessment management of hypoxic respiratory failure, weaning of sedation, ventilatory support. Critical Care Time: The high probability of a clinically significant, sudden or life threatening deterioration of the patient's respiratory system(s) required my full and direct attention, intervention and personal management. The critical care time is as shown. This time is in addition to time spent performing any reported procedures but includes the following: x Data and vital sign review and interpretation x Patient assessment, examination and intervention x Documentation x Medication orders and management Critical Care Time (min): 40 Coding Level of Care Code Acute Agricultural Research Engineer for [facility] Fwd Exam Comprehensive Diagnoses Acute respiratory distress syndrome (ARDS) due to 2019 novel coronavirus U07.1; J80 Bacteremia due to Staphylococcus epidermidis R78.81; B95.7 2019 novel coronavirus-infected pneumonia (NCIP) U07.1; J12.82 Acute encephalopathy G93.40 Restrictive lung disease secondary to obesity J98.4; E66.9 FREDERICK (obstructive sleep apnea) G47.33 Acute kidney injury superimposed on CKD N17.9; N18.9 Fever R50.9
--- NOTE | 2021-08-31 12:10 | PC.RESP ---
RT Shift Note Frequent safety and respiratory rounds continue. Orders completed as indicated. Patient monitored pre and post treatments throughout shift. Patient [Did] tolerate treatments appropriately. Condition [.DidNotChange]. Patient and/or outbound call center representative educated on respiratory treatment and medications. Patient and/or outbound call center representative [unable to comprehend]. Will continue to monitor patient progress.
--- NOTE | 2021-08-31 12:29 | PC.SOCIAL ---
IMM not given. Pt is intubated at this time. Pt is not discharging within the next 24-48hrs.
--- NOTE | 2021-08-31 12:51 | PC.NURSE ---
sedation down to minimal.. more responsive but also noted blood pressure increased and has short episodes of svt , verapamil started
[2021-08-31 13:13] LABS: Triglycerides 585 mg/dL (0-150)
--- NOTE | 2021-08-31 16:33 | NUR.SHIFT ---
Shift Note Frequent safety and comfort rounds continue. Orders and/or nursing care completed as indicated have on minimal sedation Patient monitored for response will open eyes repositioned . Will continue to monitor and leave sedation down attempt wean off pt.. in for visit
[2021-08-31 17:28] LABS: Glucose Point of Care 122 mg/dL (70-110)
[2021-08-31 17:48] LABS: Specific Gravity, Urine 1.015 (1.005-1.030); Urine Appearance Cloudy (CLEAR); Urine Color Amber (Yellow); pH Urine 5 (5-7)
[2021-08-31 17:49] LABS: Add Urine Microscopic? YES; Bilirubin Urine Neg (Negative); Blood Urine 3+ (Negative); Glucose Urine UA Norm (Normal); Ketones Urine 1+ (Negative); Leukocyte Esterase Urine 1+ (Negative); Nitrate Urine Positive (Negative); Protein Urine 2+ (Negative); Urobilinogen Urine 1 mg/dL (Negative)
[2021-08-31 17:50] LABS: Add Urine Culture? Yes; Bacteria Urine 1+ /hpf; RBC Urine TOO NUMEROUS TO CNT /hpf (0-2)
[2021-08-31] MEDS: dexamethasone 4 mg/mL INJ 3 MG IVP (20:02)
[2021-08-31] MEDS: pantoprazole 40 mg SDV IVP (20:03)
[2021-08-31 20:58] LABS: Glucose Point of Care 166 mg/dL (70-110)
[2021-09-01] VITALS (58 sets, daily range): BP systolic 96–224; BP diastolic 45–97; PULSE 62–99; RESP 24–34; TEMP 37.6–38.3; O2SAT 90–97
[2021-09-01] MEDS: propofol 1,000 MG/100 ML INJ 7.22 MG IV (00:11)
[2021-09-01] MEDS: ipratropium-albuterol 3 mL Neb INHALATION ×6 (03:18→23:33)
[2021-09-01 03:41] LABS: Basophils # 0.1 10^3/uL (0.0-0.1); Basophils % 0.4 %; Eosinophils # 0.1 10^3/uL (0.0-0.8); Eosinophils % 0.5 %; Hematocrit 29.3 % (37.0-47.0); Hemoglobin 9.4 g/dL (11.5-15.3); Lymphocytes # 1.7 10^3/uL (0.8-4.8); Lymphocytes % 12.7 %; Mean Corpuscular HGB Conc 32.1 g/dL (30.0-36.0); Mean Corpuscular Volume 90.4 fl (81-99); Mean Platelet Volume 10.4 fL (7.4-10.4); Monocytes # 0.7 10^3/uL (0.2-0.9); Neutrophils # 10.43 10^3/uL (1.8-7.7); Neutrophils % 76.6 %; Nucleated Red Blood Cells # 0.1 /100WBC; Nucleated Red Blood Cells % 0.5 %; Platelet Count 226 10^3/cmm (130-400); Red Blood Count 3.24 10^6/uL (4.1-5.3); Red Cell Distribution Width 14.9 % (12.1-15.1); White Blood Count 13.6 10^3/uL (4.0-10.0)
[2021-09-01 03:50] LABS: D Dimer 2.49 ug/mIFEU (0-0.59)
[2021-09-01 04:04] LABS: Alanine Aminotransferase 37 U/L (0-33); Albumin Level 3.5 g/dL (3.5-5.2); Alkaline Phosphatase 68 IU/L (35-105); Anion Gap 14.9 (5-19); Aspartate Amino Transferase 52 U/L (0-32); Blood Urea Nitrogen 42 mg/dL (8-23); Calcium 9.1 mg/dL (8.5-10.5); Carbon Dioxide 23 mmol/L (22-29); Chloride 109 mmol/L (98-107); Globulin 2.5 g/dL (1.3-4.6); Glomerular Filtration Rate 55.6 mL/min (90-130); Glucose 174 mg/dL (65-115); Osmolality Calculated 311 mOsm/kg (285-295); Potassium 3.9 mmol/L (3.5-5.1); Sodium 143 mmol/L (136-145); Total Bilirubin 0.5 mg/dL (0.15-1.2)
[2021-09-01] MEDS: hyDRALAzine 20 mg/mL INJ 1 mL 10 MG IVP (05:15)
[2021-09-01] MEDS: acetaminophen 325 mg Tablet 650 MG PO ×2 (06:18→12:47)
[2021-09-01 07:27] LABS: Glucose Point of Care 137 mg/dL (70-110)
[2021-09-01] MEDS: fluoxetine 20 mg Capsule PO (07:49)
[2021-09-01] MEDS: zinc gluconate 50 mg Tablet PO (07:49)
[2021-09-01] MEDS: ascorbic acid 500 mg Tablet PO (07:49)
[2021-09-01] MEDS: cholecalciferol (vitamin D3) 1,000 unit Tablet 4000 UNIT PO (07:49)
[2021-09-01] MEDS: ferrous gluconate 324 mg Tablet PO ×2 (07:50→17:05)
[2021-09-01] MEDS: montelukast sodium 10 mg Tablet PO (07:50)
[2021-09-01] MEDS: aspirin 81 mg EC Tablet PO (07:50)
[2021-09-01] MEDS: docusate sodium 100 mg Capsule PO ×2 (07:50→17:05)
[2021-09-01] MEDS: enoxaparin 120 mg/0.8 mL Syringe 115 MG SUBCUT ×2 (07:50→22:45)
[2021-09-01] MEDS: hyDRALAzine 10 mg Tablet PO ×3 (07:50→22:47)
[2021-09-01] MEDS: lidocaine 5% Patch 1 PATCH TOPICAL (07:51)
[2021-09-01] MEDS: linezolid premix 600 MG/300 ML PREMIX 300 MG IV ×2 (08:13→22:46)
[2021-09-01] MEDS: nystatin 100,000 unit/mL UDC 5 mL 100000 UNIT PO ×4 (08:14→22:46)
[2021-09-01] MEDS: budesonide 0.5 mg/2 mL Neb INHALATION ×2 (08:50→20:15)
--- NOTE | 2021-09-01 09:16 | PC.CHAP ---
Pastoral Care Encounter/Spiritual Assessment Type of Contact [] Declined mothers helper visit [] Patient/Family/Request visit [] Outpatient visit [] Follow-up visit [] Physician referral [] Code/Alert [x] Routine visit [] Staff referral [] Actively dying [x] Patient sleeping [] Family support [] [] Out of room [] Palliative care [] [x] Receiving care in room [] Pre-surgical visit [] Trauma [] Long length of stay [x] ICU visit [x] Other: vent Relational/Emotional Strength [] Patient feels connected with others/family/visitors/staff [] Distress [] Loneliness/isolation [] Abandonment Spirituality of Patient [] Person of Herlinda [] Attends Faith of their Herlinda [] Believes in Prayer [] Reads Bible or Zoroastrianism materials [] There are Spiritual issues to be addressed Manager Behavior Interventions [] Prayer [] Active listening [] Non-anxious presence [] Spiritual/emotional support [] Crisis/trauma care [] Spiritual counseling [] Bereavement support [] Provided bereavement packet [] Provided Bible/devotional materials [] Provided toy/stuffed animal, coloring book to patient or family member [] Provided Communion [] Anointing/[place] [] Salvation [] Completed spiritual assessment [] Other: Impact on Illness or Injury [] Angry [] Fearful [] Anxious [] Often cries [] Exhaustion [] Unable to work [] Unable to attend quaker [] Unable to walk/stand [] Unable to read [] Unable to drive [] Unable to eat/drink [] Unable to sleep [] Unable to be with family [] Patient intubated [] Other: Summary Time spent with patient Pastoral Care Encounter/Spiritual Assessment Type of Contact [] Declined mothers helper visit [] Patient/Family/Request visit [] Outpatient visit [] Follow-up visit [] Physician referral [] Code/Alert [] Routine visit [] Staff referral [] Actively dying [] Patient sleeping [] Family support [] [] Out of room [] Palliative care [] [] Receiving care in room [] Pre-surgical visit [] Trauma [] Long length of stay [] ICU visit [] Other: Relational/Emotional Strength [] Patient feels connected with others/family/visitors/staff [] Distress [] Loneliness/isolation [] Abandonment Spirituality of Patient [] Person of Herlinda [] Attends Faith of their Herlinda [] Believes in Prayer [] Reads Bible or Zoroastrianism materials [] There are Spiritual issues to be addressed Manager Behavior Interventions [x] Prayer [] Active listening [] Non-anxious presence [] Spiritual/emotional support [] Crisis/trauma care [] Spiritual counseling [] Bereavement support [] Provided bereavement packet [] Provided Bible/devotional materials [] Provided toy/stuffed animal, coloring book to patient or family member [] Provided Communion [] Anointing/[place] [] Salvation [x] Completed spiritual assessment [] Other: Impact on Illness or Injury [] Angry [] Fearful [] Anxious [] Often cries [] Exhaustion [] Unable to work [] Unable to attend quaker [] Unable to walk/stand [] Unable to read [] Unable to drive [] Unable to eat/drink [] Unable to sleep [] Unable to be with family [] Patient intubated [] Other: Summary Time spent with patient
[2021-09-01] MEDS: propofol 1,000 MG/100 ML INJ 18.05 MG IV ×2 (10:12→15:20)
--- NOTE | 2021-09-01 10:26 | PC.NURSE ---
Fantanyl dose charted at 0725 250mcg/hr, actual dose 25mcg/hr. 0800 charted 500mcg/hr, actual dose 50mcg/hr. 0830 charted 750mcg/hr actual dose 75mcg/hr.
--- NOTE | 2021-09-01 11:04 | PM.PN ---
Subjective Subjective: THis morning sedation was increased because patient was opening eyes to sternal rub Urine color is improving becoming light red Afebrile since midnight We will start tube feeds today Fentanyl 50 which was increased from 25 mics FiO2 55% PEEP 8 Vitals/I&O/Wt Last Vital Signs Temp 100.6 F H 09/01/21 07:30 Pulse 71 09/01/21 10:31 Resp 26 H 09/01/21 09:06 BP 104/47 09/01/21 10:31 Pulse Ox 90 09/01/21 10:31 08/31/21 09/01/21 09/01/21 22:59 06:59 14:59 Intake Total 400 / 1142.107 194.341 / 1336.448 684.924 / 684.924 Output Total 850 / 850 750 / 1600 Balance -450 / 292.107 -555.659 / -263.552 684.924 / 684.924 Weight last 48 hrs Weight 107.51 kg Weight 51.483 kg Physical Exam Narrative: Patient is intubated and sedated Opens her eyes to sternal rub Increased sedation today Light red urine in the catheter Abdomen soft nontender, Does not look fluid overloaded Bilateral assisted breath sounds Neuro exam limited Urinary Catheter Management: Alva: Cath Placed During This Visit: yes Reason for Continuing Indwelling Catheter: Accurate Measurement of Urinary Output in Critically Ill Patients Urinary Catheter Date of Insertion: 08/20/21 Urinary Catheter Time of Insertion: 22:30 Data : 09/01/21 03:10 09/01/21 03:10 Micro: Microbiology 08/31/21 08:46 Blood Culture - Preliminary Blood NEGATIVE TO DATE 08/31/21 08:39 Blood Culture - Preliminary Blood NEGATIVE TO DATE 08/29/21 13:10 Gram Stain - Final Sputum - Endotracheal Tube Aspirate Sputum Culture - Final A&P Assessment and plan (1) Fever: Status: Acute (2) Acute respiratory distress syndrome (ARDS) due to 2019 novel coronavirus: Status: Acute (3) Acute kidney injury superimposed on CKD: Status: Acute (4) Acute encephalopathy: Status: Acute (5) COVID-19: Status: Acute (6) Restrictive lung disease secondary to obesity: Status: Acute (7) FREDERICK (obstructive sleep apnea): Status: Acute Plan Patient intubated 08/26 for COVID-19 with worsening hypoxia Patient did receive steroids, remdesivir, Actemra 08/20 Was on heparin drip for high D-dimer Currently on minimal vent settings Plan to decrease PEEP plan To do sedation vacation Hematuria: Resolving, light pink urine noted Febrile episodes noted concern for ventilator associated pneumonia currently on broad-spectrum antibiotics, check LDH, will plan to add caspofungin if fever does not break with the current regimen is negative date contamination evident on the blood cultures Currently on therapeutic regimen with Lovenox Type 2 diabetes And plan is to do CTA chest tomorrow to rule out PE Start TPN Full code Attestations Medical Necessity Statement*: Continue ICU management Time Spent in Patient Care: 25min Coding Level of Care Code Acute Window Caser for g Fwd Diagnoses Fever R50.9 Acute respiratory distress syndrome (ARDS) due to 2019 novel coronavirus U07.1; J80 Acute kidney injury superimposed on CKD N17.9; N18.9 Acute encephalopathy G93.40 COVID-19 U07.1 Restrictive lung disease secondary to obesity J98.4; E66.9 FREDERICK (obstructive sleep apnea) G47.33
[2021-09-01 11:24] LABS: Glucose Point of Care 125 mg/dL (70-110)
[2021-09-01] MEDS: FUROsemide 10 mg/mL SDV 10mL 60 MG IVP (11:30)
[2021-09-01] MEDS: AA-Dex 5%-20% w/Lytes 1,000 ML 10 ML IV (12:19)
[2021-09-01 18:30] LABS: Glucose Point of Care 143 mg/dL (70-110)
[2021-09-01] MEDS: insulin lispro 100 unit/1 mL SUBCUT (18:39)
[2021-09-01] MEDS: pantoprazole 40 mg SDV IVP (22:45)
[2021-09-01] MEDS: dexamethasone 4 mg/mL INJ 3 MG IVP (22:45)
[2021-09-01 23:05] LABS: Glucose Point of Care 141 mg/dL (70-110)
[2021-09-02] VITALS (66 sets, daily range): BP systolic 93–157; BP diastolic 46–80; PULSE 57–86; RESP 24–33; TEMP 37.2–37.8; O2SAT 86–97
[2021-09-02] MEDS: propofol 1,000 MG/100 ML INJ 10.83 MG IV (01:03)
[2021-09-02] MEDS: ipratropium-albuterol 3 mL Neb INHALATION ×6 (03:44→23:50)
[2021-09-02 03:50] LABS: Basophils % 0.3 %; Eosinophils # 0.2 10^3/uL (0.0-0.8); Eosinophils % 1.3 %; Hematocrit 30.1 % (37.0-47.0); Hemoglobin 9.8 g/dL (11.5-15.3); Lymphocytes % 7.9 %; Mean Corpuscular HGB Conc 32.6 g/dL (30.0-36.0); Mean Corpuscular Hemoglobin 29.3 pg (28.0-34.0); Mean Corpuscular Volume 90.1 fl (81-99); Mean Platelet Volume 10.1 fL (7.4-10.4); Monocytes # 0.5 10^3/uL (0.2-0.9); Monocytes % 3.8 %; Neutrophils # 11.15 10^3/uL (1.8-7.7); Neutrophils % 85.1 %; Nucleated Red Blood Cells # 0.1 /100WBC; Nucleated Red Blood Cells % 0.5 %; Platelet Count 190 10^3/cmm (130-400); Red Blood Count 3.34 10^6/uL (4.1-5.3); Red Cell Distribution Width 15.4 % (12.1-15.1); White Blood Count 13.1 10^3/uL (4.0-10.0)
[2021-09-02 04:01] LABS: D Dimer 1.94 ug/mIFEU (0-0.59)
[2021-09-02 04:03] LABS: Alanine Aminotransferase 38 U/L (0-33); Albumin Level 3.5 g/dL (3.5-5.2); Alkaline Phosphatase 72 IU/L (35-105); Anion Gap 15.7 (5-19); Aspartate Amino Transferase 40 U/L (0-32); Blood Urea Nitrogen 40 mg/dL (8-23); Calcium 9.1 mg/dL (8.5-10.5); Carbon Dioxide 25 mmol/L (22-29); Chloride 104 mmol/L (98-107); Globulin 2.3 g/dL (1.3-4.6); Glomerular Filtration Rate 45.1 mL/min (90-130); Glucose 199 mg/dL (65-115); Osmolality Calculated 307 mOsm/kg (285-295); Potassium 3.7 mmol/L (3.5-5.1); Sodium 141 mmol/L (136-145); Total Bilirubin 0.5 mg/dL (0.15-1.2); Total Protein 5.8 g/dL (6.6-8.7)
[2021-09-02 04:04] LABS: Lactate Dehydrogenase 542 U/L (135-214)
[2021-09-02 05:45] LABS: ABG PCO2 43.8 mmHg (35-45); ABG PH Result 7.41 (7.35-7.45); Arterial Blood Gas Hematocrit 33.4 % (37-47); Base Excess ABG 2.8 mmol/L (-2.0-2.0); Blood Gas Allen Test Pos; Blood Gas Operator Identificat JB; Blood Gas Sample Site Brachial, right; Blood Gas Sample Type Arterial; HCO3 ABG 27.8 mmol/L (22-26); Oxygen Device VENT
[2021-09-02] MEDS: linezolid premix 600 MG/300 ML PREMIX 300 MG IV ×2 (08:02→20:52)
[2021-09-02] MEDS: enoxaparin 120 mg/0.8 mL Syringe 115 MG SUBCUT ×2 (08:03→20:51)
[2021-09-02] MEDS: ascorbic acid 500 mg Tablet PO (08:04)
[2021-09-02] MEDS: hyDRALAzine 10 mg Tablet PO ×3 (08:04→20:51)
[2021-09-02] MEDS: fluoxetine 20 mg Capsule PO (08:04)
[2021-09-02] MEDS: docusate sodium 100 mg Capsule PO ×2 (08:04→17:23)
[2021-09-02] MEDS: montelukast sodium 10 mg Tablet PO (08:04)
[2021-09-02] MEDS: zinc gluconate 50 mg Tablet PO (08:04)
[2021-09-02] MEDS: cholecalciferol (vitamin D3) 1,000 unit Tablet 4000 UNIT PO (08:04)
[2021-09-02] MEDS: aspirin 81 mg EC Tablet PO (08:04)
[2021-09-02] MEDS: ferrous gluconate 324 mg Tablet PO ×2 (08:05→17:23)
[2021-09-02] MEDS: nystatin 100,000 unit/mL UDC 5 mL 100000 UNIT PO ×4 (08:05→20:51)
[2021-09-02] MEDS: budesonide 0.5 mg/2 mL Neb INHALATION ×2 (08:07→20:27)
[2021-09-02] MEDS: lidocaine 5% Patch 1 PATCH TOPICAL (09:46)
[2021-09-02] MEDS: insulin lispro 100 unit/1 mL SUBCUT ×4 (09:46→21:41)
--- NOTE | 2021-09-02 10:07 | PC.SOCIAL ---
IMM Not Updated Pg. 2 of IMM Not updated. Patient remains intubated and not anticipated to discharge within 48hours.
[2021-09-02] MEDS: hyDROXYzine 25 mg Capsule PO ×2 (10:19→22:12)
--- NOTE | 2021-09-02 10:41 | PM.PN ---
Subjective Subjective: Patient has been spiking fever -1 L fluid balance Creatinine has slightly worsened Hemoglobin stable Leukocytosis 13,000 D-dimer 1.9 /10 venous Doppler negative for DVT Vitals/I&O/Wt Last Vital Signs Temp 99.8 F H 09/02/21 07:01 Pulse 72 09/02/21 10:00 Resp 26 H 09/02/21 10:00 BP 126/66 09/02/21 10:00 Pulse Ox 96 09/02/21 10:00 09/01/21 09/02/21 09/02/21 22:59 06:59 14:59 Intake Total 344.826 / 1046.500 642.456 / 1688.956 607.310 / 607.310 Output Total 2475 / 2475 200 / 2675 Balance -2130.174 / -1428.500 442.456 / -986.044 607.310 / 607.310 Weight last 48 hrs Weight 106.594 kg Weight 107.51 kg Physical Exam Narrative: Patient is arousable, following commands Right IJ with blood-tinged crusting Abdomen is soft No signs of edema Alva catheter draining yellow urine Tube feeds pending at the bedside Assisted bilateral breath sounds She is able to follow commands, open her eyes, nodding her head appropriately Urinary Catheter Management: Alva: Cath Placed During This Visit: yes Reason for Continuing Indwelling Catheter: Accurate Measurement of Urinary Output in Critically Ill Patients Urinary Catheter Date of Insertion: 08/20/21 Urinary Catheter Time of Insertion: 22:30 Data : 09/02/21 03:40 09/02/21 03:40 Micro: Microbiology 08/31/21 16:30 Urine Culture - Final Urine,Clean Catch 08/31/21 08:46 Blood Culture - Preliminary Blood NEGATIVE TO DATE 08/31/21 08:39 Blood Culture - Preliminary Blood NEGATIVE TO DATE A&P Assessment and plan (1) Fever: Status: Acute (2) Acute respiratory distress syndrome (ARDS) due to 2019 novel coronavirus: Status: Acute (3) Acute kidney injury superimposed on CKD: Status: Acute (4) Acute encephalopathy: Status: Acute (5) COVID-19: Status: Acute (6) Restrictive lung disease secondary to obesity: Status: Acute (7) FREDERICK (obstructive sleep apnea): Status: Acute (8) Exertional dyspnea: Status: Acute (9) Status post placement of implantable loop recorder: Status: Acute Plan COVID-19 related hypoxia Patient can come off isolation Weaning trial today Intubated 08/26 Actemra 08/20 Switched from heparin drip to therapeutic Lovenox Persistent leukocytosis around 13,000, it has not worsened, febrile events noted Currently on Primaxin and linezolid, I would like to remove her right IJ central line as soon as possible he does have bloodsoaked dressing Cultures negative to date No signs of UTI We will obtain CTA chest to rule out PE Dopplers did not show DVT which was done on 08/21 CTA chest was also delineate if there are any infiltrates related to ventilator associated pneumonia it has not been diagnosed yet If after removal of central line she still spikes fever, will add caspofungin Acute on chronic kidney disease Creatinine seems to be around baseline now will obtain CTA chest Euglycemic Currently on tube feeds Family updated Hematuria has resolved We will give her lactulose Plan discussed with the ASSISTANT PROFESSOR OF DRAMA and RT Attestations Medical Necessity Statement*: Continue ICU management Time Spent in Patient Care: 20mins Coding Level of Care Code Acute Mat Tester for Chg Fwd Diagnoses Fever R50.9 Acute respiratory distress syndrome (ARDS) due to 2019 novel coronavirus U07.1; J80 Acute kidney injury superimposed on CKD N17.9; N18.9 Acute encephalopathy G93.40 COVID-19 U07.1 Restrictive lung disease secondary to obesity J98.4; E66.9 FREDERICK (obstructive sleep apnea) G47.33 Exertional dyspnea R06.00 Status post placement of implantable loop recorder Z95.813
[2021-09-02 11:55] LABS: Glucose Point of Care 157 mg/dL (70-110)
[2021-09-02] MEDS: FUROsemide 10 mg/mL SDV 10mL 60 MG IVP (12:10)
[2021-09-02] MEDS: AA-Dex 5%-20% w/Lytes 1,000 ML 30 ML IV (12:14)
[2021-09-02 14:44] LABS: ABG PCO2 27.1 mmHg (35-45); Arterial Blood Gas Hematocrit 32.7 % (37-47); Base Excess ABG 5.8 mmol/L (-2.0-2.0); Blood Gas Allen Test Pos; Blood Gas Operator Identificat GD; Blood Gas Sample Site Radial, left; Blood Gas Sample Type Arterial; HCO3 ABG 26.9 mmol/L (22-26); HGB O2 Sat 94.1 % (95-100); Ionized Calcium Level - ABG 1.2 mmol/L (1.1-1.4); Methemoglobin 1.2 % (0.4-1.5); Oxygen Saturation ABG 96.2; Total Hemoglobin 10.7 g/dL (12-16)
[2021-09-02 14:45] LABS: Alveolar-Arterial Oxygen Gradi 28.5 mmHg (5-10); Oxygen Device VENT
[2021-09-02 14:52] LABS: ABG PH Result 7.61 (7.35-7.45)
[2021-09-02 17:41] LABS: Glucose Point of Care 167 mg/dL (70-110)
[2021-09-02] MEDS: acetaminophen 325 mg Tablet 650 MG PO (18:25)
--- NOTE | 2021-09-02 18:47 | PC.NURSE ---
Fentanyl waste 165ml. Witnessed by second RN
--- NOTE | 2021-09-02 20:34 | PC.NURSE ---
TPN increased to 50 mls per hour. It had previously been running at 40 mls/hr, but that was not reflected in the MAR.
[2021-09-02] MEDS: pantoprazole 40 mg SDV IVP (20:51)
[2021-09-02 21:41] LABS: Glucose Point of Care 258 mg/dL (70-110)
[2021-09-03] VITALS (31 sets, daily range): BP systolic 91–133; BP diastolic 44–77; PULSE 61–95; RESP 18–28; TEMP 36.6–37.6; O2SAT 87–95
--- NOTE | 2021-09-03 00:58 | PC.NURSE ---
Pt reports that her right eye won't open all the way without really trying. Pt's face is symmetrical, all extremities are severely weak, but not flaccid. No tongue deviation. Speech is normal. No headache present. Pt's eye does not appear to be open less than the left eye. Pt reports that her sight is normal.
[2021-09-03 03:39] LABS: Glucose Point of Care 254 mg/dL (70-110)
--- NOTE | 2021-09-03 03:42 | PC.NURSE ---
Patient refuses bath and clean gown at this time. Reports that she is too tired.
[2021-09-03] MEDS: ipratropium-albuterol 3 mL Neb INHALATION ×5 (03:47→23:05)
[2021-09-03 03:56] LABS: Basophils % 0.4 %; Eosinophils # 0.4 10^3/uL (0.0-0.8); Eosinophils % 4.1 %; Hematocrit 28.1 % (37.0-47.0); Hemoglobin 9.3 g/dL (11.5-15.3); Lymphocytes # 1.6 10^3/uL (0.8-4.8); Lymphocytes % 18.4 %; Mean Corpuscular HGB Conc 33.1 g/dL (30.0-36.0); Mean Corpuscular Hemoglobin 29.4 pg (28.0-34.0); Mean Corpuscular Volume 88.9 fl (81-99); Mean Platelet Volume 10.3 fL (7.4-10.4); Monocytes # 0.5 10^3/uL (0.2-0.9); Monocytes % 6.2 %; Neutrophils # 5.98 10^3/uL (1.8-7.7); Neutrophils % 69.8 %; Nucleated Red Blood Cells # 0.1 /100WBC; Nucleated Red Blood Cells % 0.6 %; Platelet Count 161 10^3/cmm (130-400); Red Blood Count 3.16 10^6/uL (4.1-5.3); Red Cell Distribution Width 14.9 % (12.1-15.1); White Blood Count 8.6 10^3/uL (4.0-10.0)
[2021-09-03 04:12] LABS: D Dimer 1.38 ug/mIFEU (0-0.59)
[2021-09-03 04:20] LABS: Alanine Aminotransferase 35 U/L (0-33); Albumin Level 3.5 g/dL (3.5-5.2); Alkaline Phosphatase 68 IU/L (35-105); Anion Gap 16.8 (5-19); Aspartate Amino Transferase 34 U/L (0-32); Blood Urea Nitrogen 41 mg/dL (8-23); C Reactive Protein 8.5 mg/L (0.0-4.9); Calcium 9.4 mg/dL (8.5-10.5); Carbon Dioxide 25 mmol/L (22-29); Chloride 96 mmol/L (98-107); Globulin 2.2 g/dL (1.3-4.6); Glomerular Filtration Rate 49.8 mL/min (90-130); Glucose 203 mg/dL (65-115); Osmolality Calculated 296 mOsm/kg (285-295); Sodium 135 mmol/L (136-145); Total Bilirubin 0.4 mg/dL (0.15-1.2); Total Protein 5.7 g/dL (6.6-8.7)
[2021-09-03 04:23] LABS: Procalcitonin 0.07 ng/mL (0-0.5)
[2021-09-03 04:36] LABS: Creatinine Clr Calc Pharmacy 60.7377
[2021-09-03 04:38] LABS: Potassium 2.8 mmol/L (3.5-5.1)
[2021-09-03] MEDS: potassium chloride ER 20 mEq Tablet 40 MEQ PO (05:18)
[2021-09-03 06:34] LABS: Glucose Point of Care 190 mg/dL (70-110)
--- NOTE | 2021-09-03 08:00 | PC.NURSE ---
Attempted to assit pt out of bed to chair. Pt unable to hold core sitting side of bed. Encouraged pt to hold head, she yelled she was, but would only hold it up less than a minute. Pt assisted back to bed, unsafe to transfer her at this time.
[2021-09-03] MEDS: budesonide 0.5 mg/2 mL Neb INHALATION ×2 (08:15→23:04)
[2021-09-03] MEDS: insulin lispro 100 unit/1 mL SUBCUT ×3 (08:40→20:46)
[2021-09-03] MEDS: lidocaine 1% 5 ML in potassium chloride premix 100 ML 25 ML IV (08:40)
[2021-09-03] MEDS: cholecalciferol (vitamin D3) 1,000 unit Tablet 4000 UNIT PO (08:41)
[2021-09-03] MEDS: docusate sodium 100 mg Capsule PO ×2 (08:41→17:25)
[2021-09-03] MEDS: potassium chloride oral liq 20 mEq/15 mL UDC 40 MEQ PO (08:41)
[2021-09-03] MEDS: ferrous gluconate 324 mg Tablet PO ×2 (08:42→17:25)
[2021-09-03] MEDS: montelukast sodium 10 mg Tablet PO (08:42)
[2021-09-03] MEDS: hyDRALAzine 10 mg Tablet PO ×3 (08:42→20:41)
[2021-09-03] MEDS: ascorbic acid 500 mg Tablet PO (08:42)
[2021-09-03] MEDS: enoxaparin 120 mg/0.8 mL Syringe 115 MG SUBCUT ×2 (08:42→20:44)
[2021-09-03] MEDS: aspirin 81 mg EC Tablet PO (08:42)
[2021-09-03] MEDS: zinc gluconate 50 mg Tablet PO (08:42)
[2021-09-03] MEDS: lidocaine 5% Patch 1 PATCH TOPICAL (08:43)
[2021-09-03] MEDS: linezolid premix 600 MG/300 ML PREMIX 300 MG IV ×2 (08:43→20:44)
[2021-09-03] MEDS: nystatin 100,000 unit/mL UDC 5 mL 100000 UNIT PO ×4 (08:44→20:45)
--- NOTE | 2021-09-03 10:38 | PC.CHAP ---
Pastoral Care Encounter/Spiritual Assessment Type of Contact [] Declined management professor visit [] Patient/Family/Request visit [] Outpatient visit [] Follow-up visit [] Physician referral [] Code/Alert [x] Routine visit [] Staff referral [] Actively dying [] Patient sleeping [x] Family support [] [] Out of room [] Palliative care [] [] Receiving care in room [] Pre-surgical visit [] Trauma [] Long length of stay [x] ICU visit [] Other: Relational/Emotional Strength [] Patient feels connected with others/family/visitors/staff [] Distress [] Loneliness/isolation [] Abandonment Spirituality of Patient [] Person of Herlinda [] Attends Roman Catholic of their Herlinda [] Believes in Prayer [] Reads Bible or Cheondoism materials [] There are Spiritual issues to be addressed [employer] Interventions [x] Prayer [x] Active listening [x] Non-anxious presence [x] Spiritual/emotional support [] Crisis/trauma care [] Spiritual counseling [] Bereavement support [] Provided bereavement packet [] Provided Bible/devotional materials [] Provided toy/stuffed animal, coloring book to patient or family member [] Provided Communion [] Anointing/[place] [] Salvation [x] Completed spiritual assessment [] Other: Impact on Illness or Injury [] Angry [] Fearful [] Anxious [] Often cries [] Exhaustion [] Unable to work [] Unable to attend nondenominational [] Unable to walk/stand [] Unable to read [] Unable to drive [] Unable to eat/drink [] Unable to sleep [] Unable to be with family [] Patient intubated [] Other: Summary vent removed.. patient feeling stronger breakfast available.. Christian herlinda... Time spent with patient 10 min
--- NOTE | 2021-09-03 11:00 | PM.PN ---
Subjective Subjective: Patient was extubated on 09/02 to 6 L nasal cannula She was experiencing multiple bouts of anxiety This morning she was much more calm Hemodynamically stable Urine is yellow Requested nurse to remove central line after reaccess peripheral IV Patient came transfer out of ICU Currently on dysphagia diet PT/OT/speech therapy CTA chest is pending Off isolation No bowel movement, Currently patient is on 7 L nasal cannula saturating 90% Vitals/I&O/Wt Last Vital Signs Temp 99.6 F 09/03/21 04:00 Pulse 70 09/03/21 08:15 Resp 23 H 09/03/21 08:15 BP 106/44 09/03/21 06:30 Pulse Ox 90 09/03/21 08:15 09/02/21 09/03/21 09/03/21 22:59 06:59 14:59 Intake Total 2609.5 / 3363.810 617.5 / 3981.310 Output Total 1200 / 1200 700 / 1900 Balance 1409.5 / 2163.810 -82.5 / 2081.310 Weight last 48 hrs Weight 113.761 kg Weight 106.594 kg Physical Exam Narrative: Patient is much more awake and alert Is doing well on 7 L nasal cannula Does not look fluid overloaded or dehydrated Alva catheter with yellow urine Abdomen soft Bowel sound present Bilateral sounds without adventitious rhonchi or crackles Patient is awake and alert Nonfocal neuro exam Myalgia fatigue positive EOMI, PERRLA Appropriate comprehension Urinary Catheter Management: Alva: Cath Placed During This Visit: yes Reason for Continuing Indwelling Catheter: Accurate Measurement of Urinary Output in Critically Ill Patients Urinary Catheter Date of Insertion: 08/20/21 Urinary Catheter Time of Insertion: 22:30 Data : 09/03/21 03:30 09/03/21 03:30 Micro: Microbiology 09/02/21 03:35 Gram Stain - Final Sputum - Endotracheal Tube Aspirate 08/31/21 16:30 Urine Culture - Final Urine,Clean Catch A&P Assessment and plan (1) Fever: Status: Acute (2) Acute respiratory distress syndrome (ARDS) due to 2019 novel coronavirus: Status: Acute (3) Bacteremia due to Staphylococcus epidermidis: Status: Acute (4) Acute kidney injury superimposed on CKD: Status: Acute (5) Acute encephalopathy: Status: Acute (6) COVID-19: Status: Acute (7) Restrictive lung disease secondary to obesity: Status: Acute (8) FREDERICK (obstructive sleep apnea): Status: Acute (9) Exertional dyspnea: Status: Acute (10) Benign essential HTN: Status: Acute (11) Status post placement of implantable loop recorder: Status: Acute (12) COVID-19: Status: Acute Plan Extubated on 09/02 Doing well on 7 L nasal cannula Can be transferred out of ICU PT/OT/speech therapy De-escalate antibiotics by tomorrow if she remains afebrile Central line needs to be removed once we get peripheral IV access For possible PE I will get CTA chest, continue Lovenox therapeutic regimen Currently on dysphagia diet Full code updated Discontinue TPN Remove Alva catheter Constipation: Lactulose Patient emotionally very labile, resume her antidepressants Attestations Medical Necessity Statement*: Transfer out of ICU Time Spent in Patient Care: 20mins Coding Level of Care Code Acute Colon Therapist for Chg Fwd Diagnoses Fever R50.9 Acute respiratory distress syndrome (ARDS) due to 2019 novel coronavirus U07.1; J80 Bacteremia due to Staphylococcus epidermidis R78.81; B95.7 Acute kidney injury superimposed on CKD N17.9; N18.9 Acute encephalopathy G93.40 COVID-19 U07.1 Restrictive lung disease secondary to obesity J98.4; E66.9 FREDERICK (obstructive sleep apnea) G47.33 Exertional dyspnea R06.00 Benign essential HTN I10 Status post placement of implantable loop recorder Z95.818 COVID-19 U07.1
[2021-09-03 12:17] LABS: Glucose Point of Care 129 mg/dL (70-110)
[2021-09-03] MEDS: lactulose oral liq 20 gm/30 mL UDC 10 GM PO (13:29)
[2021-09-03] MEDS: FUROsemide 10 mg/mL SDV 10mL 60 MG IVP (13:30)
[2021-09-03] MEDS: methylphenidate 10 mg Tablet 5 MG PO (13:31)
--- NOTE | 2021-09-03 14:48 | PC.RESP ---
RT Shift Note Frequent safety and respiratory rounds continue. Orders completed as indicated. Patient monitored pre and post treatments throughout shift. Patient [Did.] tolerate treatments appropriately. Condition [.DidNotChange]. Patient and/or sales representative jewelry educated on respiratory treatment and medications. Patient and/or sales representative jewelry [verbalized understanding]. Will continue to monitor patient progress.
[2021-09-03] MEDS: benzonatate 100 mg Capsule 200 MG PO (15:52)
--- NOTE | 2021-09-03 16:43 | PC.NURSE ---
Ultrasound guided IV insertion completed.
[2021-09-03] MEDS: hyDROXYzine 25 mg Capsule PO (17:25)
--- NOTE | 2021-09-03 17:25 | PC.NURSE ---
CVL right neck removed. Started to remove rodas, pt demanded to sit back u. Rodas removed. Pt started hyperventilating. Her O2 sats dropped to 70's. Non-rebreather applied, pt's back to bedside to encourage pt to slow her breathing. She recovered up to 85% sats, but still breathing fast. Will cotinue to monitor.
--- NOTE | 2021-09-03 17:35 | PC.NURSE ---
Called [facility] to give report. Room not cleaned, will call when clean.
[2021-09-03 17:41] LABS: Glucose Point of Care 141 mg/dL (70-110)
--- NOTE | 2021-09-03 18:36 | PC.NURSE ---
Shift Note: Pt remained o Nasal cannula , started the shift off at lpm now at 10 lpm. She is extremely weak, she can barely lift her arm off pillows. She barely will try. She requires persistent encouragement. She received Lasix today ouput 1650ml. She did have one loose BM today after the Lactulose. Her husbnad came in, he is at beside encouraging her with her breathing and IS use. Frequent safety and comfort rounds continue. Orders and/or nursing care completed as indicated. Patient monitored for response to intervention and treatment(s). Education provided includes IS use, Lactulose and Lasix.. Patient and/or airport representative verbalizes understanding of plan of care, and continuing care. . Will continue to monitor.
[2021-09-03] MEDS: pantoprazole 40 mg SDV IVP (20:44)
[2021-09-03 21:22] LABS: Glucose Point of Care 144 mg/dL (70-110)
[2021-09-04] VITALS (14 sets, daily range): BP systolic 112–150; BP diastolic 67–82; PULSE 79–108; RESP 18–28; TEMP 36.8–37.1; O2SAT 85–95
[2021-09-04] MEDS: ipratropium-albuterol 3 mL Neb INHALATION ×3 (03:21→23:33)
[2021-09-04] MEDS: diphenhydrAMINE 50 mg/mL SDV 1mL 25 MG IVP (06:33)
--- NOTE | 2021-09-04 07:00 | CT_ITS ---
WS: [id number] CT CHEST ANGIOGRAPHY WITH REFORMATS HISTORY: Hypoxia, Covid TECHNIQUE: Contiguous axial images are obtained through the chest during arterial injection of intrav enous contrast. Images are reconstructed to evaluate the pulmonary arteries. MIP imaging also reviewe d. All CT scans at [facility] use at least one of these dose optimization techniques: automat ed exposure control; mA and/or kV adjustment per patient size (includes targeted exams where dose is matched to clinical indication); or iterative reconstruction. CONTRAST: Visipaque 320; 95 mL IV. DLP: 489.74 mGy.cm COMPARISON: 05/07/2021 Suboptimal evaluation due to poor timing of the injection bolus and motion. Cannot exclude pulmonary embolism. Pulmonary artery size is equal to the aorta. Atherosclerosis aorta but no dissection or ane urysm identified. Very mild cardiomegaly. No pericardial or pleural effusions. There is extensive bilateral areas of consolidation and groundglass attenuation throughout all lobes. No pneumothorax. No pneumomediastinum. No significant adenopathy. Unremarkable chest wall. No osteoblastic or osteolytic bone disease. CT/CT angio chest PE protcl [id number] IMPRESSION: 1. Suboptimal evaluation of the pulmonary arteries. Pulmonary embolism cannot be excluded. 2. Severe bilateral opacifications and groundglass attenuation throughout all lobes. Consider Covid 19 is a possible etiology. Superimposed metastatic lesion s would be difficult to exclude. 3. No adenopathy.
[2021-09-04 07:25] LABS: Glucose Point of Care 151 mg/dL (70-110)
[2021-09-04] MEDS: insulin lispro 100 unit/1 mL SUBCUT ×4 (07:40→21:58)
[2021-09-04] MEDS: ferrous gluconate 324 mg Tablet PO ×2 (07:41→17:08)
[2021-09-04 08:07] LABS: Basophils % 0.3 %; Eosinophils # 0.5 10^3/uL (0.0-0.8); Eosinophils % 5.6 %; Hematocrit 29.3 % (37.0-47.0); Hemoglobin 9.9 g/dL (11.5-15.3); Lymphocytes % 11.3 %; Mean Corpuscular HGB Conc 33.8 g/dL (30.0-36.0); Mean Corpuscular Hemoglobin 29.8 pg (28.0-34.0); Mean Corpuscular Volume 88.3 fl (81-99); Mean Platelet Volume 11.2 fL (7.4-10.4); Monocytes # 0.4 10^3/uL (0.2-0.9); Monocytes % 4.1 %; Neutrophils # 7.11 10^3/uL (1.8-7.7); Neutrophils % 77.9 %; Nucleated Red Blood Cells % 0.3 %; Platelet Count 131 10^3/cmm (130-400); Red Blood Count 3.32 10^6/uL (4.1-5.3); Red Cell Distribution Width 15.9 % (12.1-15.1); White Blood Count 9.1 10^3/uL (4.0-10.0)
[2021-09-04 08:18] LABS: Blood Urea Nitrogen 38 mg/dL (8-23); Calcium 10.5 mg/dL (8.5-10.5); Carbon Dioxide 22 mmol/L (22-29); Chloride 97 mmol/L (98-107); Glomerular Filtration Rate 55.6 mL/min (90-130); Glucose 175 mg/dL (65-115); Magnesium 1.7 mg/dL (1.7-2.3); Osmolality Calculated 287 mOsm/kg (285-295); Sodium 132 mmol/L (136-145)
[2021-09-04 08:19] LABS: Anion Gap 16.6 (5-19); Potassium 3.6 mmol/L (3.5-5.1)
[2021-09-04] MEDS: iodixanol 320 mg/mL 100mL Btl IV (08:30)
[2021-09-04 08:44] LABS: Slide Review Slide Review Perform
[2021-09-04] MEDS: hyDRALAzine 10 mg Tablet PO ×3 (08:46→20:47)
[2021-09-04] MEDS: fluoxetine 20 mg Capsule PO (08:46)
[2021-09-04] MEDS: zinc gluconate 50 mg Tablet PO (08:46)
[2021-09-04] MEDS: benzonatate 100 mg Capsule 200 MG PO ×3 (08:46→20:46)
[2021-09-04] MEDS: ascorbic acid 500 mg Tablet PO (08:46)
[2021-09-04] MEDS: montelukast sodium 10 mg Tablet PO (08:47)
[2021-09-04] MEDS: cholecalciferol (vitamin D3) 1,000 unit Tablet 4000 UNIT PO (08:47)
[2021-09-04] MEDS: aspirin 81 mg EC Tablet PO (08:47)
[2021-09-04] MEDS: nystatin 100,000 unit/mL UDC 5 mL 100000 UNIT PO ×4 (08:47→20:46)
[2021-09-04] MEDS: docusate sodium 100 mg Capsule PO ×2 (08:47→17:08)
[2021-09-04] MEDS: enoxaparin 120 mg/0.8 mL Syringe 115 MG SUBCUT ×2 (09:25→20:46)
[2021-09-04] MEDS: linezolid premix 600 MG/300 ML PREMIX 300 MG IV (09:26)
--- NOTE | 2021-09-04 10:21 | P.PN_ITS ---
Subjective Subjective: This morning patient was endorsing not feeling very hungry and change of her taste Requested CTA chest with was nonconclusive regarding PE however at this point I will continue her therapeutic Lovenox No overnight events Currently on 10 L nasal cannula which has been escalated from 7 L After shortness of breath or chest pain Encourage patient to get out of bed to chair, will need extensive PT Severe weakness of muscles from ICU No active signs of stroke Sitter poor p.o. intake I would hold off on Lasix for now Afebrile since removal of Alva catheter and central line 09/03 09/03 1 dose of Ritalin was given She was complaining of itching after her CT scan however she was given steroids and Benadryl before the contrast as well Vitals/I&O/Wt Last Vital Signs Temp 98.3 F 09/04/21 07:25 Pulse 84 09/04/21 08:02 Resp 20 H 09/04/21 08:02 BP 121/74 09/04/21 07:25 Pulse Ox 95 09/04/21 08:02 09/03/21 09/04/21 09/04/21 22:59 06:59 14:59 Intake Total 400 / 1780 100 / 1880 305 / 305 Output Total 255 / 1655 Balance 145 / 125 100 / 225 305 / 305 Weight last 48 hrs Weight 116.346 kg Weight 113.761 kg Physical Exam Narrative: Patient is in good spirits On 10 L nasal cannula Bilateral breath sound no adventitious rhonchi or crackles Distended abdomen, nontender abdomen Nonfocal neuro exam Awake and alert Peripheral IV right arm legs, lymphedema positive EOMI, PERRLA Appropriate mood and affect She was try to eat breakfast, endorsing change in her taste Urinary Catheter Management: Alva: Cath Placed During This Visit: yes, but has since been removed by the nurse Reason for Continuing Indwelling Catheter: Accurate Measurement of Urinary Output in Critically Ill Patients Urinary Catheter Date of Insertion: 08/20/21 Urinary Catheter Time of Insertion: 22:30 Date Urinary Catheter Removed: 09/03/21 Time Urinary Catheter Discontinued: 17:00 Data : 09/04/21 07:45 09/04/21 07:45 Micro: Microbiology 09/02/21 03:35 Gram Stain - Final Sputum - Endotracheal Tube Aspirate Sputum Culture - Preliminary A&P Assessment and plan (1) Fever: Status: Acute (2) Acute respiratory distress syndrome (ARDS) due to 2019 novel coronavirus: Status: Acute (3) Bacteremia due to Staphylococcus epidermidis: Status: Acute (4) Acute kidney injury superimposed on CKD: Status: Acute (5) Acute encephalopathy: Status: Acute (6) COVID-19: Status: Acute (7) Restrictive lung disease secondary to obesity: Status: Acute (8) FREDERICK (obstructive sleep apnea): Status: Acute (9) Asthma: Status: Acute Qualifiers: Asthma severity: mild Asthma persistence: persistent Asthma complication type: uncomplicated Qualified Code(s): J45.30 - Mild persistent asthma, uncomplicated (10) Status post placement of implantable loop recorder: Status: Acute (11) Benign essential HTN: Status: Acute Plan COVID-19 related hypoxia Patient was extubated on 09/02 Patient has not been showing any signs of febrile events since removal of central line Alva catheter and extubation Successfully transferred to [facility] Currently on 10 L nasal cannula We will obtain blood gas tomorrow Replenish potassium and magnesium We will give her another dose of Benadryl after her CT scan because she is complaining of itching CTA inconclusive for PE continue full dose anticoagulation Bowel regimen for constipation relieved her symptoms Mentation is better We will give another dose of Ritalin today Hemodynamically stable PT/OT Will need rehab manager telemetry updated Discontinue IV antibiotics, cultures negative, afebrile for last 48 hours She is allergic to a lot of antimicrobials including penicillin amoxicillin Levaquin however did not show any signs of rash to imipenem, MRSA PCR negative, DC linezolid Attestations Medical Necessity Statement*: She will need rehab, PT evaluation Time Spent in Patient Care: 20mins Coding Level of Care Code Acute Telecommunications Clerk for [facility] Fwd Diagnoses Fever R50.9 Acute respiratory distress syndrome (ARDS) due to 2019 novel coronavirus U07.1; J80 Bacteremia due to Staphylococcus epidermidis R78.81; B95.7 Acute kidney injury superimposed on CKD N17.9; N18.9 Acute encephalopathy G93.40 COVID-19 U07.1 Restrictive lung disease secondary to obesity J98.4; E66.9 FREDERICK (obstructive sleep apnea) G47.33 Asthma J45.30 Asthma severity: mild Asthma persistence: persistent Asthma complication type: uncomplicated Status post placement of implantable loop recorder Z95.818 Benign essential HTN I10
[2021-09-04] MEDS: potassium chloride ER 20 mEq Tablet 40 MEQ PO (10:41)
[2021-09-04] MEDS: magnesium oxide 400 mg tablet PO ×2 (10:41→17:08)
[2021-09-04] MEDS: methylphenidate 10 mg Tablet 5 MG PO (10:41)
[2021-09-04] MEDS: diphenhydrAMINE 50 mg/mL SDV 1mL 12.5 MG IVP ×2 (10:41→17:07)
--- NOTE | 2021-09-04 10:48 | PC.SOCIAL ---
IMM Update pg 2 of IMM updated and reviewed w/ patient. Copy provided and copy in chart updated.
[2021-09-04 11:11] LABS: Glucose Point of Care 382 mg/dL (70-110)
[2021-09-04] MEDS: hyDROXYzine 25 mg Capsule PO ×2 (11:43→20:47)
[2021-09-04] MEDS: LORazepam 2 mg/mL INJ 1 mL 0.5 MG IVP (12:20)
[2021-09-04 17:10] LABS: Glucose Point of Care 328 mg/dL (70-110)
--- NOTE | 2021-09-04 18:24 | PC.NURSE ---
Pt resting in bed. AAOx4, c/o hallucinations earlier today, MD aware. PT has had increased anxiety throughout the day requiring onne dose of ativan and has adamantly c/o itching r/t contrast dye that she was premedicated for this AM. aware and ordered benadryl PRN. Pt often rambles on in conversation and becomes SOB, remains in 10LNC. Reminded to stop talking and focus on breathing. Pt incont of bladder and had no BM today. Repositioned q2h and PRN. Will monitor.
[2021-09-04] MEDS: budesonide 0.5 mg/2 mL Neb INHALATION (19:52)
[2021-09-04] MEDS: pantoprazole 40 mg SDV IVP (20:47)
[2021-09-04 21:55] LABS: Glucose Point of Care 305 mg/dL (70-110)
[2021-09-05] VITALS (40 sets, daily range): BP systolic 98–148; BP diastolic 44–72; PULSE 58–114; RESP 17–40; TEMP 36.8–37.1; O2SAT 82–98
--- NOTE | 2021-09-05 01:42 | PC.RESP ---
patient was heard screaming, we found the patient woods and blue in the face, she was tachypnic and hypoxic with a spo2 reading of 70%, patient was placed on bipap of 18/10 and 100%, patient improved immediately
[2021-09-05 02:05] LABS: Blood Urea Nitrogen 46 mg/dL (8-23); Carbon Dioxide 21 mmol/L (22-29); Chloride 98 mmol/L (98-107); Glomerular Filtration Rate 45.1 mL/min (90-130); Glucose 201 mg/dL (65-115); Osmolality Calculated 300 mOsm/kg (285-295); Sodium 136 mmol/L (136-145)
[2021-09-05 02:07] LABS: Anion Gap 21.6 (5-19); Potassium 4.6 mmol/L (3.5-5.1)
--- NOTE | 2021-09-05 02:12 | PC.NURSE ---
2340 Pt keeps pulling cannula out of nose. O2 sat drops to low 80s. RT notified and responded. Sats brought up to high 80s. Tachypnea still present. Day nurse reported this as her normal.
--- NOTE | 2021-09-05 02:16 | PC.NURSE ---
0140 Pt found with o2 off and sat in 70's. RT notified. RT calls Dr. Hanley and receives bipap orders. Placed on bipap per RT. Sat increases to 100%. Lab at bedside for draw. Pt responds to bipap well. Tries to pull at it at times. Instructed to leave in place.
--- NOTE | 2021-09-05 03:20 | PC.NURSE ---
0300 Resting in bed. Resp E/U. Bipap in use. o2 sat 99%
[2021-09-05] MEDS: ipratropium-albuterol 3 mL Neb INHALATION ×5 (03:46→20:27)
[2021-09-05] MEDS: hyDROXYzine 25 mg Capsule PO (04:43)
--- NOTE | 2021-09-05 04:50 | PC.NURSE ---
0400 Pt resting with bipap in use. O2 sat 98%.
--- NOTE | 2021-09-05 04:51 | PC.NURSE ---
[id number] [employer] utilities operator in pt room and found her with bipap off sat at 69%. pt refusing to put bipap on. explained the severity of need for bipap. Cont to refuse. Willing to wear nasal cannula. O2 at 15L applied per RT. Sat 84-87%. Vistaril po given for anxiety as ordered.
[2021-09-05 05:00] LABS: ABG PCO2 38.8 mmHg (35-45); ABG PH Result 7.46 (7.35-7.45); Arterial Blood Gas Hematocrit 30.1 % (37-47); Base Excess ABG 3.1 mmol/L (-2.0-2.0); Blood Gas Allen Test Pos; Blood Gas Sample Site Radial, left; Blood Gas Sample Type Arterial; HCO3 ABG 27.2 mmol/L (22-26); Oxygen Device NC; PO2 ABG 47.1 mmHg (80.0-100.0)
--- NOTE | 2021-09-05 05:00 | PC.NURSE ---
[address] Hanley of pt status.
--- NOTE | 2021-09-05 06:17 | PC.NURSE ---
0600 Pt trying to take off heated high flow 02 that it set at 45L/90%. Confused and irritable. RT at bedside. Called to come set with pt. He says he will be here soon.
[2021-09-05 06:29] LABS: Basophils % 0.3 %; Eosinophils # 0.1 10^3/uL (0.0-0.8); Eosinophils % 0.6 %; Hematocrit 31.4 % (37.0-47.0); Hemoglobin 9.9 g/dL (11.5-15.3); Lymphocytes # 1.2 10^3/uL (0.8-4.8); Lymphocytes % 9.3 %; Mean Corpuscular HGB Conc 31.5 g/dL (30.0-36.0); Mean Corpuscular Hemoglobin 29.7 pg (28.0-34.0); Mean Corpuscular Volume 94.3 fl (81-99); Mean Platelet Volume 10.9 fL (7.4-10.4); Monocytes # 0.7 10^3/uL (0.2-0.9); Monocytes % 5.1 %; Neutrophils # 10.94 10^3/uL (1.8-7.7); Nucleated Red Blood Cells % 0.2 %; Platelet Count 161 10^3/cmm (130-400); Red Blood Count 3.33 10^6/uL (4.1-5.3); Red Cell Distribution Width 17.2 % (12.1-15.1)
[2021-09-05 06:39] LABS: Glucose Point of Care 184 mg/dL (70-110)
[2021-09-05] MEDS: budesonide 0.5 mg/2 mL Neb INHALATION ×2 (07:47→20:27)
[2021-09-05] MEDS: sodium chloride 0.9% 1,000 ML 100 ML IV ×2 (09:42→20:44)
[2021-09-05] MEDS: magnesium oxide 400 mg tablet PO ×2 (09:43→17:12)
[2021-09-05] MEDS: docusate sodium 100 mg Capsule PO ×2 (09:43→17:12)
[2021-09-05] MEDS: cholecalciferol (vitamin D3) 1,000 unit Tablet 4000 UNIT PO (09:43)
[2021-09-05] MEDS: montelukast sodium 10 mg Tablet PO (09:43)
[2021-09-05] MEDS: benzonatate 100 mg Capsule 200 MG PO ×2 (09:43→17:14)
[2021-09-05] MEDS: zinc gluconate 50 mg Tablet PO (09:43)
[2021-09-05] MEDS: ferrous gluconate 324 mg Tablet PO ×2 (09:43→17:12)
[2021-09-05] MEDS: ascorbic acid 500 mg Tablet PO (09:43)
[2021-09-05] MEDS: hyDRALAzine 10 mg Tablet PO ×2 (09:44→17:13)
[2021-09-05] MEDS: lidocaine 5% Patch 1 PATCH TOPICAL (09:44)
[2021-09-05] MEDS: nystatin 100,000 unit/mL UDC 5 mL 100000 UNIT PO ×3 (09:44→17:14)
[2021-09-05] MEDS: aspirin 81 mg EC Tablet PO (09:44)
[2021-09-05] MEDS: fluoxetine 20 mg Capsule PO (09:44)
[2021-09-05] MEDS: enoxaparin 120 mg/0.8 mL Syringe 115 MG SUBCUT ×2 (09:44→20:47)
[2021-09-05] MEDS: insulin lispro 100 unit/1 mL SUBCUT ×3 (09:45→21:19)
--- NOTE | 2021-09-05 11:25 | PM.PN ---
Subjective Subjective: Patient has been transitioned to heated high flow currently on 40 L, 80% at the bedside We had detailed discussion regarding goals of care, patient is full code for now however wants to think about her goals of care I did tell them about LTAC [facility] which got better than back to [facility] if she is requiring this much oxygen right now All of the questions were answered, patient had particular question regarding prognosis, She did not depression that she wants to leave more than 2 years, this has not been conveyed to her by any physician or the nurses, is aware She has been experiencing agitation and hallucinations Vitals/I&O/Wt Last Vital Signs Temp 98.5 F 09/05/21 07:15 Pulse 80 09/05/21 09:54 Resp 24 H 09/05/21 09:54 BP 122/72 09/05/21 07:15 Pulse Ox 94 09/05/21 09:54 09/04/21 09/05/21 09/05/21 22:59 06:59 14:59 Intake Total 600 / 1380 120 / 120 Balance 600 / 1380 120 / 120 Weight last 48 hrs Weight 116.346 kg Physical Exam Narrative: Patient is calm Clinically dehydrated Dry cracked lips Mucosal ulcers EOMI, PERRLA Nonfocal neuro exam Fatigue lethargic S1, S2 Morbidly obese Distended abdomen Heated high flow Bilateral breath sound with rhonchi Urinary Catheter Management: Alva: Cath Placed During This Visit: yes, but has since been removed by the nurse Reason for Continuing Indwelling Catheter: Accurate Measurement of Urinary Output in Critically Ill Patients Urinary Catheter Date of Insertion: 08/20/21 Urinary Catheter Time of Insertion: 22:30 Date Urinary Catheter Removed: 09/03/21 Time Urinary Catheter Discontinued: 17:00 Data : 09/05/21 06:19 09/05/21 01:40 Micro: Microbiology 08/31/21 08:46 Blood Culture - Final Blood NO GROWTH AFTER 5 DAYS 08/31/21 08:39 Blood Culture - Final Blood NO GROWTH AFTER 5 DAYS 09/02/21 03:35 Gram Stain - Final Sputum - Endotracheal Tube Aspirate Sputum Culture - Final A&P Assessment and plan (1) Fever: Status: Acute (2) Acute respiratory distress syndrome (ARDS) due to 2019 novel coronavirus: Status: Acute (3) Bacteremia due to Staphylococcus epidermidis: Status: Acute (4) Acute kidney injury superimposed on CKD: Status: Acute (5) Acute encephalopathy: Status: Acute (6) COVID-19: Status: Acute (7) Restrictive lung disease secondary to obesity: Status: Acute (8) FREDERICK (obstructive sleep apnea): Status: Acute (9) Status post placement of implantable loop recorder: Status: Acute Plan COVID-19 related hypoxia Currently oxygen requirement has worsened she is on heated high flow Repeat chest x-ray today Continue therapeutic dose of Lovenox Afebrile since extubation and removal of central line Urine output has not been calculated, I will request Alva catheter to be replaced for accurate output measurement She is dehydrated, dry cracked lips Mucosal ulcers noted Magic mouthwash, nystatin Mild jump in leukocytosis noted DEIRDRE related to dehydration, I will start gentle hydration Full code Potassium repleted Continue dysphagia level 2 diet PT/OT Might benefit from select/LTAC, spring encaser updated Attestations Medical Necessity Statement*: Continue hospitalization Time Spent in Patient Care: 20mins Coding Level of Care Code Acute Cord Maker for [facility] Fwd Diagnoses Fever R50.9 Acute respiratory distress syndrome (ARDS) due to 2019 novel coronavirus U07.1; J80 Bacteremia due to Staphylococcus epidermidis R78.81; B95.7 Acute kidney injury superimposed on CKD N17.9; N18.9 Acute encephalopathy G93.40 COVID-19 U07.1 Restrictive lung disease secondary to obesity J98.4; E66.9 FREDERICK (obstructive sleep apnea) G47.33 Status post placement of implantable loop recorder Z95.818
--- NOTE | 2021-09-05 12:12 | PC.OT ---
OT tx attempted 2x this a.m. (1000 and 1145). 1st time pt confused and agitated. here and attempting to feed her ice cream to calm her down. Later attempt pt was sleeping soundly and therapists unable to arouse. Will attempt again later today if possible.
[2021-09-05] MEDS: cetylpyridinium Lozenge 1 EACH MUCOUS MEM (17:15)
[2021-09-05 17:25] LABS: Glucose Point of Care 269 mg/dL (70-110)
[2021-09-05 17:25] LABS: Glucose Point of Care 180 mg/dL (70-110)
--- NOTE | 2021-09-05 18:35 | PC.NURSE ---
OT CALLED TO BERE JAMES. PT SAFELY TRANSFERRED TO ICU.
[2021-09-05] MEDS: pantoprazole 40 mg SDV IVP (20:45)
[2021-09-05 21:13] LABS: Glucose Point of Care 219 mg/dL (70-110)
[2021-09-05] MEDS: dexmedeTOMIDine 0.9 % NaCL 400 MCG/100 ML PREMIX IV (22:11)
[2021-09-06] VITALS (104 sets, daily range): BP systolic 51–198; BP diastolic 33–114; PULSE 61–99; RESP 13–60; TEMP 37.2; O2SAT 69–100
[2021-09-06] MEDS: ipratropium-albuterol 3 mL Neb INHALATION ×7 (01:00→23:32)
[2021-09-06 04:47] LABS: Blood Gas Sample Type Arterial
[2021-09-06 05:05] LABS: Basophils % 0.4 %; Eosinophils # 0.7 10^3/uL (0.0-0.8); Hematocrit 26.4 % (37.0-47.0); Hemoglobin 8.2 g/dL (11.5-15.3); Lymphocytes # 1.5 10^3/uL (0.8-4.8); Lymphocytes % 19.5 %; Mean Corpuscular HGB Conc 31.1 g/dL (30.0-36.0); Mean Corpuscular Hemoglobin 29.8 pg (28.0-34.0); Mean Platelet Volume 11.3 fL (7.4-10.4); Monocytes # 0.5 10^3/uL (0.2-0.9); Monocytes % 6.3 %; Neutrophils # 4.79 10^3/uL (1.8-7.7); Neutrophils % 64.3 %; Nucleated Red Blood Cells % 0.4 %; Platelet Count 135 10^3/cmm (130-400); Red Blood Count 2.75 10^6/uL (4.1-5.3); Red Cell Distribution Width 17.6 % (12.1-15.1); White Blood Count 7.5 10^3/uL (4.0-10.0)
[2021-09-06 05:10] LABS: ABG PCO2 39.6 mmHg (35-45); ABG PH Result 7.45 (7.35-7.45); Arterial Blood Gas Hematocrit 25.2 % (37-47); Base Excess ABG 3.2 mmol/L (-2.0-2.0); Blood Gas Allen Test Pos; Blood Gas Sample Site Radial, left; HCO3 ABG 27.4 mmol/L (22-26); PO2 ABG 70.5 mmHg (80.0-100.0)
[2021-09-06 05:12] LABS: Oxygen Device HHFNC
[2021-09-06 05:32] LABS: Blood Urea Nitrogen 46 mg/dL (8-23); Calcium 10.8 mg/dL (8.5-10.5); Carbon Dioxide 25 mmol/L (22-29); Chloride 107 mmol/L (98-107); Glomerular Filtration Rate 62.8 mL/min (90-130); Glucose 162 mg/dL (65-115); Osmolality Calculated 309 mOsm/kg (285-295); Sodium 142 mmol/L (136-145)
[2021-09-06 05:41] LABS: Anion Gap 14.2 (5-19); Potassium 4.2 mmol/L (3.5-5.1)
[2021-09-06] MEDS: sodium chloride 0.9% 1,000 ML 100 ML IV ×3 (06:07→22:51)
[2021-09-06 07:22] LABS: Glucose Point of Care 141 mg/dL (70-110)
--- NOTE | 2021-09-06 07:48 | XRR_ITS ---
PROCEDURE INFORMATION: Exam: XR Chest Exam date and time: 09/06/2021 7:48 AM Age: 66 years old Clinical indication: Shortness of breath; Additional info: Change in oxygen requirement TECHNIQUE: Imaging protocol: XR of the chest. Views: 1 view. Total images: 1 COMPARISON: CR (CHEST, ) 08/31/2021 9:29 AM FINDINGS: Tubes, catheters and devices: There has been interval removal of the endotracheal tube. Interval removal of right jugular line. There has been interval removal of the enteric tube. Lungs: Bilateral pulmonary opacities are again noted and have shown interval worsening from the prior exam. Pleural spaces: Unremarkable. No pleural effusion. No pneumothorax. Heart/Mediastinum: Loop cardiac recorder present. Low lung volumes are present, accentuating cardiac size and pulmonary markings. Mild cardiomegaly. Bones/joints: Osseous structures are unchanged from the prior exam. XR/XR chest 1V portable [id number] IMPRESSION: 1. Low lung volumes are present, accentuating cardiac size and pulmonary markings. 2. Mild cardiomegaly. 3. Bilateral pulmonary opacities are again noted and have shown interval worsening from the prior exam.
--- NOTE | 2021-09-06 07:54 | PC.NURSE ---
change in condition RR 50 O2 78 on 70% HHF, Dr. Reed came to bedside gave v.o. for morphine IVP q4 PRN, CXR and place on Bipap
[2021-09-06] MEDS: budesonide 0.5 mg/2 mL Neb INHALATION ×2 (07:57→20:07)
[2021-09-06] MEDS: insulin lispro 100 unit/1 mL SUBCUT ×4 (08:55→22:57)
--- NOTE | 2021-09-06 09:03 | PC.NURSE ---
Dr. Reed approved holding po meds at this time
[2021-09-06] MEDS: enoxaparin 120 mg/0.8 mL Syringe 115 MG SUBCUT ×2 (09:11→20:11)
[2021-09-06] MEDS: lidocaine 5% Patch 1 PATCH TOPICAL (09:14)
--- NOTE | 2021-09-06 09:30 | PC.OT ---
OT tx attempted at this time. Pt is agitated and having difficulty keeping BiPap on. Nurse requests therapies to be held for now. Will check on pt status again tomorrow.
[2021-09-06] MEDS: morphine 4 mg/mL SDV 1 mL 2 MG IVP ×3 (09:35→22:18)
--- NOTE | 2021-09-06 10:29 | PC.NURSE ---
Patient refusing bipap, attempted multiple times to take off, not listening to education on how important bipap is. o2 84 RR 40 to 50. placed on NRB, Dr. cotto at bedside, gave v.o. for medical restraints in order to keep bipap on as patient is refusing intubation. HCP spoke with who is to come to facility
[2021-09-06] MEDS: dexmedeTOMIDine 0.9 % NaCL 400 MCG/100 ML PREMIX 8.73 MCG IV (10:54)
--- NOTE | 2021-09-06 11:05 | PC.SOCIAL ---
IMM Update Pg. 2 of IMM updated. Initialed, dated, and timed copy in chart.
--- NOTE | 2021-09-06 11:57 | PC.NURSE ---
BP 51/33, fluids running bolused and placed in trendelenburg, dr. Reed notified, approved order for levophed
[2021-09-06] MEDS: norepinephrine 8 MG in dextrose 5 % 500 ML 7.62 MG IV (12:04)
[2021-09-06 12:38] LABS: Glucose Point of Care 237 mg/dL (70-110)
--- NOTE | 2021-09-06 12:59 | PC.NURSE ---
O2 dropped to low 80s, placed back on bipap per RT. stated he is okay with intubation if needed dr. Reed notified
--- NOTE | 2021-09-06 14:36 | PM.PN ---
Subjective Subjective: Patient desaturates quickly when off BiPAP, currently on nonrebreather mask, she is not able to tolerate BiPAP at all, she auto PEEP I discussed intubation, is here at the bedside, patient herself has been very reluctant and stating that she does not want intubation at any corley, This is a difficult situation, I have asked Dr. Alaniz to assess the patient to rule out depression that would affect her decision-making capacity Multiple family meetings done today, patient's and mother updated at the bedside with Dr. Alaniz Vitals/I&O/Wt Last Vital Signs Temp 98.5 F 09/05/21 16:00 Pulse 76 09/06/21 13:08 Resp 30 H 09/06/21 13:00 BP 99/49 09/06/21 08:30 Pulse Ox 94 09/06/21 13:08 09/05/21 09/06/21 09/06/21 22:59 06:59 14:59 Intake Total 1120 / 1240 974.126 / 2214.126 64.207 / 64.207 Output Total 450 / 450 250 / 700 Balance 670 / 790 724.126 / 1514.126 64.207 / 64.207 Weight last 48 hrs Weight 116.755 kg Physical Exam Narrative: Morbid obese female Currently on nonrebreather mask saturating 89 to 90% Systolic blood pressure 99 mmHg Start fluid and levo Soft abdomen, distended, obesity Patient is awake and alert nonfocal neuro exam Able to understand all my questions Able to move her extremities Alva catheter draining yellow-colored urine Bilateral breath sounds with rhonchi at the bases Urinary Catheter Management: Alva: Cath Placed During This Visit: yes, but has since been removed by the nurse Reason for Continuing Indwelling Catheter: Accurate Measurement of Urinary Output in Critically Ill Patients Urinary Catheter Date of Insertion: 08/20/21 Urinary Catheter Time of Insertion: 22:30 Date Urinary Catheter Removed: 09/03/21 Time Urinary Catheter Discontinued: 17:00 Data : 09/07/21 04:05 09/07/21 04:05 Micro: Microbiology 08/31/21 08:46 Blood Culture - Final Blood NO GROWTH AFTER 5 DAYS 08/31/21 08:39 Blood Culture - Final Blood NO GROWTH AFTER 5 DAYS A&P Assessment and plan (1) Fever: Status: Acute (2) Acute respiratory distress syndrome (ARDS) due to 2019 novel coronavirus: Status: Acute (3) Bacteremia due to Staphylococcus epidermidis: Status: Acute (4) Acute kidney injury superimposed on CKD: Status: Acute (5) COVID-19: Status: Acute (6) Restrictive lung disease secondary to obesity: Status: Acute (7) RFEDERICK (obstructive sleep apnea): Status: Acute (8) Asthma: Status: Acute Qualifiers: Asthma complication type: uncomplicated Asthma persistence: persistent Asthma severity: mild Qualified Code(s): J45.30 - Mild persistent asthma, uncomplicated (9) Benign essential HTN: Status: Acute (10) Obesity: Status: Acute Qualifiers: Body mass index: BMI 38.0-38.9 Obesity classification: adult class 2 (BMI 35 - 39.9) Obesity type: due to excess calories Serious obesity comorbidity presence: with serious comorbidity Qualified Code(s): E66.01 - Morbid (severe) obesity due to excess calories; Z68.38 - Body mass index [BMI] 38.0-38.9, adult Plan COVID-19 related hypoxia At risk of reintubation Dr. Alaniz to assess the patient trouble depression that would affect her decision-making capacity Patient is adamantly refusing intubation and stating that she does not want any chest compressions or intubation However is stating that we should give her a chance and intubate if needed No febrile events Hypotensive episode noted, likely related to Precedex, started fluids and levo Chest x-ray shows worsening of infiltrate related to COVID-19 CTA inconclusive for PE She has been getting therapeutic dose of Lovenox No febrile events since removal of central line She is not on any antibiotics anymore Patient does not have capacity to make decision, will keep her full code, intubate her if she gets worse Spent about 2 hours Attestations Medical Necessity Statement*: will follow up with Dr. Alaniz recommendation, patient at risk of intubation Time Spent in Patient Care: 120min Critical Care Time: 40mins Coding Level of Care Code Acute Waste/Materials Exchange Specialist for Teodoro Leonora Diagnoses Fever R50.9 Acute respiratory distress syndrome (ARDS) due to 2019 novel coronavirus U07.1; J80 Bacteremia due to Staphylococcus epidermidis R78.81; B95.7 Acute kidney injury superimposed on CKD N17.9; N18.9 COVID-19 U07.1 Restrictive lung disease secondary to obesity J98.4; E66.9 FREDERICK (obstructive sleep apnea) G47.33 Asthma J45.30 Asthma complication type: uncomplicated Asthma persistence: persistent Asthma severity: mild Benign essential HTN I10 Obesity E66.01; Z68.38 Body mass index: BMI 38.0-38.9 Obesity classification: adult class 2 (BMI 35 - 39.9) Obesity type: due to excess calories Serious obesity comorbidity presence: with serious comorbidity
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
[2021-09-06] MEDS: dexmedeTOMIDine 0.9 % NaCL 400 MCG/100 ML PREMIX 29.09 MCG IV (15:26)
[2021-09-06 17:22] LABS: Glucose Point of Care 229 mg/dL (70-110)
[2021-09-06] MEDS: benzonatate 100 mg Capsule 200 MG PO (20:11)
[2021-09-06] MEDS: nystatin 100,000 unit/mL UDC 5 mL 100000 UNIT PO (20:12)
[2021-09-06] MEDS: hyDRALAzine 10 mg Tablet PO (20:13)
[2021-09-06] MEDS: dexmedeTOMIDine 0.9 % NaCL 400 MCG/100 ML PREMIX 17.45 MCG IV (20:14)
[2021-09-06] MEDS: pantoprazole 40 mg SDV IVP (20:14)
[2021-09-06] MEDS: lanolin oint 7 gm 1 APPLIC TOPICAL (20:18)
[2021-09-06] MEDS: ondansetron 2 mg/ML SDV 2 mL 4 MG IVP (20:18)
[2021-09-06 20:37] LABS: Glucose Point of Care 187 mg/dL (70-110)
--- NOTE | 2021-09-06 22:42 | XRR_ITS ---
PROCEDURE INFORMATION: Exam: XR Chest Exam date and time: 09/06/2021 10:42 PM Age: 66 years old Clinical indication: Dyspnea; Additional info: SOB TECHNIQUE: Imaging protocol: XR of the chest. Views: 1 view. COMPARISON: 1. CR (CHEST, ) 09/06/2021 9:[address] angio chest PE protcl [id number] 09/04/2021 8:27 AM 3. CR (CHEST, ) 08/31/2021 9:29 AM FINDINGS: Tubes, catheters and devices: Monitor leads project over the chest. Lungs: Low lung volumes. Bilateral ground-glass opacities consistent with diffuse interstitial pneumonia. Pleural spaces: No significant costophrenic angle blunting. No evidence of pneumothorax. Heart/Mediastinum: Heart size is stable. Obscured cardiac borders. Bones/joints: No acute osseous abnormality. Soft tissues: Large body habitus. XR/XR chest 1V portable [id number] IMPRESSION: Bilateral ground-glass opacities consistent with diffuse interstitial pneumonia.
[2021-09-06 22:47] LABS: ABG PCO2 49.9 mmHg (35-45); Base Excess ABG -2.3 mmol/L (-2.0-2.0); Blood Gas Allen Test Pos; Blood Gas Sample Site Radial, left; Blood Gas Sample Type Arterial; Carboxyhemoglobin 1.3 %THgb (0.4-20.1); HCO3 ABG 24.4 mmol/L (22-26); HGB O2 Sat 96.5 % (95-100); Methemoglobin 0.7 % (0.4-1.5); Oxygen Device BIPAP; Oxygen Saturation ABG 98.5; Potassium Level - ABG 4.6 mmol/L (3.5-5.0); Total Hemoglobin 9.1 g/dL (12-16)
[2021-09-06] MEDS: LORazepam 2 mg/mL INJ 1 mL 1 MG IVP ×2 (22:50→23:04)
[2021-09-07] VITALS (104 sets, daily range): BP systolic 85–230; BP diastolic 50–141; PULSE 62–106; RESP 21–70; TEMP 36.7–36.9; O2SAT 82–100
[2021-09-07] MEDS: dexmedeTOMIDine 0.9 % NaCL 400 MCG/100 ML PREMIX 34.9 MCG IV ×4 (00:19→07:58)
[2021-09-07] MEDS: ipratropium-albuterol 3 mL Neb INHALATION ×6 (03:20→23:17)
[2021-09-07 03:27] LABS: ABG PCO2 47.1 mmHg (35-45); ABG PH Result 7.35 (7.35-7.45); Arterial Blood Gas Hematocrit 23.7 % (37-47); Blood Gas Allen Test Pos; Blood Gas Sample Type Arterial; HCO3 ABG 25.8 mmol/L (22-26)
[2021-09-07 03:28] LABS: Blood Gas Sample Site Radial, left; Oxygen Device BIPAP
[2021-09-07] MEDS: morphine 4 mg/mL SDV 1 mL 2 MG IVP (04:17)
[2021-09-07] MEDS: LORazepam 2 mg/mL INJ 1 mL 1 MG IVP (04:44)
[2021-09-07 04:48] LABS: Basophils % 0.3 %; Eosinophils # 0.9 10^3/uL (0.0-0.8); Eosinophils % 12.1 %; Hematocrit 26.5 % (37.0-47.0); Lymphocytes # 0.9 10^3/uL (0.8-4.8); Lymphocytes % 11.3 %; Mean Corpuscular HGB Conc 30.2 g/dL (30.0-36.0); Mean Corpuscular Hemoglobin 29.9 pg (28.0-34.0); Mean Corpuscular Volume 98.9 fl (81-99); Mean Platelet Volume 11.3 fL (7.4-10.4); Monocytes # 0.5 10^3/uL (0.2-0.9); Monocytes % 6.4 %; Neutrophils # 5.21 10^3/uL (1.8-7.7); Neutrophils % 69.2 %; Nucleated Red Blood Cells # 0.1 /100WBC; Nucleated Red Blood Cells % 0.7 %; Platelet Count 131 10^3/cmm (130-400); Red Blood Count 2.68 10^6/uL (4.1-5.3); Red Cell Distribution Width 17.5 % (12.1-15.1); White Blood Count 7.5 10^3/uL (4.0-10.0)
[2021-09-07 05:05] LABS: Blood Urea Nitrogen 44 mg/dL (8-23); Calcium 9.7 mg/dL (8.5-10.5); Carbon Dioxide 22 mmol/L (22-29); Chloride 109 mmol/L (98-107); Glomerular Filtration Rate 62.8 mL/min (90-130); Glucose 201 mg/dL (65-115); Osmolality Calculated 311 mOsm/kg (285-295); Sodium 142 mmol/L (136-145)
[2021-09-07 05:48] LABS: Anion Gap 15.8 (5-19); Potassium 4.8 mmol/L (3.5-5.1)
[2021-09-07 06:23] LABS: Glucose Point of Care 192 mg/dL (70-110)
[2021-09-07] MEDS: budesonide 0.5 mg/2 mL Neb INHALATION ×2 (08:03→19:55)
[2021-09-07 08:47] LABS: Glucose Point of Care 180 mg/dL (70-110)
[2021-09-07] MEDS: insulin lispro 100 unit/1 mL SUBCUT ×3 (08:50→17:06)
--- NOTE | 2021-09-07 10:20 | PC.NURSE ---
intubation approximately 1000 O2 sat 78, rapid labored RR, patient unable to recover, Dr. Reed at bedside determined to intubate. intubated at 10:05 after 25 mg etomidate and 150 mg Rocuronium, positive color change, 24 at the lip, notified
--- NOTE | 2021-09-07 10:25 | XRR_ITS ---
PROCEDURE INFORMATION: Exam: XR Chest Exam date and time: 09/07/2021 10:25 AM Age: 66 years old Clinical indication: Device placement; Other: Et and og placement; Additional info: Intubation/og tube verification TECHNIQUE: Imaging protocol: XR of the chest. Views: 1 view. COMPARISON: CR (CHEST, ) 09/06/2021 10:55 PM FINDINGS: Tubes, catheters and devices: Endotracheal tube terminates approximately 3.3 cm above the patrick. Enteric tube passes into the stomach. Loop recording device projects over the left hemithorax. Lungs: Similar bilateral interstitial and airspace opacities. Pleural spaces: Unremarkable. No pleural effusion. No pneumothorax. Heart/Mediastinum: Unremarkable. No cardiomegaly. Bones/joints: Unremarkable. Organs: Cholecystectomy clips. XR/XR chest 1V portable [id number] IMPRESSION: 1. Similar bilateral interstitial and airspace opacities. 2. Endotracheal tube terminates approximately 3.3 cm above the patrick. 3. Enteric tube passes into the stomach.
[2021-09-07] MEDS: rocuronium 10 mg/mL INJ 5mL IVP (10:28)
[2021-09-07] MEDS: lidocaine 5% Patch 1 PATCH TOPICAL (10:31)
[2021-09-07] MEDS: enoxaparin 120 mg/0.8 mL Syringe 115 MG SUBCUT ×2 (10:33→20:51)
[2021-09-07] MEDS: propofol 1,000 MG/100 ML INJ 10.83 MG IV ×3 (11:03→16:16)
[2021-09-07 11:11] LABS: ABG PCO2 59.7 mmHg (35-45); ABG PH Result 7.25 (7.35-7.45); Alveolar-Arterial Oxygen Gradi 71.4 mmHg (5-10); Arterial Blood Gas Hematocrit 22.1 % (37-47); Base Excess ABG -1.3 mmol/L (-2.0-2.0); Blood Gas Allen Test Pos; Blood Gas Operator Identificat CAK; Blood Gas Sample Site Radial, left; Blood Gas Sample Type Arterial; Carboxyhemoglobin 1.6 %THgb (0.4-20.1); HCO3 ABG 26.1 mmol/L (22-26); HGB O2 Sat 94.9 % (95-100); Ionized Calcium Level - ABG 1.4 mmol/L (1.1-1.4); Methemoglobin 0.9 % (0.4-1.5); Oxygen Device VENT; Oxygen Saturation ABG 97.3; Potassium Level - ABG 4.2 mmol/L (3.5-5.0); Total Hemoglobin 7.2 g/dL (12-16)
--- NOTE | 2021-09-07 11:12 | P.PN_ITS ---
Subjective Subjective: Overnight patient was very agitated required multiple sedatives to keep her calm this morning her breathing was in 40-50 range, she was getting diaphoretic, complexion was changing, decision was made to intubate her Etomidate 25 mg was used along rocuronium 150 mg She was hyperoxygenated with BiPAP Normal vitals before intubation Endotracheal tube was placed on first attempt without any complications, her O2 sat dropped to low 70s during intubation which improved immediately with Ambu bag and then vent settings Chest x-ray and ABG requested Plan to place art and central line Vitals/I&O/Wt Last Vital Signs Temp 98.0 F 09/07/21 04:00 Pulse 99 09/07/21 10:30 Resp 24 H 09/07/21 10:10 BP 184/103 09/07/21 10:30 Pulse Ox 99 09/07/21 10:30 09/06/21 09/07/21 09/07/21 22:59 06:59 14:59 Intake Total 1872.554 / 1936.761 243.043 / 2179.804 100 / 100 Output Total 300 / 300 Balance 1572.554 / 1636.761 243.043 / 1879.804 100 / 100 Weight last 48 hrs Weight 52.617 kg Weight 116.755 kg Physical Exam Narrative: Patient was very drowsy Pale complexion Diaphoretic Tachypneic Was not responding to questions appropriately Distended abdomen Neuro exam was limited Patient intubated and sedated Clinically hard to assess her volume status but she has dry cracked lips No signs of edema Alva catheter with yellow-colored urine Urinary Catheter Management: Alva: Cath Placed During This Visit: yes, but has since been removed by the nurse Reason for Continuing Indwelling Catheter: Accurate Measurement of Urinary Output in Critically Ill Patients Urinary Catheter Date of Insertion: 08/20/21 Urinary Catheter Time of Insertion: 22:30 Date Urinary Catheter Removed: 09/03/21 Time Urinary Catheter Discontinued: 17:00 Data : 09/07/21 04:05 09/07/21 04:05 A&P Assessment and plan (1) PTSD (post-traumatic stress disorder): Status: Acute (2) Fever: Status: Acute (3) Acute respiratory distress syndrome (ARDS) due to 2019 novel coronavirus: Status: Acute (4) Bacteremia due to Staphylococcus epidermidis: Status: Acute (5) Acute kidney injury superimposed on CKD: Status: Acute (6) Acute encephalopathy: Status: Acute (7) COVID-19: Status: Acute (8) Obesity: Status: Acute Qualifiers: Obesity type: due to excess calories Obesity classification: adult class 2 (BMI 35 - 39.9) Serious obesity comorbidity presence: with serious comorbidity Body mass index: BMI 38.0-38.9 Qualified Code(s): E66.01 - Morbid (severe) obesity due to excess calories; Z68.38 - Body mass index [BMI] 38.0- 38.9, adult (9) FREDERICK (obstructive sleep apnea): Status: Acute (10) COVID-19: Status: Acute Plan Covid related respiratory failure requiring mechanical ventilation First intubation 08/26 Patient received steroids, remdesivir, Actemra 08/20 Initially was on heparin drip which was changed after CTA chest She was febrile and received broad-spectrum antibiotics however cultures remain negative, antibiotics were discontinued Blood culture showed contamination Patient was extubated on 09/02 to 7 L nasal cannula and she did well until 09/07 Patient got intubated state after getting etomidate and rocuronium ABG showed improvement in oxygenation Peak pressure of 40 for tidal volume 300 respiratory 24 FiO2 90% We will continue DuoNeb and steroids to relieve bronchoconstriction Hypercapnia respiratory acidosis noted, with bronchodilators plan to improve her tidal volume once peak pressure is below 30 No febrile events since removal of endotracheal tube and central line Acute on chronic kidney disease: Improved CTA did not show PE Patient does not carry capacity to make decision, appreciate neuropsych evaluation Patient is very history of type 2 diabetes, hemoglobin A1c 6.7 Repeat D-dimer History of anxiety PTSD Full code Family updated My plan is to transfer this patient to LTAC once FiO2 is between 60 to 70% will discuss case with Dr. Avelar Attestations Medical Necessity Statement*: Continue ICU management Time Spent in Patient Care: 40min Coding Level of Care Code Acute Shredding Machine Operator for Janet Lea Diagnoses PTSD (post-traumatic stress disorder) F43.10 Fever R50.9 Acute respiratory distress syndrome (ARDS) due to 2019 novel coronavirus U07.1; J80 Bacteremia due to Staphylococcus epidermidis R78.81; B95.7 Acute kidney injury superimposed on CKD N17.9; N18.9 Acute encephalopathy G93.40 COVID-19 U07.1 Obesity E66.01; Z68.38 Obesity type: due to excess calories Obesity classification: adult class 2 (BMI 35 - 39.9) Serious obesity comorbidity presence: with serious comorbidity Body mass index: BMI 38.0-38.9 FREDERICK (obstructive sleep apnea) G47.33 COVID-19 U07.1
[2021-09-07 11:23] LABS: Glucose Point of Care 172 mg/dL (70-110)
--- NOTE | 2021-09-07 12:07 | PC.OT ---
OT tx held at this time. Pt status declined was intubated this a.m. JAMA to consult OTR for reassessment.
[2021-09-07] MEDS: sodium chloride 0.9% 500 ML IV (13:32)
[2021-09-07] MEDS: cisatracurium 100 MG in sodium chloride 0.9% 50 ML IV ×2 (13:33→21:59)
--- NOTE | 2021-09-07 13:37 | PM.ACPR ---
Acute Procedures Central Line Placement: Right Femoral: Time out performed: Yes Patient placed on monitor/pulse ox: Yes MD prep: mask, gown and gloves Central line prep: Povidone-Iodine 1%, Chlorhexidine scrub and sterile drapes applied Local anesthesia used: other anesthetic Ultrasound used for placement: Yes Central line lumen inserted: triple Post procedure: sutured in place, good blood return, all ports aspirated, flushed, capped and sterile dressing applied Post procedure x-ray: other Patient tolerated procedure: no complications Complications: none Additional comments: Central line was required initiation of pressor agents for proning secondary to COVID-19 ARDS Consent was taken from her Right femoral Central line was placed without any complications
--- NOTE | 2021-09-07 13:38 | PM.ACPR ---
Acute Procedures Arterial Line: Time out performed: Yes Size (Gauge): 20 Technique used: guide wire technique Post-Procedure: line sutured into place and dry sterile dressing placed Patient tolerated procedure: well and no complications Complications: none Site: left and radial Additional comments: Artline was placed for blood pressure management and ABGs, patient is intubated, consent taken from her Left radial art line placed without any complications,
--- NOTE | 2021-09-07 13:40 | PM.ACPR ---
Acute Procedures Arterial Line: Size (Gauge): 20 Intubation: Sedative: etomidate Mg given: 25 Paralytic: rocuronium Mg given: 150 Assist device used: fiber optic device ET tube size: 8 ET tube uncuffed: No Tube secured depth (cm): 24 Tube secured location: lips Tube placement confirmation: visualized tube passing through cords, equal breath sounds bilaterally, no breath sounds over epigastrium, confirmation by capnometry and color change noted Patient tolerated procedure: well and no complications Intubation complications: none Additional comments: Consent was taken from her Indication: Tachypneic on BiPAP failed Precedex
[2021-09-07] MEDS: levalbuterol 1.25 mg/3 mL Neb INHALATION ×2 (14:52→23:17)
[2021-09-07] MEDS: benzonatate 100 mg Capsule 200 MG PO (15:08)
[2021-09-07] MEDS: nystatin 100,000 unit/mL UDC 5 mL 100000 UNIT PO ×3 (15:08→20:52)
[2021-09-07] MEDS: metroNIDAZOLE IV 500 MG/100 ML PREMIX 100 MG IV ×2 (15:10→21:01)
--- NOTE | 2021-09-07 16:00 | PC.NURSE ---
Shift note Intubation was done early this shift. Right femoral central line and left radial ART line was placed. Patients family was at bedside shortly after. All questions answered.
[2021-09-07 16:18] LABS: Arterial Blood Gas Hematocrit 26.6 % (37-47); Base Excess ABG -5.1 mmol/L (-2.0-2.0); Blood Gas Operator Identificat CAK; Blood Gas Sample Site Not specified; Blood Gas Sample Type Arterial; HCO3 ABG 23.9 mmol/L (22-26); Oxygen Device VENT; PO2 ABG 81.5 mmHg (80.0-100.0)
[2021-09-07 16:19] LABS: ABG PH Result 7.16 (7.35-7.45)
[2021-09-07] MEDS: docusate sodium 100 mg Capsule PO (17:06)
[2021-09-07] MEDS: ferrous gluconate 324 mg Tablet PO (17:06)
[2021-09-07] MEDS: magnesium oxide 400 mg tablet PO (17:06)
[2021-09-07] MEDS: ipratropium 0.5 mg/2.5 mL Neb INHALATION ×2 (17:20→23:17)
[2021-09-07 17:25] LABS: Alveolar-Arterial Oxygen Gradi 35.6 mmHg (5-10); Arterial Blood Gas Hematocrit 29.1 % (37-47); Base Excess ABG -4.5 mmol/L (-2.0-2.0); Blood Gas Allen Test Pos; Blood Gas Operator Identificat CAK; Blood Gas Sample Site ARTLINE; Blood Gas Sample Type Arterial; Carboxyhemoglobin 1.6 %THgb (0.4-20.1); HCO3 ABG 24.4 mmol/L (22-26); HGB O2 Sat 90.6 % (95-100); Ionized Calcium Level - ABG 1.3 mmol/L (1.1-1.4); Methemoglobin 0.9 % (0.4-1.5); Oxygen Device VENT; Oxygen Saturation ABG 92.9; PO2 ABG 78.8 mmHg (80.0-100.0); Potassium Level - ABG 4.3 mmol/L (3.5-5.0); Total Hemoglobin 9.5 g/dL (12-16)
[2021-09-07 17:27] LABS: ABG PCO2 66.2 mmHg (35-45); ABG PH Result 7.18 (7.35-7.45)
--- NOTE | 2021-09-07 17:33 | PM.MISC ---
Miscellaneous Note Note: Patient was intubated today for worsening of tachypnea After intubation hypoxia improved however respiratory acidosis has not improving, case has been discussed with [employer] Dr. Avelar We have tried scheduled bronchodilators however her peak and plateau pressure are not decreasing Worsening PCO2 most likely consistent with underlying development of pulmonary hypertension and fibrotic stage of ARDS At this point we have maxed our vent settings for her respiratory acidosis These changes were conveyed to the family as well, in case of any further worsening does not want any chest compressions, if she gets worse overnight he would like to make her comfort care CODE STATUS changed to DNR/DNI Continue medical management Continue paralytics for proning and see if we can keep her pH at least around 7.25 RT, ICU nurse updated
[2021-09-07 17:34] LABS: Glucose Point of Care 142 mg/dL (70-110)
[2021-09-07] MEDS: FUROsemide 10 mg/mL SDV 10mL 60 MG IVP (17:48)
--- NOTE | 2021-09-07 18:51 | PC.NURSE ---
Proned at 1530
[2021-09-07] MEDS: propofol 1,000 MG/100 ML INJ 36.09 MG IV ×2 (19:20→22:01)
[2021-09-07] MEDS: pantoprazole 40 mg SDV IVP (20:52)
[2021-09-07 21:16] LABS: Glucose Point of Care 132 mg/dL (70-110)
[2021-09-08] VITALS (53 sets, daily range): BP systolic 98–181; BP diastolic 49–99; PULSE 94–115; RESP 33–60; TEMP 36.4–37.2; O2SAT 68–95
[2021-09-08] MEDS: propofol 1,000 MG/100 ML INJ 50.53 MG IV ×7 (00:14→13:09)
[2021-09-08] MEDS: cisatracurium 100 MG in sodium chloride 0.9% 50 ML 6.31 MG IV ×2 (02:26→09:42)
[2021-09-08] MEDS: ipratropium-albuterol 3 mL Neb INHALATION ×4 (03:17→15:39)
[2021-09-08] MEDS: levalbuterol 1.25 mg/3 mL Neb INHALATION (03:17)
[2021-09-08 03:51] LABS: ABG PCO2 53.9 mmHg (35-45); ABG PH Result 7.24 (7.35-7.45); Arterial Blood Gas Hematocrit 25.1 % (37-47); Blood Gas Allen Test Pos; Blood Gas Sample Site Radial, left; Blood Gas Sample Type Arterial; HCO3 ABG 23.3 mmol/L (22-26); Oxygen Device VENT; PO2 ABG 54.2 mmHg (80.0-100.0)
[2021-09-08] MEDS: metroNIDAZOLE IV 500 MG/100 ML PREMIX 100 MG IV ×2 (04:57→13:07)
[2021-09-08 04:59] LABS: Glucose Point of Care 161 mg/dL (70-110)
[2021-09-08 05:10] LABS: Basophils # 0.1 10^3/uL (0.0-0.1); Basophils % 0.4 %; Eosinophils # 2.2 10^3/uL (0.0-0.8); Eosinophils % 19.6 %; Hematocrit 27.8 % (37.0-47.0); Hemoglobin 8.7 g/dL (11.5-15.3); Lymphocytes # 1.4 10^3/uL (0.8-4.8); Lymphocytes % 12.1 %; Mean Corpuscular HGB Conc 31.3 g/dL (30.0-36.0); Mean Corpuscular Hemoglobin 31.2 pg (28.0-34.0); Mean Corpuscular Volume 99.6 fl (81-99); Mean Platelet Volume 10.2 fL (7.4-10.4); Monocytes # 1.2 10^3/uL (0.2-0.9); Monocytes % 10.5 %; Neutrophils # 6.35 10^3/uL (1.8-7.7); Neutrophils % 56.8 %; Nucleated Red Blood Cells # 0.1 /100WBC; Nucleated Red Blood Cells % 1.2 %; Platelet Count 218 10^3/cmm (130-400); Red Blood Count 2.79 10^6/uL (4.1-5.3); Red Cell Distribution Width 18.1 % (12.1-15.1); White Blood Count 11.2 10^3/uL (4.0-10.0)
[2021-09-08 06:16] LABS: Anion Gap 18.4 (5-19); Blood Urea Nitrogen 41 mg/dL (8-23); Calcium 9.7 mg/dL (8.5-10.5); Carbon Dioxide 22 mmol/L (22-29); Chloride 108 mmol/L (98-107); Glomerular Filtration Rate 55.6 mL/min (90-130); Glucose 181 mg/dL (65-115); Osmolality Calculated 313 mOsm/kg (285-295); Potassium 4.4 mmol/L (3.5-5.1); Sodium 144 mmol/L (136-145)
[2021-09-08 07:22] LABS: Glucose Point of Care 166 mg/dL (70-110)
[2021-09-08] MEDS: budesonide 0.5 mg/2 mL Neb INHALATION (07:48)
--- NOTE | 2021-09-08 08:37 | PC.SOCIAL ---
IMM not Updated IMM not updated. Pt is not expected to d/c within the next 24-48hrs.
[2021-09-08] MEDS: insulin lispro 100 unit/1 mL SUBCUT (08:44)
[2021-09-08] MEDS: ferrous gluconate 324 mg Tablet PO (11:14)
[2021-09-08] MEDS: zinc gluconate 50 mg Tablet PO (11:14)
[2021-09-08] MEDS: cholecalciferol (vitamin D3) 1,000 unit Tablet 4000 UNIT PO (11:15)
[2021-09-08] MEDS: montelukast sodium 10 mg Tablet PO (11:16)
[2021-09-08] MEDS: aspirin 81 mg EC Tablet PO (11:16)
[2021-09-08] MEDS: ascorbic acid 500 mg Tablet PO (11:16)
[2021-09-08] MEDS: magnesium oxide 400 mg tablet PO (11:16)
[2021-09-08] MEDS: fluoxetine 20 mg Capsule PO (11:17)
[2021-09-08] MEDS: nystatin 100,000 unit/mL UDC 5 mL 100000 UNIT PO ×2 (11:17→13:09)
[2021-09-08] MEDS: enoxaparin 120 mg/0.8 mL Syringe 115 MG SUBCUT (11:18)
[2021-09-08] MEDS: FUROsemide 10 mg/mL SDV 10mL 60 MG IVP (11:19)
[2021-09-08] MEDS: docusate sodium 100 mg Capsule PO (11:20)
[2021-09-08 11:56] LABS: Glucose Point of Care 141 mg/dL (70-110)
[2021-09-08] MEDS: morphine 4 mg/mL SDV 1 mL 2 MG IVP ×2 (12:19→16:01)
--- NOTE | 2021-09-08 13:07 | P.PN_ITS ---
Subjective Subjective: This morning patient was performed when I evaluated her, ABG reviewed, discussed case with RT, updated her Plan is to continue proning, I am not planning to start feeding at this point Continue Lasix 60 mg IV push on daily basis Continue aztreonam and metronidazole, MRSA PCR negative Vitals/I&O/Wt Last Vital Signs Temp 97.5 F L 09/08/21 08:30 Pulse 96 09/08/21 11:20 Resp 39 H 09/08/21 12:19 BP 144/60 09/08/21 08:30 Pulse Ox 94 09/08/21 11:20 09/07/21 09/08/21 09/08/21 22:59 06:59 14:59 Intake Total 667.463 / 815.710 833.137 / 1648.847 252.694 / 252.694 Output Total 1000 / 1000 1450 / 2450 Balance -332.537 / -184.290 -616.863 / -801.153 252.694 / 252.694 Weight last 48 hrs Weight 115.757 kg Weight 52.617 kg Physical Exam Narrative: Patient was prone Intubated and sedated and paralyzed Signs of volume overload, extremities are puffy Yellow-colored urine Peak pressure 33 Neuro exam limited Patient is proned Assisted bilateral breath sounds Urinary Catheter Management: Alva: Cath Placed During This Visit: yes, but has since been removed by the nurse Reason for Continuing Indwelling Catheter: Accurate Measurement of Urinary Output in Critically Ill Patients Urinary Catheter Date of Insertion: 08/20/21 Urinary Catheter Time of Insertion: 22:30 Date Urinary Catheter Removed: 09/03/21 Time Urinary Catheter Discontinued: 17:00 Data : 09/08/21 04:45 09/08/21 04:45 Micro: Microbiology 09/07/21 10:30 Gram Stain - Final Sputum - Endotracheal Tube Aspirate Sputum Culture - Preliminary A&P Assessment and plan (1) PTSD (post-traumatic stress disorder): Status: Acute (2) Fever: Status: Acute (3) Acute respiratory distress syndrome (ARDS) due to 2019 novel coronavirus: Status: Acute (4) Bacteremia due to Staphylococcus epidermidis: Status: Acute (5) Acute kidney injury superimposed on CKD: Status: Acute (6) Acute encephalopathy: Status: Acute (7) COVID-19: Status: Acute (8) 2019 novel coronavirus-infected pneumonia (NCIP): Status: Acute (9) Acute respiratory failure requiring reintubation: Status: Acute Plan Severe ARDS related to COVID-19 patient was re intubated on 09/07 Art line and central line placed 09/07 After intubation patient remained hypercapnic which improved with scheduled bronchodilator treatment which reduced her peak and plateau pressures This morning with proning her pH is around 7.24, target pH is around 7.25 High PCO2 after intubation and proning is a poor prognostic sign probably r elated to underlying development of pulmonary hypertension with fibrotic stage of ARDS does not want any aggressive intervention in case of further worsening however since she responds very well to proning we will continue proning her at this point Continue IV antibiotics Lasix on daily basis Patient is sedated and paralyzed Hold off on tube feeds for now DNR/DNI Continue therapeutic dose of Lovenox Case was discussed with Dr. Avelar who helped us to manage vent settings on 09/07 Attestations Medical Necessity Statement*: Continue ICU management Time Spent in Patient Care: 20mins Procedures Arterial Line Size (Gauge): 20 Coding Level of Care Code Acute Tool Coordinator for Chg Fwd Diagnoses PTSD (post-traumatic stress disorder) F43.10 Fever R50.9 Acute respiratory distress syndrome (ARDS) due to 2019 novel coronavirus U07.1; J80 Bacteremia due to Staphylococcus epidermidis R78.81; B95.7 Acute kidney injury superimposed on CKD N17.9; N18.9 Acute encephalopathy G93.40 COVID-19 U07.1 2019 novel coronavirus-infected pneumonia (NCIP) U07.1; J12.82 Acute respiratory failure requiring reintubation J96.00
[2021-09-08] MEDS: rocuronium 10 mg/mL INJ 5mL 150 MG IVP (14:11)
[2021-09-08] MEDS: cisatracurium 100 MG in sodium chloride 0.9% 50 ML 12.63 MG IV (14:40)
--- NOTE | 2021-09-08 14:46 | PC.NURSE ---
Dr. Reed called and notified patient's respiratory rate still 40s-50s despite being on sedation, paralytic, and extra dose of Rocuronium. HR now going into 140s occasionally. Dr. Reed to call patient's family and notify of worsening vitals. Patient is AND.
[2021-09-08] MEDS: propofol 1,000 MG/100 ML INJ 57.74 MG IV ×2 (15:16→17:09)
--- NOTE | 2021-09-08 17:04 | PC.NURSE ---
2nd proning sessing started at 1700 due to worsening vital signs. SPO2 70%, vent 100%, RR 50-60s. Family at bedside.
[2021-09-08] MEDS: cisatracurium 100 MG in sodium chloride 0.9% 50 ML 15.79 MG IV (17:43)
[2021-09-08 18:04] LABS: Glucose Point of Care 132 mg/dL (70-110)
--- NOTE | 2021-09-08 18:10 | PC.NURSE ---
Patient now vent compliant but SPO2 67%, BP trending down, RR 34. Propofol and nimbex titrated down. Family does not want to escalate care by adding Levophed at this time. They have verbal understanding that patient is showing signs that she is actively dying. Dr. Reed aware of condition.
--- NOTE | 2021-09-08 19:08 | PC.NURSE ---
Family considering comfort measures and terminal extubation. Dr. Reed in room. Family ask for 15 minutes to make a decision. Family do not want any escalation in care.
--- NOTE | 2021-09-08 19:14 | PM.MISC ---
Miscellaneous Note Note: Reevaluated the patient while she was proned at 7 PM family was at the bedside Patient was on 100% FiO2 sats 60% She has maxed on levo, is stating that he does not want us to start vasopressin or another medication to support her vitals, he does understand that at this point her body is giving up and we are prolonging her suffering's, daughter was also at the bedside, the questions were answered to the satisfaction, they have decided to pursue comfort measures and terminally extubate the patient RT, overnight ICU nurse updated
--- NOTE | 2021-09-08 19:34 | PM.DDS ---
Discharge Providers DDS Date of Admission: 08/20/21 19:11 Date Summary Completed: 09/08/21 Attending Provider at Admission: Vahe Cordero MD Time of : 19:32 Attending Provider at Discharge: Mario Reed MD Primary Care Provider: Radha Agustin MD DS Diagnoses Hospital Diagnoses (1) PTSD (post-traumatic stress disorder): (2) Fever: (3) Acute respiratory distress syndrome (ARDS) due to 2019 novel coronavirus: (4) Bacteremia due to Staphylococcus epidermidis: (5) Acute kidney injury superimposed on CKD: (6) Acute encephalopathy: (7) COVID-19: (8) 2019 novel coronavirus-infected pneumonia (NCIP): (9) Acute respiratory failure requiring reintubation: Permanent Problem Comments: 09/07 Reason for Visit Reason for Visit COVID +/ RESPIRATORY DISTRESS Summary Date and Time of Date of : 09/08/21 Time of : 19:32 Summary Summary: Patient was admitted for management of Covid 19 lidded hypoxia, first intubation 08/26, finished 3 cycles of proning with improvement in oxygenation she was extubated to 7 L nasal cannula on 09/02, she did well until 09/07 and got intubated again on 09/07, art line, right femoral central line was placed on the same day, she was proned this time however we were struggling to improve ventilation, she had high peak and plateau pressure, however with scheduled DuoNeb we were able to relieve bronchoconstriction and PCO2 improved, in the morning as soon as we made her supine she started breathing above the vent her breathing was in 30 to 40s, required IV push of rocuronium, morphine and Ativan. Her blood pressure started dropping. FiO2 was 100% on the vent and she was saturating 60%, decided to not escalate vasopressors and lean towards comfort measures. She was terminally extubated and she at around 732pm. Family is at the bedside. Additional Data Confirmation of as documented by pronouncing clinician: no pulse, no respirations, no heart sounds and pupils fixed and dilated Family: at bedside Additional persons at bedside: nursing staff Attending/PCP notified?: I am attending Was code activated?: No Autopsy requested?: No Advance directives?: No Hospice patient?: No Discharge Plan Discharge Patient Disposition: Home Condition: Stable Prescriptions: No Action verapamil 180 mg capsule,ext rel. pellets 24 hr 180 mg PO DAILY 90 Days Qty: 90 3RF albuterol sulfate 2.5 mg /3 mL (0.083 %) solution for nebulization 2.5 mg inhalation Q4H PRN (Reason: Shortness Of Breath) 0RF albuterol sulfate [ProAir HFA] 90 mcg/actuation HFA aerosol inhaler 2 puff inhalation Q6H PRN (Reason: Shortness Of Breath) 0RF (DME) Night Splint to the left See Rx Instructions .Route .MEDSUPPLY Qty: 1 0RF Rx Instructions: As directed Zyrtec 10 mg capsule 10 mg PO DAILY 0RF cholecalciferol (vitamin D3) 4,000 unit capsule 4,000 unit PO DAILY 0RF epinephrine 0.3 mg/0.3 mL auto-injector 0.3 mg IM Q10M PRN (Reason: Allergic Reaction) 0RF hydroxyzine HCl 25 mg tablet 25 mg PO TID PRN (Reason: Anxiety) 0RF lidocaine 5 % adhesive patch,medicated 1 patch TOPICAL DAILY 0RF miconazole nitrate 2 % powder 1 applic TOPICAL DAILY 0RF montelukast [Singulair] 10 mg tablet 10 mg PO DAILY 0RF polyvinyl alcohol 1.4 % drops 1 drop ophthalmic (eye) Q4H PRN (Reason: Dry Eyes) 0RF triamterene-hydrochlorothiazid [Maxzide] 75-50 mg tablet 1 tab PO BID 0RF omeprazole 20 mg capsule,delayed release(DR/EC) 20 mg PO DAILY 0RF (DME) [facility] See Rx Instructions .Route .MEDSUPPLY Qty: 2 0RF Rx Instructions: As directed fluoxetine [Prozac] 20 mg capsule 20 mg PO DAILY 0RF aspirin [Adult Aspirin Regimen] 81 mg tablet,delayed release (DR/EC) 81 mg PO DAILY 0RF fluticasone propion-salmeterol [Wixela Inhub] 250-50 mcg/dose blister with device 1 inh inhalation BID Qty: 60 3RF dexamethasone [Decadron] 6 mg tablet 6 mg PO DAILY Qty: 10 0RF ondansetron 4 mg tablet,disintegrating 4 mg PO Q8H PRN (Reason: nausea and vomiting) 5 Days Qty: 15 0RF Referrals: Radha Agustin MD [Primary Care Provider] - Patient Instructions: Opioid Safety DS Attestations Time Spent in /Discharge Care*: less than 30 min Quality - AMI: AMI present?: No Quality - Stroke: CVA present?: No Quality - VTE: VTE present?: No Coding Level of Care Code Acute Bullet Assembly Press Operator for Chg Fwd Diagnoses PTSD (post-traumatic stress disorder) F43.10 Fever R50.9 Acute respiratory distress syndrome (ARDS) due to 2019 novel coronavirus U07.1; J80 Bacteremia due to Staphylococcus epidermidis R78.81; B95.7 Acute kidney injury superimposed on CKD N17.9; N18.9 Acute encephalopathy G93.40 COVID-19 U07.1 2019 novel coronavirus-infected pneumonia (NCIP) U07.1; J12.82 Acute respiratory failure requiring reintubation J96.00
--- NOTE | 2021-09-08 20:06 | PC.NURSE ---
1900 Report received Family at bedside Dr. Neri at bedside all gtts stopped Family plans to terminally extubate soon 1929Comfort care status RT at bedside extubated Pt unresponsive Family called to room [address] Balderas updated. Family with Pt [address] [facility] in [place] [address] MTS notified pending further screening
--- NOTE | 2021-09-08 21:14 | PC.NURSE ---
[facility] called not candidate for donation cleared to release body Per Bridget at [facility] notified plans to release body
--- NOTE | 2021-09-08 22:41 | PC.NURSE ---
Witnessed waste of Fentanyl and versed by Charisma Cartagena RN.
== END 2021-09-08 22:27 | disposition expired | DRG 207 ==
LOC: ER 18:24 → ICU 19:49 → MEDSURG 09-03 21:44 → ICU 09-05 18:18
PROVIDERS: Family Medicine; Internal Medicine; Student in an Organized Health Care Education/Training Program; Admitting Provider Family Medicine; Emergency Provider Emergency Medicine; PCP Family Medicine; Visit Provider Internal Medicine
DX: U07.1 COVID-19 (principal); J12.82 Pneumonia due to coronavirus disease 2019; J80 Acute respiratory distress syndrome; Z68.41 Body mass index [BMI] 40.0-44.9, adult; G93.49 Other encephalopathy; N17.9 Acute kidney failure, unspecified; E11.22 Type 2 diabetes mellitus with diabetic chronic kidney disease; I12.9 Hypertensive chronic kidney disease with stage 1 through stage 4 chronic kidney disease, or unspecified chronic kidney disease; N18.9 Chronic kidney disease, unspecified; J44.9 Chronic obstructive pulmonary disease, unspecified; J45.30 Mild persistent asthma, uncomplicated; E66.01 Morbid (severe) obesity due to excess calories; E78.5 Hyperlipidemia, unspecified; Z85.3 Personal history of malignant neoplasm of breast; Z85.43 Personal history of malignant neoplasm of ovary; M32.9 Systemic lupus erythematosus, unspecified; M19.90 Unspecified osteoarthritis, unspecified site; Z87.891 Personal history of nicotine dependence; G47.33 Obstructive sleep apnea (adult) (pediatric); Z66 Do not resuscitate; K12.1 Other forms of stomatitis; F41.0 Panic disorder [episodic paroxysmal anxiety]; B95.8 Unspecified staphylococcus as the cause of diseases classified elsewhere; F43.12 Post-traumatic stress disorder, chronic; Z91.410 Personal history of adult physical and sexual abuse; F41.9 Anxiety disorder, unspecified; E87.5 Hyperkalemia; E86.0 Dehydration
CPT/HCPCS: 31500; 36415; 36416; 36556; 36592; 36600; 51702; 71045; 71275; 76770; 76857; 80048; 80051; 80053; 80061; 80202; 81001; 81003; 82009; 82330; 82436; 82550; 82570; 82728; 82803; 82805; 82962; 83036; 83520; 83540; 83550; 83605; 83615; 83721; 83735; 83880; 83935; 84100; 84133; 84145; 84300; 84443; 84478; 84484; 84540; 85007; 85025; 85378; 85384; 85610; 85730; 85999; 86140; 86403; 87040; 87070; 87086; 87150; 87186; 87205; 87449; 87641; 87804; 92523; 92526; 92610; 93005; 93970; 94002; 94003; 94640; 94660; 94664; 94799; 96365; 96372; 96375; 97110; 97162; 97167; 97530; 97535; 99291; A4570; C1751; C9113; J0330; J0360; J0743; J1100; J1200; J1644; J1650; J1815; J1940; J2020; J2060; J2250; J2270; J2405; J2704; J2930; J3010; J3262; J3370; J3480; J3490; J7030; J7040; J7050; J7614; J7626; J7644; J7799; Q9967; S0030